=== PATIENT | female | born 1950 | race Asian ===

== ENCOUNTER 2016-10-21 12:48 | Outpatient (CLI) | payer MEDICARE, OTHER | END 2016-10-21 12:49 | disposition home or self-care (01) | DX: M85.88 Other specified disorders of bone density and structure, other site (principal) ==

== ENCOUNTER 2016-10-21 12:52 | Outpatient (CLI) | payer MEDICARE, OTHER | END 2016-10-21 12:53 | disposition home or self-care (01) | DX: Z12.31 Encounter for screening mammogram for malignant neoplasm of breast (principal) ==

== ENCOUNTER 2017-11-23 15:44 | Outpatient (CLI) | payer OTHER, MEDICARE ==
--- NOTE | 2017-11-25 13:08 | Mammography Report ---
Procedure Date: 11/23/2017 Accession Number: [id number] / [id number] Procedure: MGN - Screening Mammo Dig Bilat CPT Code: FULL RESULT: EXAM: Screening Mammo Dig Bilat DATE: 11/23/2017 4:00 PM CLINICAL HISTORY: Routine screening TECHNIQUE: Bilateral CC and MLO views were obtained. COMPARISON: 10/21/2016, 10/24/2015, 10/17/2014, 10/24/2013, and 10/18/2012 FINDINGS: The breast tissue is heterogeneously dense. No significant interval change. No suspicious masses, clustered microcalcifications, skin thickening, or regions of architectural distortion are identified. IMPRESSION: Negative. RECOMMENDATION: Routine annual screening unless otherwise clinically indicated. BIRADS CATEGORY 1: Negative. STANDARD QUALIFYING STATEMENTS: 1. This examination was reviewed with the aid of Computer-Aided Detection (CAD). 2. A negative or benign imaging report should not delay biopsy if clinically suspicious findings are present. Consider surgical consultation if warrented. More than 5% of cancers are not identified by imaging. 3. Dense breasts may obscure an underlying neoplasm.
== END 2017-11-23 15:45 | disposition home or self-care (01) ==
LOC: DI.N 15:44
PROVIDERS: ATTEND Physician Assistant Medical
DX: Z12.31 Encounter for screening mammogram for malignant neoplasm of breast (principal)
CPT/HCPCS: 77067

== ENCOUNTER 2018-05-13 07:36 | Outpatient (CLI) | payer MEDICARE, OTHER ==
[2018-05-13 19:55] LABS: HB2 TOTAL 13.4 g/dL; HEMOGLOBIN A1C 0.61 g/dL; HEMOGLOBIN A1C % 6.3 % (4.6-6.2)
== END 2018-05-13 23:59 | disposition home or self-care (01) ==
LOC: LAB.N 07:36
PROVIDERS: ATTEND Physician Assistant Medical
DX: R73.9 Hyperglycemia, unspecified (principal)
CPT/HCPCS: 36415; 83036

== ENCOUNTER 2018-10-08 10:10 | Outpatient (CLI) | payer OTHER, MEDICARE ==
--- NOTE | 2018-10-08 16:19 | XRAY Report ---
Reason: SHOULDER IMPINGEMENT SYNDROME,LEFT Procedure Date: 10/08/2018 Accession Number: [id number] / [id number] Procedure: WCP - Shoulder 2 View LT CPT Code: FULL RESULT: EXAM: LEFT SHOULDER RADIOGRAPHY EXAM DATE: 10/08/2018 10:16 AM. CLINICAL HISTORY: Chronic left shoulder pain. COMPARISON: None. TECHNIQUE: 2 views. FINDINGS: Bones: Normal. No fracture or bone lesion. Joints: The glenohumeral and acromioclavicular joints are normal. Soft tissues: The visualized hemithorax is unremarkable. No soft tissue swelling. IMPRESSION: Normal shoulder radiography. RADIA
== END 2018-10-08 10:11 | disposition home or self-care (01) ==
LOC: DI.WCP 10:10
PROVIDERS: ATTEND Physician Assistant Medical
DX: M75.42 Impingement syndrome of left shoulder (principal)

== ENCOUNTER 2018-10-11 08:50 | Outpatient (CLI) | payer OTHER, MEDICARE ==
[2018-10-11 12:30] LABS: BASOPHILS # (AUTO) 0.1 10^3/uL (0.0-0.1); EOSINOPHILS # (AUTO) 0.2 10^3/uL (0.0-0.7); EOSINOPHILS % (AUTO) 3.5 %; HGB - HEMOGLOBIN 12.6 g/dL (12.0-16.0); LYMPHOCYTES # (AUTO) 1.4 10^3/uL (1.5-3.5); LYMPHOCYTES % (AUTO) 22.3 %; MEAN CORPUSCULAR HEMOGLOBIN 31.8 pg (27.0-31.0); MEAN CORPUSCULAR HGB CONC 33.1 g/dL (32.0-36.0); MEAN CORPUSCULAR VOLUME 96.1 fL (81.0-99.0); MEAN PLATELET VOLUME 8.7 fL (7.9-10.8); MONOCYTES # (AUTO) 0.3 10^3/uL (0.0-1.0); MONOCYTES % (AUTO) 5.5 %; NEUTROPHILS # (AUTO) 4.1 10^3/uL (1.5-6.6); NEUTROPHILS % (AUTO) 67.7 %; PLT - PLATELET COUNT 250 10^3/uL (130-450); RED BLOOD COUNT 3.97 10^6/uL (4.20-5.40); RED CELL DISTRIBUTION WIDTH 12.9 % (12.0-15.0); WHITE BLOOD COUNT 6.1 x10^3/uL (4.8-10.8)
[2018-10-11 14:34] LABS: ALBUMIN 4.4 g/dL (3.2-5.5); ALBUMIN/GLOBULIN RATIO 1.4 (1.0-2.2); ALKALINE PHOSPHATASE 48 IU/L (42-121); ALT ALANINE AMINOTRANSFERASE 21 IU/L (10-60); AST ASPARTATE AMINOTRANSFERASE 24 IU/L (10-42); BILIRUBIN,TOTAL 0.9 mg/dL (0.2-1.0); BUN - BLOOD UREA NITROGEN 34 mg/dL (6-20); CALCIUM 9.3 mg/dL (8.5-10.3); CARBON DIOXIDE - CO2 28 mmol/L (21-32); CHLORIDE 97 mmol/L (101-111); CHOL/HDL RATIO 2.8 (<4.4); CHOLESTEROL 146 mg/dL; CREATININE 0.8 mg/dL (0.4-1.0); GFR - MDRD 71 (>89); GLUCOSE 139 mg/dL (70-100); HDL CHOLESTEROL 52 mg/dL; LDL CHOLESTEROL,CALCULATED 69 mg/dL; LDL/HDL RATIO 1.3 (<4.4); SODIUM 136 mmol/L (135-145); TOTAL PROTEIN 7.6 g/dL (6.7-8.2); VLDL CHOLESTEROL 25 mg/dL
[2018-10-12 12:43] LABS: HEPATITIS C ANTIBODY NON-REACTIVE (NON-REACTIVE)
== END 2018-10-11 08:51 | disposition home or self-care (01) ==
LOC: LAB.WCP 08:50
PROVIDERS: ATTEND Physician Assistant Medical
DX: Z00.00 Encounter for general adult medical examination without abnormal findings (principal); Z11.59 Encounter for screening for other viral diseases; E78.5 Hyperlipidemia, unspecified; J44.9 Chronic obstructive pulmonary disease, unspecified
CPT/HCPCS: 36415; 80053; 80061; 83721; 84443; 85025; 86803

== ENCOUNTER 2018-11-23 16:15 | Outpatient (CLI) | payer OTHER, MEDICARE ==
--- NOTE | 2018-11-24 08:25 | DEXA Report ---
Reason: BONE DISORDER Procedure Date: 11/23/2018 Accession Number: [id number] / [id number] Procedure: DEX - Dexa Spine and/or Hip CPT Code: FULL RESULT: EXAM: Dexa Spine and/or Hip DATE: 11/23/2018 5:05 PM CLINICAL HISTORY: BONE DISORDER TECHNIQUE: Dual energy x-ray absorptiometry (DXA) was performed on a [employer] System. Regions measured are the AP Spine, femoral neck, and if needed forearm. COMPARISON: 10/21/2016. In accordance with the International Society for Clinical Densitometry (ISCD) guidelines, data from previous exams may be reanalyzed using current recommendations and techniques. This is done to allow a more accurate basis for comparison with the current study. FINDINGS: The data for the lumbar spine is as follows: BMD (g/cm/cm) T-SCORE Z-SCORE REGION L1 1.070 -0.5 1.1 L2 1.165 -0.3 1.4 L3 1.299 0.8 2.5 L4 1.460 2.2 3.8 TOTAL 1.271 0.8 2.4 NOTE: All evaluable vertebrae are used for classification The data for the hip is as follows: BMD (g/cm/cm) T-SCORE Z-SCORE REGION Neck 0.840 -1.4 0.2 TOTAL 0.850 -1.2 0.2 NOTE: The femoral neck or total proximal femur, whichever is lowest, is used for classification. DXA RESULTS SUMMARY: Spine SCAN DATE AGE BMD CHANGE VS CHANGE VS PREVIOUS PREVIOUS % [birth year][age]23[birth year]2018 [age] 1.271 0.003 0.2 10/21/2016 66.0 1.268 * Denotes significant change at the 95% confidence level. Denotes dissimilar scan types or analysis methods. DXA RESULTS SUMMARY: Hip SCAN DATE AGE BMD CHANGE VS CHANGE VS PREVIOUS PREVIOUS % [birth year][age]23[birth year]2018 68.1 0.850 -0.031 -3.5 10/21/2016 66.0 0.881 * Denotes significant change at the 95% confidence level. Denotes dissimilar scan types or analysis methods. IMPRESSION: THE WHO CLASSIFICATION BASED ON THE INTERNATIONAL REFERENCE STANDARD IS OSTEOPENIA. THE FRACTURE RISK IS INCREASED. RECOMMENDATION: Patients with diagnosis of osteoporosis or osteopenia should have regular bone mineral density assessment. For those eligible for Medicare, routine testing is allowed once every 2 years. Testing frequency can be increased for patients who have rapidly progressing disease or for those who are receiving medical therapy to restore bone mass. COMMENT: World Health Organization (WHO) definitions for osteoporosis and osteopenia: NORMAL BMD: T-score at -1.0 or higher, fracture risk is low OSTEOPENIA BMD: T-score between -1.0 and -2.5, fracture risk is increased. OSTEOPOROSIS BMD: T-score at -2.5 or lower, fracture risk is high. National Osteoporosis Foundation recommends: 1. Obtain adequate dietary calcium (at least 1200 mg per day) and vitamin D (400-800 international units per day). 2. Participate, as appropriate, in regular weightbearing and muscle-strengthening exercise. 3. Avoid tobacco use and reduce alcohol and caffeine intake. 4. For more detailed information see the website at www.NOF.org.
== END 2018-11-23 16:16 | disposition home or self-care (01) ==
LOC: DI 16:15
PROVIDERS: ATTEND Physician Assistant Medical
DX: M85.88 Other specified disorders of bone density and structure, other site (principal)
CPT/HCPCS: 77080

== ENCOUNTER 2018-11-23 16:17 | Outpatient (CLI) | payer OTHER, MEDICARE ==
--- NOTE | 2018-11-24 09:01 | Mammography Report ---
Reason: ANNUAL Procedure Date: 11/23/2018 Accession Number: [id number] / [id number] Procedure: GONZALO - Screening Mammo Dig Bilat CPT Code: FULL RESULT: EXAM: Screening Mammo Dig Bilat DATE: 11/23/2018 4:49 PM CLINICAL HISTORY: Screening encounter. History of nulliparity. TECHNIQUE: (B) - Bilateral CC and MLO views were obtained. COMPARISON: 11/23/2017 through 10/21/2016. PARENCHYMAL PATTERN: (D) - The breast(s) demonstrate(s) heterogeneously dense fibroglandular parenchyma. FINDINGS: There are coarse typically benign calcifications. There are typically benign vascular calcifications. There are no suspicious masses, calcifications, or areas of distortion. IMPRESSION: Benign findings. BI-RADS category 2. RECOMMENDATION: (ANNUAL) - Recommend routine annual screening mammography. BI-RADS CATEGORY: (2) - Benign Findings. STANDARD QUALIFYING STATEMENTS: 1. This examination was not reviewed with the aid of Computer-Aided Detection (CAD). 2. A negative or benign imaging report should not preclude biopsy if clinically suspicious findings are present. 3. Dense breasts may obscure an underlying neoplasm. 4. This examination was reviewed without the aid of 3D breast imaging (tomosynthesis).
== END 2018-11-23 16:18 | disposition home or self-care (01) ==
LOC: DI 16:17
DX: Z12.31 Encounter for screening mammogram for malignant neoplasm of breast (principal)
CPT/HCPCS: 77067

== ENCOUNTER 2019-03-25 17:45 | Outpatient (CLI) | payer OTHER, MEDICARE ==
[2019-03-25 18:06] LABS: CREATININE 0.8 mg/dL (0.4-1.0)
[2019-03-25] MEDS ORDERED: IOVERSOL 320 100 ML VIAL IVP ONE ×2 (18:40→18:58)
--- NOTE | 2019-03-28 15:40 | CT Report ---
Reason: CALF CLAUDICATION, ARTERIAL INSUFFICIENCY,STENOSIS Procedure Date: 03/25/2019 Accession Number: [id number] / [id number] Procedure: CT - ANGIO ABD RUNOFF W/WO - B/L CPT Code: FULL RESULT: EXAM: ANGIOGRAM ABDOMEN RUNOFF WITH AND WITHOUT- BILATERAL EXAM DATE: 03/25/2019 06:56 PM. INDICATION: Calf claudication, arterial insufficiency, stenosis. COMPARISONS: 05/09/2013 4:25 PM. PELVIS ANGIO 03/25/2019 6:45 PM. TECHNIQUE: Routine helical imaging was performed through the abdomen, pelvis and bilateral lower extremities in arterial phase. IV Contrast: 120 cc of [id number]. Reconstructions: Coronal, sagittal, and 3D MIP reconstructions were performed. In accordance with CT protocol optimization, one or more of the following dose reduction techniques were utilized for this exam: automated exposure control, adjustment of mA and/or KV based on patient size, or use of iterative reconstructive technique. FINDINGS: Vascular: Locations of stenosis greater than 50% described below. Moderate stenosis is defined as 50-75% stenosis. High grade stenosis is defined as >75% stenosis. Atheromatous disease: Diffuse atheromatous plaque disease. Aorta: No hemodynamically significant focal stenosis, aneurysm or dissection. Celiac Bartley: Conventional vascular anatomy noted. Mild atheromatous disease at the origin of the celiac axis. No hemodynamically significant focal stenosis, aneurysm or dissection. SMA: Moderate stenosis at the origin of the SMA is noted. Remaining portions of the SMA are widely patent. Right renal artery: Patent without significant ostial or flow-limiting stenosis. Mild atheromatous narrowing at the origin of the right renal artery. Left renal artery: Patent without significant ostial or flow-limiting stenosis. Mild multifocal diffuse left renal artery atheromatous disease. CATRACHITA: Patent. No hemodynamically significant focal stenosis, aneurysm or dissection. Atheromatous disease noted at the origin of the CATRACHITA. Right Leg: Right Common, External and Internal Iliac: No hemodynamically significant focal stenosis, aneurysm or dissection. Patent right external iliac artery stent. Right Common Femoral, Superficial Femoral and Profunda Femoris arteries: Mild to moderate stenosis at the origin of the right superficial femoral and profunda femoral arteries. No hemodynamically significant stenosis of the right common femoral artery. Mild to moderate multifocal right superficial femoral artery stenosis. Right Popliteal and tibioperoneal Trunk: Patent. Anterior Tibial: Opacified to level of ankle. No hemodynamically significant focal stenosis, aneurysm or dissection. Posterior Tibial: Opacified to level of ankle. No hemodynamically significant focal stenosis, aneurysm or dissection. Peroneal: Opacified to level of ankle. No hemodynamically significant focal stenosis, aneurysm or dissection. Left Leg: Left Common, External and Internal Iliac: No hemodynamically significant focal stenosis, aneurysm or dissection. Patent left external iliac artery stent. Left Common Femoral, Superficial Femoral and Profunda Femoris arteries: No hemodynamically significant focal stenosis, aneurysm or dissection. Left Popliteal and Tibioperoneal Trunk: Patent. Anterior Tibial: Opacified to level of ankle. No hemodynamically significant focal stenosis, aneurysm or dissection. Posterior Tibial: Opacified to level of ankle. No hemodynamically significant focal stenosis, aneurysm or dissection. Peroneal: Opacified to level of ankle. No hemodynamically significant focal stenosis, aneurysm or dissection. Lung bases: Moderate bronchial wall thickening. Dependent atelectasis. Subpleural reticulation is noted bilaterally worse on the right and on the left. Atelectatic changes are noted in the right middle lobe. Small to moderate hiatal hernia. No cardiac enlargement. No pericardial effusion.No pleural effusion. Abdomen: 0.9 cm hypervascular focus in the right liver on image 2, 64 could represent a small flash filling hemangioma. No concerning liver mass or intrahepatic bile duct dilation. 1.6 cm low-density left adrenal nodule on image 2, 66. Remaining adrenal glands are normal. Normal gallbladder, common bile duct, pancreas and spleen. Simple renal cysts. No mass, stone or hydronephrosis. Peritoneal Cavity: No free fluid, free air, or acute inflammatory process.No evidence of intraluminal contrast concerning for hemorrhage. There are multiple diverticula seen which most severely affect the sigmoid colon. No wall thickening or adjacent inflammation seen. No obstruction noted. The appendix is well visualized and normal.Remaining stomach, small bowel and large bowel are normal. Small fat-containing umbilical hernia is noted. No inguinal hernia. Pelvis: Low-density 6.8 cm left ovarian cyst without thickened septations or mural nodules on image 2, 160. Low density 2.8 cm right ovarian cyst on image 163. Uterus is heterogeneous probably representing multiple fibroids.Pelvic contents otherwise normal. Lymph nodes: No pathologic adenopathy noted. Extremities: Lower extremity bones and soft tissues unremarkable.No significant degenerative changes. Diffuse degenerative disk disease and levoscoliosis of the lumbar spine. IMPRESSION: CTA of the abdominal aorta and iliac vessels: 1. Moderate stenosis at the origin of the SMA. Remaining mesenteric vessels are widely patent. 2. No hemodynamically significant focal stenosis, aneurysm or dissection. CTA of the lower extremities: No hemodynamically significant focal stenosis, aneurysm or dissection. 1. Mild to moderate stenosis at the origin of the right profunda femoral and superficial femoral arteries. 2. Multifocal mild to moderate atheromatous stenosis of the right superficial femoral artery. No hemodynamically significant focal stenosis in the remaining vessels of the right lower extremity. 3. No hemodynamically significant focal stenosis in the left lower extremity arterial system. 4. Patent bilateral external iliac artery stents. 5. Three-vessel runoff to the bilateral ankles. CT of the abdomen and pelvis: 1. Diverticulosis. Normal appendix. No inflammatory changes or obstruction. 2. 6.8 cm low density left ovarian cyst without concerning features. Smaller low density right ovarian cyst. Given the patient's age, recommend further evaluation with pelvic ultrasound or MRI examination. 3. Probable 0.9 cm right liver hemangioma. 4.No significant abnormality identified in the abdomen or pelvis. RADIA
== END 2019-03-25 17:46 | disposition home or self-care (01) ==
LOC: DI 17:45
PROVIDERS: ATTEND Surgery Vascular Surgery
DX: K55.1 Chronic vascular disorders of intestine (principal); I70.201 Unspecified atherosclerosis of native arteries of extremities, right leg; K57.30 Diverticulosis of large intestine without perforation or abscess without bleeding; N83.201 Unspecified ovarian cyst, right side; N83.202 Unspecified ovarian cyst, left side
CPT/HCPCS: 36415; 75635; 82565; Q9967

== ENCOUNTER 2019-04-18 08:00 | Outpatient (CLI) | payer OTHER, MEDICARE ==
[2019-04-18 12:22] LABS: ALBUMIN 4.5 g/dL (3.2-5.5); ALBUMIN/GLOBULIN RATIO 1.5 (1.0-2.2); BILIRUBIN,TOTAL 0.8 mg/dL (0.2-1.0); CALCIUM 9.5 mg/dL (8.5-10.3); CREATININE 0.8 mg/dL (0.4-1.0); TOTAL PROTEIN 7.6 g/dL (6.7-8.2)
[2019-04-18 12:38] LABS: HB2 TOTAL 12.9 g/dL; HEMOGLOBIN A1C 0.6 g/dL; HEMOGLOBIN A1C % 6.4 % (4.6-6.2)
== END 2019-04-18 23:59 | disposition home or self-care (01) ==
LOC: LAB.WCP 08:00
PROVIDERS: ATTEND Physician Assistant Medical
DX: R73.9 Hyperglycemia, unspecified (principal)
CPT/HCPCS: 36415; 80053; 83036

== ENCOUNTER 2019-07-15 16:38 | Outpatient (CLI) | payer OTHER, MEDICARE ==
--- NOTE | 2019-07-16 10:15 | Ultrasound Report ---
Reason: OVARIAN MASS Procedure Date: 07/15/2019 Accession Number: [id number] / [id number] Procedure: US - Pelvic w/Transvaginal CPT Code: Final Report FULL RESULT: EXAM: PELVIC ULTRASOUND EXAM DATE: 07/15/2019 05:16 PM. CLINICAL HISTORY: Ovarian mass seen incidentally on CT. COMPARISON: CT angiography 03/25/2019 ANGIO AORTA W/RUNOFF 03/25/2019 6:45 PM. TECHNIQUE: Realtime transabdominal pelvic scan performed to identify the uterus and adnexa and as an overview of other pelvic structures, followed by transvaginal scan to provide greater detail of the uterus and adnexa, with static image documentation. FINDINGS: Uterus: 4.8 x 1.7 x 3.7 cm, volume 16 cc. Anteflexed position. Normal overall size and echotexture. Masses: A centrally calcified exophytic mass from the left lower uterine segment edges 2.7 x 1.5 x 2.2 cm, unchanged. Endometrium: 2 mm. No mass or thickening evident. Cervix: A posterior cervical complex cystic lesion measures 0.7 x 0.8 x 1.4 cm and contains nonvascular internal debris, likely nabothian cyst. This was not well seen on prior CT. Right Ovary: 3.4 x 2.5 x 2.4 cm, volume 10.5 cc. Normal echotexture and blood flow. Dominant follicle or small cyst measures 2.5 cm. Left Ovary: 6.8 x 5.0 x 6.8 cm, volume 121 cc. A prominent simple cyst measures 6.8 x 4.7 x 6.3 cm, unchanged since prior CT. No hemorrhage or torsion evident. Free Fluid: None. Other: None. IMPRESSION: 1. 6.8 cm left ovarian simple cyst unchanged since prior CT. No evidence for hemorrhage or torsion. 2. Left anterior lower uterine segment partially calcified fibroid also unchanged measuring 2.7 cm. 3. 1.4 cm posterior cervical debris-containing nabothian cyst. RADIA
== END 2019-07-15 16:39 | disposition home or self-care (01) ==
LOC: DI 16:38
PROVIDERS: ATTEND Physician Assistant Medical
DX: N83.292 Other ovarian cyst, left side (principal); D25.9 Leiomyoma of uterus, unspecified; N88.8 Other specified noninflammatory disorders of cervix uteri
CPT/HCPCS: 76830; 76856

== ENCOUNTER 2019-08-05 14:36 | Outpatient (CLI) | payer OTHER, MEDICARE ==
--- NOTE | 2019-08-07 22:39 | XRAY Report ---
Reason: COPD Procedure Date: 08/05/2019 Accession Number: [id number] / [id number] Procedure: XR - Chest 2 View X-Ray CPT Code: 30490 Final Report FULL RESULT: EXAM: CHEST RADIOGRAPHY EXAM DATE: 08/05/2019 02:46 PM. CLINICAL HISTORY: COPD. COMPARISON: 10/11/2014 3:46 PM. TECHNIQUE: 2 views. FINDINGS: Lungs/Pleura: No infiltrates. No pleural effusions or pneumothorax. Mediastinum: Heart size within normal limits. No pulmonary vascular congestion. Osseous structures: No significant focal osseous lesions. IMPRESSION: No acute cardiopulmonary process identified radiographically. RADIA
== END 2019-08-05 14:37 | disposition home or self-care (01) ==
LOC: DI 14:36
PROVIDERS: ATTEND Physician Assistant Medical
DX: J44.9 Chronic obstructive pulmonary disease, unspecified (principal)
CPT/HCPCS: 71046

== ENCOUNTER 2019-08-05 14:50 | Outpatient (CLI) | payer OTHER, MEDICARE | END 2019-08-05 14:51 | disposition home or self-care (01) | LOC: LAB 14:50 | PROVIDERS: ATTEND Obstetrics & Gynecology | DX: N83.9 Noninflammatory disorder of ovary, fallopian tube and broad ligament, unspecified (principal) | CPT/HCPCS: 36415; 86304 ==

== ENCOUNTER 2019-08-08 14:55 | Outpatient (CLI) | payer OTHER, MEDICARE | END 2019-08-08 23:59 | disposition home or self-care (01) | LOC: LAB.N 14:55 | PROVIDERS: ATTEND Obstetrics & Gynecology | DX: N83.9 Noninflammatory disorder of ovary, fallopian tube and broad ligament, unspecified (principal) | CPT/HCPCS: 36415; 81599; 86305 ==

== ENCOUNTER 2019-10-13 16:45 | Outpatient (CLI) | payer OTHER, MEDICARE ==
--- NOTE | 2019-10-14 10:35 | Ultrasound Report ---
Reason: OVARIAN MASS Procedure Date: 10/13/2019 Accession Number: [id number] / [id number] Procedure: US - Pelvic w/Transvaginal CPT Code: Final Report FULL RESULT: EXAM: PELVIC ULTRASOUND EXAM DATE: 10/13/2019 06:02 PM. CLINICAL HISTORY: Ovarian mass. COMPARISON: PELVIC W/TRANSVAGINAL 07/15/2019 5:16 PM. TECHNIQUE: Realtime transabdominal pelvic scan performed to identify the uterus and adnexa and as an overview of other pelvic structures, followed by transvaginal scan to provide greater detail of the uterus and adnexa, with static image documentation. FINDINGS: Uterus: 5 x 4.8 x 3 cm, volume 37.7 cc. Anteverted position. Normal overall size and echotexture. Masses: 1. Left partly calcified anterior fundal subserosal, 1.9 x 1.9 x 2.3 cm. Endometrium: 2 mm. No increased vascularity. No endometrial masses. Cervix: Complex nabothian cyst noted. Right Ovary: 3.5 x 2.6 x 3 cm, volume 14.2 cc previously measured 10.5 cc. Within the right ovary is a 2.3 x 2 x 1.9 cm cyst previously measured at 2.5 x 2.1 x 2 cm. Left Ovary: 5.5 x 6.5 x 7.2 cm, volume 134.3 cc, previously 121 cc. Within the left ovary is a 5.8 x 4.3 x 6.4 cm cyst previously measured at 6.8 x 4.7 x 6.3 cm. Overall appearance is similar. Free Fluid: None. Other: None. IMPRESSION: 1. Myomatous uterus. 2. Bilateral ovarian cysts on the right measuring 2.3 cm, previously 2.5 cm although overall similar in size and left ovarian 6.4 cm cyst similar in size, previously measured 6.8 cm. Appearance is similar. Continued interval surveillance recommended of both ovarian cysts considering patient's current postmenopausal status in particular the larger left ovarian cyst therefore follow-up in 6-12 months recommended unless further evaluation is considered warranted with MRI. RADIA
== END 2019-10-13 16:46 | disposition home or self-care (01) ==
LOC: DI 16:45
PROVIDERS: ATTEND Obstetrics & Gynecology
DX: D25.2 Subserosal leiomyoma of uterus (principal); N83.202 Unspecified ovarian cyst, left side; N83.201 Unspecified ovarian cyst, right side
CPT/HCPCS: 76830; 76856

== ENCOUNTER 2019-10-19 15:30 | Outpatient (CLI) | payer OTHER, MEDICARE | END 2019-10-19 23:59 | disposition home or self-care (01) | LOC: LAB.WCP 15:30 | PROVIDERS: ATTEND Obstetrics & Gynecology | DX: N83.9 Noninflammatory disorder of ovary, fallopian tube and broad ligament, unspecified (principal) | CPT/HCPCS: 36415; 81599; 86304; 86305 ==

== ENCOUNTER 2019-11-16 07:58 | Outpatient (CLI) | payer OTHER, MEDICARE ==
[2019-11-16 12:53] LABS: ALBUMIN 4.2 g/dL (3.2-5.5); ALBUMIN/GLOBULIN RATIO 1.4 (1.0-2.2); ALKALINE PHOSPHATASE 51 IU/L (42-121); ALT ALANINE AMINOTRANSFERASE 24 IU/L (10-60); AST ASPARTATE AMINOTRANSFERASE 23 IU/L (10-42); BILIRUBIN,TOTAL 0.6 mg/dL (0.2-1.0); BUN - BLOOD UREA NITROGEN 26 mg/dL (6-20); CALCIUM 9.2 mg/dL (8.5-10.3); CARBON DIOXIDE - CO2 30 mmol/L (21-32); CHLORIDE 100 mmol/L (101-111); CHOL/HDL RATIO 3.6 (<4.4); CHOLESTEROL 192 mg/dL; CREATININE 0.7 mg/dL (0.4-1.0); GLUCOSE 117 mg/dL (70-100); HDL CHOLESTEROL 53 mg/dL; LDL CHOLESTEROL,CALCULATED 116 mg/dL; LDL/HDL RATIO 2.2 (<4.4); SODIUM 139 mmol/L (135-145); TOTAL PROTEIN 7.3 g/dL (6.7-8.2); VLDL CHOLESTEROL 23 mg/dL
[2019-11-16 13:36] LABS: HB2 TOTAL 12.6 g/dL; HEMOGLOBIN A1C 0.63 g/dL; HEMOGLOBIN A1C % 6.7 % (4.6-6.2)
== END 2019-11-16 23:59 | disposition home or self-care (01) ==
LOC: LAB.WCP 07:58
PROVIDERS: ATTEND Physician Assistant Medical
DX: E78.5 Hyperlipidemia, unspecified (principal); R73.9 Hyperglycemia, unspecified
CPT/HCPCS: 36415; 80053; 80061; 83036; 83721

== ENCOUNTER 2019-11-25 15:44 | Outpatient (CLI) | payer OTHER, MEDICARE ==
--- NOTE | 2019-11-30 10:54 | Mammography Report ---
BILATERAL DIGITAL SCREENING MAMMOGRAM: 11/25/2019 CLINICAL: Routine screening. Comparison is made to exams dated: 11/23/2018 mammogram and 10/21/2017 mammogram - [facility]. The tissue of both breasts is heterogeneously dense. This may lower the sensitivity of ma mmography. There is a possible developing asymmetry in the right breast middle depth superior region seen on the mediolateral oblique view only. This is more prominent. No other significant masses, calcifications, or other findings are seen in either breast. IMPRESSION: INCOMPLETE: NEEDS ADDITIONAL IMAGING EVALUATION The possible developing asymmetry in the right breast is indeterminate. Additional views with possible ultrasound are recommended. tomosynthesis view would be helpful for ev aluation of this abnormality. This exam was interpreted at Station ID: [id number]. NOTE: For mammograms, a report in lay terms will be sent to the patient. Approximately 15% of breast malignancies will not be visualized mammographically. In the management of a palpable breast mass, a negative mammogram must not discourage biopsy of a clinically suspicious lesion. Electronically Signed By: Jeremy Terrazas M.D. slc/:11/30/2019 08:34:14 ACR BI-RADS Category 0: Incomplete 3340F PARENCHYMAL PATTERN: (D) - The breast(s) demonstrate(s) heterogeneously dense fibroglandular parenchy ma. BI-RADS CATEGORY: (0) - 0 Mammo and US [id number] Immediate follow-up LATERALITY: (B)
== END 2019-11-25 15:45 | disposition home or self-care (01) ==
LOC: DI 15:44
DX: Z12.31 Encounter for screening mammogram for malignant neoplasm of breast (principal); R92.8 Other abnormal and inconclusive findings on diagnostic imaging of breast
CPT/HCPCS: 77067

== ENCOUNTER 2019-12-16 16:08 | Outpatient (CLI) | payer OTHER, MEDICARE ==
--- NOTE | 2019-12-16 20:05 | Ultrasound Report ---
PROCEDURE: Duplex Lwr Ext Arterial Bilat INDICATIONS: PERIPHERAL VASCULAR DISEASE, W/CLAUDIFICATION TECHNIQUE: Color and pulse Doppler interrogation was performed of both lower extremity arterial systems, with im age documentation. COMPARISON: None FINDINGS: Right lower extremity: Common femoral artery: 249 cm/sec, with monophasic flow. Deep femoral artery: 76 cm/sec, with monophasic flow. Proximal superficial femoral artery: 185 cm/sec, with monophasic flow. Mid superficial femoral artery: 87 cm/sec, with monophasic flow. Distal superficial femoral artery: 85 cm/sec, with monophasic flow. Popliteal artery: 63 cm/sec, with monophasic flow. Posterior tibial artery: 50 cm/sec, with monophasic flow. Anterior tibial artery/dorsalis pedis: 18 cm/sec, with monophasic flow. Lewis-scale imaging description: Extensive atherosclerotic plaque is present throughout the right low er extremity arteries. Left lower extremity: Common femoral artery: 155 cm/sec, with biphasic flow. Deep femoral artery: 107 cm/sec, with biphasic flow. Proximal superficial femoral artery: 152 cm/sec, with biphasic flow. Mid superficial femoral artery: 216 cm/sec, with biphasic flow. Distal superficial femoral artery: 132 cm/sec, with biphasic flow. Popliteal artery: 68 cm/sec, with biphasic flow. Posterior tibial artery: 26 cm/sec, with monophasic flow. Anterior tibial artery/dorsalis pedis: 70 cm/sec, with monophasic flow. Lewis-scale imaging description: Extensive atherosclerotic plaque is present throughout the right low er extremity arteries. IMPRESSION: 1. Monophasic waveforms throughout the right lower extremity arteries and extensive atherosclerotic p laque throughout. Findings suggest inflow stenosis within the iliac arteries. If further characteriza tion is warranted, CTA with bilateral lower extremity runoff could be helpful. Additionally, if the p atient endorses symptoms of claudication, CTA could be used for operative planning in the setting of possible percutaneous transluminal angioplasty. 2. Biphasic and monophasic waveforms throughout the left lower extremity. Slight increase in velocity within the midportion of the left SFA may represent a hemodynamically significant stenosis. Please note, if the patient endorses claudication symptoms and is interested in therapeutic intervent ion, please consider a consultation with interventional radiology at [facility] (ambulato ry consult to interventional radiology) with Todd Fairbanks, or [facility]. Reviewed by: Deb Brooks MD on 12/16/2019 8:03 PM PDT Approved by: Deb Brooks MD on 12/16/2019 8:03 PM PDT Station ID: [id number]
== END 2019-12-16 16:09 | disposition home or self-care (01) ==
LOC: DI 16:08
PROVIDERS: ATTEND Physician Assistant Medical
DX: I77.9 Disorder of arteries and arterioles, unspecified (principal)
CPT/HCPCS: 93925

== ENCOUNTER 2020-03-13 08:00 | Outpatient (CLI) | payer OTHER, MEDICARE ==
[2020-03-13 18:33] LABS: ALBUMIN 4.3 g/dL (3.2-5.5); ALBUMIN/GLOBULIN RATIO 1.1 (1.0-2.2); ALKALINE PHOSPHATASE 62 IU/L (42-121); ALT ALANINE AMINOTRANSFERASE 22 IU/L (10-60); AST ASPARTATE AMINOTRANSFERASE 26 IU/L (10-42); BILIRUBIN,TOTAL 1.1 mg/dL (0.2-1.0); BUN - BLOOD UREA NITROGEN 34 mg/dL (6-20); CALCIUM 9.4 mg/dL (8.5-10.3); CARBON DIOXIDE - CO2 26 mmol/L (21-32); CHLORIDE 102 mmol/L (101-111); CHOL/HDL RATIO 3.4 (<4.4); CHOLESTEROL 150 mg/dL; CREATININE 1.3 mg/dL (0.4-1.0); CREATININE,URINE 52.3 mg/dL; GLUCOSE 100 mg/dL (70-100); HDL CHOLESTEROL 44 mg/dL; LDL CHOLESTEROL,CALCULATED 82 mg/dL; LDL/HDL RATIO 1.9 (<4.4); MICROALBUM/CREATININE RATIO,UR 28.7 ug/mg (<30.0); MICROALBUMIN,URINE 1.5 mg/dL (0-300.0); SODIUM 140 mmol/L (135-145); TOTAL PROTEIN 8.3 g/dL (6.7-8.2); VLDL CHOLESTEROL 24 mg/dL
[2020-03-13 20:59] LABS: HEMOGLOBIN A1c% 6.7 % (4.27-6.07)
== END 2020-03-13 23:59 | disposition home or self-care (01) ==
LOC: LAB.WCP 08:00
PROVIDERS: ATTEND Physician Assistant Medical
DX: E11.9 Type 2 diabetes mellitus without complications (principal)
CPT/HCPCS: 36415; 80053; 80061; 82043; 82570; 83036; 83721

== ENCOUNTER 2020-03-24 14:35 | Outpatient (CLI) | payer OTHER, MEDICARE ==
--- NOTE | 2020-03-24 17:54 | XRAY Report ---
PROCEDURE: Hip w/Pelvis 1V LT INDICATIONS: LEFT HIP PAIN TECHNIQUE: AP pelvis with lateral view(s) of the bilateral hip(s). COMPARISON: None. FINDINGS: Bones: No fractures or dislocations. Mild scoliosis. Pelvic ring appears intact. No avascular necro sis of the left femoral head. Moderate joint space narrowing, acetabular roof sclerosis, and small os teophytes. No suspicious bony lesions. Soft tissues: Prominent stool in the colon. No suspicious soft tissue calcifications. Bilateral exter nal iliac stents. IMPRESSION: No fracture or dislocation identified. Moderate left hip DJD. Reviewed by: Jeremy Terrazas MD on 03/24/2020 5:52 PM PDT Approved by: Jeremy Terrazas MD on 03/24/2020 5:52 PM PDT Station ID: [id number]
== END 2020-03-24 14:36 | disposition home or self-care (01) ==
LOC: DI 14:35
PROVIDERS: ATTEND Physician Assistant Medical
DX: M16.12 Unilateral primary osteoarthritis, left hip (principal)

== ENCOUNTER 2020-04-05 08:00 | Outpatient (CLI) | payer OTHER, MEDICARE ==
[2020-04-05 18:50] LABS: CALCIUM 9.4 mg/dL (8.5-10.3); CREATININE 1.2 mg/dL (0.4-1.0)
== END 2020-04-05 08:01 | disposition home or self-care (01) ==
LOC: LAB.WCP 08:00
PROVIDERS: ATTEND Physician Assistant Medical
DX: E87.6 Hypokalemia (principal)
CPT/HCPCS: 36415; 80048

== ENCOUNTER → 2020-04-13 | Outpatient (CLI) | payer OTHER, MEDICARE ==
--- NOTE | 2020-04-13 16:22 | XRAY Report ---
PROCEDURE: Shoulder 3 View LT INDICATIONS: LEFT SHOULDER PAIN TECHNIQUE: 5 views of the shoulder were acquired. COMPARISON: None. FINDINGS: Bones: No fractures or dislocations. No suspicious bony lesions. Visualized ribs appear intact. M ild glenohumeral and acromioclavicular degenerative changes are seen. Soft tissues: No suspicious soft tissue calcifications. Atherosclerotic calcifications are seen in the aorta. IMPRESSION: No acute osseous abnormality. Mild glenohumeral and acromioclavicular degenerative changes are seen. If symptoms persist, further evaluation with MRI or CT may be obtained. Reviewed by: Delbert Love MD on 04/13/2020 4:20 PM [facility] Approved by: Delbert Love MD on 04/13/2020 4:20 PM PST Station ID: [id number]
== END ==
LOC: DI.WCP 08:02
PROVIDERS: ATTEND Orthopaedic Surgery
DX: M75.42 Impingement syndrome of left shoulder (principal); M19.012 Primary osteoarthritis, left shoulder

== ENCOUNTER 2020-04-14 07:50 | Outpatient (CLI) | payer OTHER, MEDICARE ==
--- NOTE | 2020-04-14 19:06 | Ultrasound Report ---
PROCEDURE: Pelvic w/Transvaginal INDICATIONS: OVARIAN MASS TECHNIQUE: Real-time scanning was performed of the pelvic organs, with image documentation. Additional endovagi nal scanning was necessary due to incomplete visualization of the adnexal and endometrial structures by transabdominal scanning. COMPARISON: 10/13/2019. FINDINGS: Transabdominal scanning: Limited scanning through the kidneys shows no hydronephrosis. No pathologi c free abdominal or pelvic fluid. Inferior left renal cyst measuring up to 2.4 cm. Endovaginal scanning: Uterus: Uterus is normal in size at 5.0 x 2.9 x 4.0 cm. The endometrium measures 2 mm in combined t hickness. Uterine echotexture is heterogeneous. There is a 2.2 x 1.7 x 2.6 cm subserosal uterine fibr oid noted in the left anterior aspect of the uterine fundus. This previously measured up to 2.3 cm in maximum dimension. There is a nabothian cyst identified which measures 1.3 cm in maximum dimension. Ovaries: Right ovary measures 2.6 x 2.2 x 2.3 cm. Previously described right ovarian cyst now measures 1.7 x 1 .7 x 1.7 cm, previously 2.3 x 2.0 x 1.9 cm. Left ovary measures 5.7 x 4.8 x 6.0 cm. Large cyst seen o n prior study now measures 5.3 x 4.3 x 5.4 cm, previously 5.8 x 4.3 x 6.4 cm. IMPRESSION: 1. Redemonstration of bilateral ovarian cysts which appear smaller in size compared to the prior stud y. Given their size, recommend continued annual surveillance. 2. Stable to slightly more prominent subserosal left anterior uterine fibroid. Attention to this can be made on follow-up imaging. 3. No acute sonographic abnormalities identified in the pelvis. Reviewed by: Mina Isaac MD on 04/14/2020 6:04 PM [facility] Approved by: Mina Isaac MD on 04/14/2020 6:04 PM [facility] Station ID: [id number]
== END 2020-04-14 07:51 | disposition home or self-care (01) ==
LOC: DI 07:50
PROVIDERS: ATTEND Obstetrics & Gynecology
DX: N83.202 Unspecified ovarian cyst, left side (principal); N83.201 Unspecified ovarian cyst, right side; D25.2 Subserosal leiomyoma of uterus
CPT/HCPCS: 76830; 76856

== ENCOUNTER 2020-04-21 17:45 | Outpatient (CLI) | payer OTHER, MEDICARE ==
--- NOTE | 2020-04-21 19:50 | Ultrasound Report ---
PROCEDURE: Retroperitoneal Limited INDICATIONS: PVD W/CLAUDICATION TECHNIQUE: Real time scanning was performed of the aorta and iliac arteries, with image documentatio n. COMPARISON: CTA 03/25/2019 FINDINGS: Aorta: Proximal aortic diameter measures 2.4 x 2.4 cm. Mid-aorta measures 2.1 x 2.2 cm. Distal aor tic diameter is 2.0 x 1.5 cm. Iliac arteries: Right common iliac artery measures 1.1 x 1.1 cm. Left common iliac artery measures 1.1 x 0.9 cm. Calcified atherosclerotic plaque is seen throughout the visualized arteries. IMPRESSION: Negative for abdominal aortic aneurysm. Reviewed by: Delbert Love MD on 04/21/2020 7:49 PM PST Approved by: Delbert Love MD on 04/21/2020 7:49 PM PST Station ID: [id number]
--- NOTE | 2020-04-21 20:31 | Ultrasound Report ---
PROCEDURE: Ankle Brachial Index INDICATIONS: PVD W/CLAUDICATION TECHNIQUE: Ankle-brachial indices were obtained bilaterally and recorded. COMPARISONS: None. FINDINGS: Right posterior tibial artery velocity is 67.6 cm/s with biphasic waveform. Right dorsalis pedis [place] 16.1 cm/s with monophasic waveform. Right ankle pressure 124/61 mmHg. Right brachial pressure 14 7/60 mmHg. Right ankle brachial index (CIRA): 0.8 Left posterior tibial artery velocity is 43.5 cm/s with biphasic waveform. Right dorsalis pedis veloc ity 52.0 cm/s with biphasic waveform. Left ankle pressure 128/50 mmHg. Left brachial pressure 156/54 mmHg. Left ankle brachial index (CIRA): 0.8 Healing potential: Ankle pressures >55 mm Hg in non-diabetics and >80 mm Hg in diabetics are likely to achieve primary h ealing of ischemic foot ulcers. Toe pressures >30 mm Hg are likely to achieve primary healing of ischemic foot ulcers, toe or transme tatarsal amputations. IMPRESSION: 1. Right ankle-brachial index is 0.8, compatible with mild peripheral arterial disease. 2. Left ankle-brachial index is 0.8, compatible with mild peripheral arterial disease. Reviewed by: Delbert Love MD on 04/21/2020 8:30 PM PST Approved by: Delbert Love MD on 04/21/2020 8:30 PM PST Station ID: [id number]
== END 2020-04-21 17:46 | disposition home or self-care (01) ==
LOC: DI 17:45
PROVIDERS: ATTEND Physician Assistant Medical
DX: I73.9 Peripheral vascular disease, unspecified (principal)
CPT/HCPCS: 76775; 93922

== ENCOUNTER 2020-06-15 15:42 | Outpatient (CLI) | payer OTHER, MEDICARE ==
--- NOTE | 2020-06-15 16:47 | XRAY Report ---
PROCEDURE: Hip w/Pelvis 2-3V LT INDICATIONS: LUMBAR SPINAL STENOSIS TECHNIQUE: AP pelvis with lateral view(s) of the bilateral hip(s). COMPARISON: 03/24/2020 FINDINGS: Bones: No fractures or dislocations. Pelvic ring appears intact. No suspicious bony lesions. Moder ate hip joint space narrowing and periarticular osteophyte formation are present. Soft tissues: The visualized bowel gas pattern is normal. No suspicious soft tissue calcifications. Bilateral iliac artery stents. Moderate vascular calcification. IMPRESSION: 1. Bilateral hip osteoarthritis. 2. No acute fracture. No osseous lesion. If symptoms and/or clinical suspicion for pathology continue , further assessment with repeat plain films, or advanced imaging (e.g., CT, MRI, or bone scan) is re commended for further assessment. Reviewed by: Palmira Daly MD on 06/15/2020 4:46 PM PST Approved by: Palmira Daly MD on 06/15/2020 4:46 PM PST Station ID: [id number]
--- NOTE | 2020-06-15 16:59 | XRAY Report ---
PROCEDURE: Cervical Spine Complete INDICATIONS: CERVICAL SPINAL STENOSIS TECHNIQUE: 6 view(s) of the cervical spine were acquired. COMPARISON: None. FINDINGS: Bones: No fractures or dislocations to the C7-T1 level. Grade 1 anterolisthesis of C3 on C4 is seen . Degenerative endplate changes and decreased intervertebral disc space is seen at C4-5 through C6-7 levels. Oblique views shows bilateral bony foraminal stenosis at C3-4 through C5-6 levels. The latera l masses of C1 appear intact on the odontoid view. No suspicious bony lesions. Soft tissues: No prevertebral soft tissue swelling. IMPRESSION: 1. Grade 1 anterolisthesis of C3 on C4. No acute fracture or dislocation. 2. Degenerative disc disease throughout cervical spine with suggestion of bilateral bony foraminal st enosis at C3-4 through C5-6 levels. Reviewed by: Yo Falcon MD on 06/15/2020 4:57 PM PST Approved by: Yo Falcon MD on 06/15/2020 4:57 PM PST Station ID: [id number]
--- NOTE | 2020-06-15 18:03 | MRI Report ---
PROCEDURE: Lumbar Spine W/O INDICATIONS: LUMBAR SPINAL STENOSIS TECHNIQUE: Noncontrast sagittal T1 spin echo and T2 fast echo, sagittal STIR, axial T1 and T2 fast spin echo thr ough the lumbar spine. In cases with scoliosis, additional coronal T2 fast spin echo may be performe d. COMPARISON: Correlation is made with the lumbar radiographs, 06/14/2020. FINDINGS: Image quality: Motion artifact is noted. Alignment and Curvature: There is mild to moderate levoconvex lumbar scoliosis. No significant AP a lignment abnormality can be seen. Bone Marrow: Marrow is of normal overall signal. No acute vertebral body compression fractures. Sc attered remote Schmorl's nodes are seen, with the most prominent seen at the inferior endplate of T12 on the left. Spinal Cord: Conus medullaris terminates at the L1 level. Visualized cord demonstrates normal signa l and size. Paraspinous Soft Tissues: No paravertebral masses. At the anterior pole of the left kidney, there i s an apparent simple cyst seen that measures 3 cm. T11-T12: Mild to moderate loss of disc height is seen. Bridging anterior osteophytes are seen. At howie st moderate bilateral neuroforaminal narrowing can be seen. Mild central canal narrowing is seen. T12-L1: Mild to moderate loss of disc height and disc signal can be seen. Moderate disc bulge is see n, which is eccentric to the left. There is moderate left-sided and minimal right-sided neuroforamina l narrowing seen. Mild central canal narrowing is seen. L1-L2: At least moderate loss of disc height and disc signal can be seen. Bridging anterior osteop hytes are seen. Moderate disc bulge is seen, which is eccentric to the left. There is mild to moderat e right-sided and mild left-sided neuroforaminal narrowing seen. There is at least moderate right-mehnaz ed and moderate to severe left-sided neuroforaminal narrowing seen. A degree of compression can be se en upon the exiting left L1 nerve root. Mild central canal narrowing is seen. L2-L3: Moderate loss of disc height and signal are seen. At least moderate disc bulge is seen. Zuly dging osteophytes are seen on the right. There is at least moderate right-sided and moderate left-si ded facet hypertrophy seen. There is moderate left-sided and moderate to severe right-sided neurofora gerard narrowing seen. Moderate central canal narrowing is seen. L3-L4: Moderate loss of disc height and signal are seen. Moderate disc bulge is seen, which is ec centric to the right side. Relatively prominent bridging endplate osteophytes can be seen on the righ t side. There is moderate to prominent right-sided and moderate left-sided facet hypertrophy seen. Th ere is mild to moderate left-sided and moderate to severe right-sided neuroforaminal narrowing seen. Moderate central canal narrowing is seen. L4-L5: There is at least moderate loss of disc height and disc signal seen on the right side. Bridg ing endplate osteophytes can be seen on the right. Moderate disc bulge is seen, which is eccentric to the right. Moderate to prominent facet hypertrophy is seen, right worse than left. There is moderate left-sided and moderate to severe right-sided neuroforaminal narrowing seen. There is a degree of co mpression seen upon the exiting right L4 nerve root. Moderate central canal narrowing is seen. L5-S1: Mild loss of disc height and disc signal are seen. Moderate disc bulge is seen, which is ecc entric to the left. There is moderate left-sided and moderate to severe right-sided facet hypertrophy seen. There is mild to moderate right-sided and moderate to severe left-sided neuroforaminal narrowi ng seen. A degree of compression can be seen upon the exiting left L5 nerve root. Moderate central c anal narrowing is seen. IMPRESSION: Levoconvex scoliosis and multiple levels of relatively prominent lumbar spine degenerati ve change can be seen. Several levels of moderate to severe neuroforaminal narrowing can be seen, with associated exiting ne rve root compression. Moderate central canal narrowing can be seen at L2-L3, L3-L4, L4-L5, and L5-S1. Reviewed by: Robin Jordan MD on 06/15/2020 5:02 PM [facility] Approved by: Robin Jordan MD on 06/15/2020 5:02 PM [facility] Station ID: [id number]
--- NOTE | 2020-06-15 18:14 | MRI Report ---
PROCEDURE: Cervical Spine W/O INDICATIONS: CERVICAL SPINAL STENOSIS TECHNIQUE: Noncontrast sagittal T1 spin echo and T2 fast spin echo, sagittal STIR, foraminal oblique sagittal T2 fast spin echo, and axial gradient echo or T2 fast spin echo through the cervical spine. Coronal T 2-weighted images were also performed in this patient. COMPARISON: Correlation is made with the accompanying cervical spine plain films, 06/15/2020. FINDINGS: Image quality: Motion artifact is noted. Alignment and Curvature: Reversal of the normal cervical lordosis is seen, with the apex at the C4-C5 level. There is minimal retrolisthesis seen at C4-C5 and the C5-C6. The extra convex cervicothoracic scoliotic curvature is seen. Bone Marrow: Marrow demonstrates normal overall signal. Spinal Cord: Visualized spinal cord has normal size and signal. No cerebellar tonsillar herniation. Paraspinous Soft Tissues: No paravertebral masses. Prevertebral soft tissues are normal in thicknes s. C2-C3: The disc height is well-preserved. There is loss of disc signal seen. Moderate disc osteophyt e complex is seen, which is eccentric to the right. There is moderate right-sided and mild left-sided facet hypertrophy seen. There is moderate to severe right-sided and moderate left-sided neuroforamin al narrowing seen. Mild central canal narrowing is seen. C3-C4: Moderate loss of disc height and signal are seen. Moderate disc osteophyte complex is seen , which is eccentric to the right. There is moderate to prominent right-sided and moderate left-sided facet hypertrophy seen. There is moderate to severe bilateral neuroforaminal narrowing seen, right w orse than left. Moderate central canal narrowing is seen. Associated mass effect is seen upon the ventral spinal cord. C4-C5: At least moderate loss of disc height and disc signal can be seen. Moderate disc osteophyte c omplex is seen, which is eccentric to the right. There is a central/left disc osteophyte protrusion s een, as on series 801 image 15. Moderate bilateral neural foraminal narrowing is seen. Moderate to severe bilateral neuroforaminal narrowing can be seen. Moderate to severe central canal narrowing is seen, with associated ventral cord flattening. C5-C6: Moderate to severe loss of disc height and disc signal can be seen. Moderate disc osteophyte complex is seen, which is eccentric to the left. There is a central/right disc osteophyte protrusion seen, as on series 801 image 11. Uncovertebral joint hypertrophy is seen at this level. At least mo derate facet hypertrophy can be seen. Moderate to severe bilateral neuroforaminal narrowing is seen. There is central canal narrowing is seen, as on series 801 image 12. There is associated ventral cord flattening. C6-C7: The disc height is well-preserved. There is loss of disc signal seen. Mild to moderate disc o steophyte complex is seen. There is moderate to prominent left-sided and moderate right-sided facet h ypertrophy seen. There is moderate right-sided and moderate to severe left-sided neuroforaminal narro wing seen. Moderate central canal narrowing is seen. Associated mass effect is seen upon the vent ral spinal cord. C7-T1: No significant abnormality is seen. IMPRESSION: Multiple levels of cervical spine degenerative change are seen, which are overall worst at the C5-C6 level. Reversal of the normal cervical lordosis is seen. This is commonly observed in patients with muscular spasm. Reviewed by: Robin Jordan MD on 06/15/2020 5:13 PM [facility] Approved by: Robin Jordan MD on 06/15/2020 5:13 PM [facility] Station ID: [id number]
--- NOTE | 2020-06-17 06:31 | XRAY Report ---
PROCEDURE: Lumbar Spine Complete INDICATIONS: LUMBAR SPINAL STENOSIS TECHNIQUE: 4 views of the lumbar spine were acquired. COMPARISON: None. FINDINGS: Bones: 5 [id number] vertebrae are present. There is moderate leftward scoliosis of lumbar spin e centered at L3-4 level. Degenerative endplate changes and bilateral facet arthrosis throughout lumb ar spine is seen more prominent at L4-5 and L5-S1 levels. No acute vertebral body compression fractur es. No suspicious bony lesions. Oblique views show no gross pars defects. Bilateral foraminal steno sis at L4-5 and L5-S1 levels are likely present. Soft tissues: Overlying bowel gas pattern is normal. No suspicious soft tissue calcifications. IMPRESSION: Degenerative disc disease throughout lumbar spine with suggestion of bilateral bony fora gerard stenosis at L4-5 and L5-S1 levels. No gross pars defect. No acute compression fracture. Moderat e levoscoliosis. Reviewed by: Yo Falcon MD on 06/15/2020 4:56 PM PST Approved by: Yo Falcon MD on 06/15/2020 4:56 PM PST Station ID: [id number]
--- OUTSIDE RECORDS SUMMARY | 2020-06-20 01:43 | EXTERNAL MEDICAL SUMMARY RPT | Continuity of Care Document ---
:1950 Demographics Phone Unavailable Preferred Language Belarusian Marital Status Unknown Yazidism Affiliation Unknown Race Unknown Ethnic Group Unknown Author Organization [place] Address [address] [place] [address] Phone Care Team Providers Name Role Phone PASophia Unavailable Unavailable Young Unavailable Unavailable Problems date description facility 2020-03-13 08:00 TYPE 2 DIABETES MELLITUS WITHOUT [facility] COMPLICATIONS 2020-03-22 00:00:00 [facility]semia [facility] 2020-03-22 00:00:00 HIP UNILATERAL 2 VIEW [facility] 2020-03-22 00:00:00 Basic Metabolic Panel (BMP) [facility] Primary Care [facility] 2020-03-22 00:00:00 Hypokalemia [facility] 2020-03-22 00:00:00 Chronic kidney disease, [facility] 2020-03-22 00:00:00 Health-related behavior [facility] 2020-03-22 00:00:00 Tobacco use and exposure [facility] Primary Care [facility] 2020-03-22 00:00:00 Exercise [facility] 2020-03-22 00:00:00 Details of drug misuse behavior [facility] Primary Care [facility] 2020-03-22 00:00:00 Alcohol use [facility] 2020-03-22 00:00:00 Tobacco smoking status [facility] 2020-03-22 00:00:00 Total score? [facility] 2020-03-22 00:00:00 [facility] 2020-03-22 00:00:00 [facility] 2020-03-24 14:35 [facility]AL [facility] LEFT HIP 2020-03-24 14:35 PAIN IN LEFT HIP [facility] 2020-04-05 00:00 [facility]EMIA [facility] 2020-04-05 08:00 [facility]PO[facility]ALEMIA [facility] 2020-04-11 00:00:00 SHOULDER COMPLETE 2 V-Ex/Int [facility] 2020-04-13 00:00:00 Disorders of bursae and tendons idb [facility] Primary Care in shoulder region, unspecified [facility] 2020-04-13 00:00:00 Unspecified rotator cuff tear or [facility] rupture of left shoulder, not [facility] specified as traumatic 2020-04-13 00:00:00 Health-related behavior [facility] 2020-04-13 00:00:00 Tobacco use and exposure [facility] 2020-04-13 00:00:00 Exercise [facility] 2020-04-13 00:00:00 Details of drug misuse behavior idb [facility] Primary Care [facility] 2020-04-13 00:00:00 Rotator cuff syndrome [facility] P [facility] 2020-04-13 00:00:00 [facility] 2020-04-13 00:00:00 Tobacco smoking status NHIS [facility] Primary [facility] 2020-04-13 00:00:00 [facility] 2020-04-13 00:00:00 Former smoker [facility] 2020-04-13 08:02 PRIMARY OSTEOARTHRITIS, LEFT [facility] SHOULDER 2020-04-13 08:02 IMPINGEMENT SYNDROME OF LEFT [facility] SHOULDER 2020-04-14 07:50 SUBSEROSAL LEIOMYOMA OF UTERUS [facility] 2020-04-14 07:50 UNSPECIFIED OVARIAN CYST, RIGHT [facility] SIDE 2020-04-14 07:50 UNSPECIFIED OVARIAN CYST, LEFT [facility] SIDE 2020-04-14 07:50 NONINFLAMMATORY DISORD OF OVARY, [facility] 2020-04-14 08:30 NONINFLAMMATORY DISORD OF OVARY, [facility] 2020-04-21 17:45 PERIPHERAL VASCULAR DISEASE, [facility] UNSPECIFIED 2020-04-21 18:15 PERIPHERAL VASCULAR DISEASE, [facility] UNSPECIFIED 2020-05-11 00:00:00 Osteoarthrosis, localized, [facility], involving pelvic region [facility] and thigh 2020-05-11 00:00:00 [facility]inal [facility] 2020-05-11 00:00:00 Spinal stenosis of lumbar [facility] without neurogenic claudication [facility] 2020-05-11 00:00:00 CERVICAL SPINE MIN 4[facility]W [facility] 2020-05-11 00:00:00 LUMBOSACRAL SPINE [address] [facility] 2020-05-11 00:00:00 MRI CERVICAL SPINE [facility] 2020-05-11 00:00:00 [facility] 2020-05-11 00:00:00 HIP UNILATERAL [facility] 2020-05-11 00:00:00 Unilateral [facility] osteoarthritis, left hip [facility] 2020-05-11 00:00:00 Spinal stenosis, cervical [facility] 2020-05-11 00:00:00 Spinal stenosis, lumbar [facility] without neurogenic claudication [facility] 2020-05-11 00:00:00 Spinal stenosis of lumbar [facility] 2020-05-11 00:00:00 Idiopathic osteoarthritis [facility] 2020-05-11 00:00:00 Spinal stenosis in cervical [facility] Primary Care region [facility] 2020-06-19 00:00 TYPE 2 DIABETES MELLITUS WITHOUT [facility] COMPLICATIONS 2020-06-19 00:00:00 Health-related behavior [facility] Primary Care [facility] 2020-06-19 00:00:00 Tobacco use and exposure [facility] Primary Care [facility] 2020-06-19 00:00:00 Exercise [facility] giovana Care [facility] 2020-06-19 00:00:00 Details of drug misuse behavior [facility] Primary Care [facility] 2020-06-19 00:00:00 Alcohol use [facility] giovana [facility] 2020-06-19 00:00:00 Tobacco smoking status [facility] 2020-06-19 00:00:00 Total score? [facility] 2020-06-19 00:00:00 Former smoker [facility] Allergies date description facility MILK/DAIRY PRODUCTS [facility] NO KNOWN ENVIRONMENTAL ALLERGIES [facility]ENICILLINS [facility] PENICILLINS [facility] NO KNOWN ALLERGIES [facility] LACTULOSE [facility] OXYCODONE [facility] CEPHALEXIN [facility] ZOLPIDEM [facility] NISOLDIPINE [facility] GABAPENTIN [facility] VENLAFAXINE [facility] METFORMIN [facility] TRAZODONE [facility] LEVETIRACETAM [facility] DULOXETINE [facility] LATEX [facility] NITROFURANTOIN [facility]OHYD/M-CR[facility] No Known Drug Allergies [facility] meperidine [facility] ADHESIVE \T\ TAPE [facility] AMLODIPINE BESYLATE [facility] CODEINE [facility] HYDROCODONE [facility] LISINOPRIL [facility] NICOTINE [facility] PROCHLORPERAZINE [facility] TETRACYCLINE [facility] NO KNOWN ENVIRONMENTAL ALLERGIES id[facility] PENICILLINS [facility] BEEF CONTAINING PRODUCTS [facility] CHICKEN DERIVED [facility] AMITRIPTYLINE [facility] AMLODIPINE [facility] LEVOFLOXACIN [facility] NEOMYCIN [facility] PENICILLINS [facility] [id number] REDUCTASE INHIBITORS [facility] SULFA (SULFONAMIDE ANTIBIOTICS) [facility] MILK [facility] EGG [facility] WALNUT [facility] PORK DERIVED (PORCINE) [facility] WHEAT BRAN [facility] NO KNOWN ALLERGIES [facility] No Known Drug Allergies [facility] Medications date description facility 2020-03-22 00:00:00 null [facility] 2020-03-22 00:00:00 null [facility] 2020-03-22 00:00:00 POTASSIUM CHLORIDE MERISSA CR [facility] 2020-03-22 00:00:00 POTASSIUM CHLORIDE MERISSA CR [facility] 2020-04-15 00:00:00 null [facility] 2020-04-15 00:00:00 null [facility] 2020-04-15 00:00:00 POTASSIUM CHLORIDE MERISSA ER [facility] 2020-04-15 00:00:00 POTASSIUM CHLORIDE MERISSA ER [facility] Procedures date description facility 2020-03-22 00:00:00 HIP UNILATERAL 2 [facility]IEW [facility] date description facility 2020-03-22 00:00:00 Basic Metabolic Panel (BMP) [facility] date description facility 2020-03-22 00:00:00 [facility] date description facility 2020-04-11 00:00:00 SHOULDER COMPLETE 2 V-Ex/Int [facility] date description facility 2020-04-11 00:00:00 [facility] date description facility 2020-04-13 00:00:00 Major Joint Injection [facility] date description facility 2020-04-13 00:00:00 [facility] date description facility 2020-05-11 00:00:00 CERVICAL SPINE MIN 4VW [facility] date description facility 2020-05-11 00:00:00 LUMBOSACRAL SPINE 4 VIEW [facility] date description facility 2020-05-11 00:00:00 MRI CERVICAL SPINE [facility] date description facility 2020-05-11 00:00:00 MRI LUMBAR SPINE WO [facility] date description facility 2020-05-11 00:00:00 HIP UNILATERAL 2 [facility]IEW [facility] date description facility 2020-05-11 00:00:00 [facility] Results Social History date description facility 2020-03-22 00:00:00 [facility] date description facility 2020-04-13 00:00:00 [facility] date description facility 2020-06-19 00:00:00 [facility] Social History date description facility 2020-03-22 00:00:00 [facility] date description facility 2020-04-13 00:00:00 [facility] date description facility 2020-06-19 00:00:00 Former smoker [facility] date description facility [id number]
== END 2020-06-15 15:43 | disposition home or self-care (01) ==
LOC: DI 15:42
PROVIDERS: ATTEND Orthopaedic Surgery
DX: M47.814 Spondylosis without myelopathy or radiculopathy, thoracic region (principal); M51.34 Other intervertebral disc degeneration, thoracic region; M51.35 Other intervertebral disc degeneration, thoracolumbar region; M48.05 Spinal stenosis, thoracolumbar region; M47.816 Spondylosis without myelopathy or radiculopathy, lumbar region; M51.36 Other intervertebral disc degeneration, lumbar region; M48.061 Spinal stenosis, lumbar region without neurogenic claudication; M47.817 Spondylosis without myelopathy or radiculopathy, lumbosacral region; M51.37 Other intervertebral disc degeneration, lumbosacral region; M48.07 Spinal stenosis, lumbosacral region; M43.12 Spondylolisthesis, cervical region; M47.812 Spondylosis without myelopathy or radiculopathy, cervical region; M50.31 Other cervical disc degeneration, high cervical region; M48.02 Spinal stenosis, cervical region; M16.0 Bilateral primary osteoarthritis of hip

== ENCOUNTER 2020-06-19 16:37 | Outpatient (CLI) | payer OTHER, MEDICARE ==
[2020-06-19 18:58] LABS: ALBUMIN 4.6 g/dL (3.2-5.5); ALBUMIN/GLOBULIN RATIO 1.3 (1.0-2.2); BILIRUBIN,TOTAL 0.8 mg/dL (0.2-1.0); CALCIUM 9.4 mg/dL (8.5-10.3); CREATININE 0.9 mg/dL (0.4-1.0); TOTAL PROTEIN 8.1 g/dL (6.7-8.2)
[2020-06-19 20:15] LABS: HEMOGLOBIN A1c% 6.2 % (4.27-6.07)
== END 2020-06-19 23:59 | disposition home or self-care (01) ==
LOC: LAB.WCP 16:37
PROVIDERS: ATTEND Physician Assistant Medical
DX: E11.9 Type 2 diabetes mellitus without complications (principal)
CPT/HCPCS: 36415; 80053; 83036

== ENCOUNTER 2020-09-11 08:00 | Outpatient (CLI) | payer OTHER, MEDICARE ==
[2020-09-11 18:27] LABS: BUN - BLOOD UREA NITROGEN 20 mg/dL (6-20); CALCIUM 9.2 mg/dL (8.5-10.3); CARBON DIOXIDE - CO2 25 mmol/L (21-32); CHLORIDE 105 mmol/L (101-111); CHOL/HDL RATIO 3.1 (<4.4); CHOLESTEROL 160 mg/dL; CREATININE 0.8 mg/dL (0.4-1.0); GFR - MDRD 71 (>89); GLUCOSE 96 mg/dL (70-100); HDL CHOLESTEROL 51 mg/dL; LDL CHOLESTEROL,CALCULATED 85 mg/dL; LDL/HDL RATIO 1.7 (<4.4); POTASSIUM 3.7 mmol/L (3.5-5.0); SODIUM 139 mmol/L (135-145); TRIGLYCERIDES 120 mg/dL; VLDL CHOLESTEROL 24 mg/dL
[2020-09-11 19:46] LABS: ESTIMATED AVERAGE GLUCOSE 143 mg/dL (70-100); HEMOGLOBIN A1c% 6.6 % (4.27-6.07)
== END 2020-09-11 23:59 | disposition home or self-care (01) ==
LOC: LAB.WCP 08:00
PROVIDERS: ATTEND Physician Assistant Medical
DX: E11.9 Type 2 diabetes mellitus without complications (principal)
CPT/HCPCS: 36415; 80048; 80061; 83036; 83721

== ENCOUNTER 2020-10-12 15:07 | Outpatient (CLI) | payer OTHER, MEDICARE ==
--- NOTE | 2020-10-12 16:10 | DEXA Report ---
PROCEDURE: Dexa Spine and/or Hip INDICATIONS: POST MENOPAUSAL TECHNIQUE: Dual energy x-ray absorptiometry (DXA) was performed on a [employer] System. Regions measur ed are the AP Spine, femoral neck, and if needed forearm. COMPARISON: DEXA, 11/23/2018.. FINDINGS: Lumbar Spine: Bone Mineral Density 1.095 g/cm/cm,T score -0.6 there is Left Hip: Bone Mineral Density 0.854 g/cm/cm,T score and is 1.2. Left Femoral Neck: Bone Mineral Density 0.813 g/cm/cm, T score -1.6. (T score greater or equal to -1.0: NORMAL) (T score from -1.1 to -2.4: OSTEOPENIA) (T score less than or equal to -2.5 to: OSTEOPOROSIS) Impression: Based on WHO criteria, the patient is osteopenic. Compared with the last exam, the patien t's bone mineral density in the left femoral neck is not statistically significantly changed. Patients with diagnosis of osteoporosis or osteopenia should have regular bone mineral density assess ment. For those eligible for Medicare, routine testing is allowed once every 2 years. Testing frequ ency can be increased for patients who have rapidly progressing disease or for those who are receivin g medical therapy to restore bone mass. Reviewed by: Ni Guadalupe MD on 10/12/2020 4:09 PM PDT Approved by: Ni Guadalupe MD on 10/12/2020 4:09 PM PDT Station ID: [id number]
== END 2020-10-12 15:08 | disposition home or self-care (01) ==
LOC: DI 15:07
PROVIDERS: ATTEND Physician Assistant Medical
DX: M85.88 Other specified disorders of bone density and structure, other site (principal)

== ENCOUNTER 2020-11-13 15:51 | Outpatient (CLI) | payer OTHER, MEDICARE ==
--- NOTE | 2020-11-13 16:33 | CT Report ---
PROCEDURE: Low Dose Lung Cancer Screen INDICATIONS: TOBACCO ABUSE TECHNIQUE: Noncontrast low-dose 5 mm thick sections acquired from the pulmonary apices to the posterior costophr enic angles. 7 mm thick coronal and sagittal MIP reformats were then acquired. For radiation dose r eduction, the following was used: automated exposure control, adjustment of mA and/or kV according t o patient size. COMPARISON: None. FINDINGS: Image quality: Excellent. Lungs and pleura: No evidence of pneumonia nor edema. 3 mm subpleural nodular density within the rig ht upper lobe posteriorly (series 4 image 74). 3 mm subpleural nodular density within the right upper lobe laterally ((series 4 image 126). Mild reticulonodular density consistent with scarring within t he right middle lobe medial and lateral segments. Calcified granuloma within the right middle lobe la teral segment. Mild reticulonodular density within the right lower lobe posteriorly, consistent with scarring. Mediastinum: Heart size is normal. Moderate catheters chronic calcification of the coronary vascula ture. No pericardial effusion. No mediastinal adenopathy by size criteria. Thoracic aorta and centr al pulmonary arteries are normal in size. Esophagus is normal in caliber. No hiatal hernia. Bones and chest wall: No suspicious bony lesions. No vertebral body compression fractures. No axil reg or supraclavicular adenopathy by size criteria. The thyroid is normal in size and there are no incidental findings. Abdomen: Visualized portions of the upper abdomen demonstrate bilateral renal calcifications, most o f which appear to be vascular. Nonobstructing collecting system calcifications may also be present. IMPRESSION: 1. Small right lung nodules. Lung RADS1. Repeat screening chest CT in one year is recommended. 2. Coronary artery disease. Next line 3. Right lung scarring. 4. Remote granulomatous disease. 5. Nonobstructing renal calcifications. CLINICAL RECOMMENDATION STATEMENTS: In patients <35 years with an ITN detected on CT, MRI, or extrathyroidal ultrasound, the Committee re commends further evaluation with dedicated thyroid ultrasound if the nodule is ?1 cm and has no suspi cious imaging features, and if the patient has normal life expectancy. In patients ?35 years with an ITN detected on CT, MRI, or extrathyroidal ultrasound, the Committee re commends further evaluation with dedicated thyroid ultrasound if the nodule is ?1.5 cm and has no zain picious imaging features, and if the patient has normal life expectancy. (ACR, 2014) Reviewed by: Palmira Daly MD on 11/13/2020 4:32 PM PDT Approved by: Palmira Daly MD on 11/13/2020 4:32 PM PDT Station ID: [id number]
== END 2020-11-13 15:52 | disposition home or self-care (01) ==
LOC: DI 15:51
PROVIDERS: ATTEND Physician Assistant Medical
DX: Z12.2 Encounter for screening for malignant neoplasm of respiratory organs (principal); Z87.891 Personal history of nicotine dependence; R91.8 Other nonspecific abnormal finding of lung field; J84.10 Pulmonary fibrosis, unspecified; I25.10 Atherosclerotic heart disease of native coronary artery without angina pectoris

== ENCOUNTER 2020-12-04 06:17 | Day surgery (SDC) | payer OTHER, MEDICARE ==
[2020-12-04] MEDS ORDERED: LACTATED RINGERS 1,000 ML IV ONE (06:57)
[2020-12-04] MEDS ORDERED: fentaNYL 250 MCG/5 ML VIAL ONE (08:42)
[2020-12-04] MEDS ORDERED: MIDAZOLAM 2 MG/2 ML VIAL ONE (08:42)
[2020-12-04] MEDS ORDERED: LACTATED RINGERS 700 ML IV ONE (09:19)
[2020-12-04 10:04] VITALS: BP 160/87
== END 2020-12-04 06:18 | disposition home or self-care (01) ==
LOC: SDS 06:17
PROVIDERS: ATTEND Surgery
PROC: 0DBH8ZZ Excision of Cecum, Via Natural or Artificial Opening Endoscopic (ICD-10-PCS; principal; 2020-12-04 07:30)
DX: Z12.11 Encounter for screening for malignant neoplasm of colon (principal); D12.0 Benign neoplasm of cecum; K64.4 Residual hemorrhoidal skin tags; K64.8 Other hemorrhoids; K57.30 Diverticulosis of large intestine without perforation or abscess without bleeding; Z80.0 Family history of malignant neoplasm of digestive organs
CPT/HCPCS: 45380; J3010; J7120

== ENCOUNTER 2020-12-07 08:00 | Outpatient (CLI) | payer OTHER, MEDICARE ==
[2020-12-07 18:20] LABS: ALBUMIN 4.5 g/dL (3.2-5.5); ALBUMIN/GLOBULIN RATIO 1.5 (1.0-2.2); ALKALINE PHOSPHATASE 48 IU/L (42-121); ALT ALANINE AMINOTRANSFERASE 28 IU/L (10-60); AST ASPARTATE AMINOTRANSFERASE 32 IU/L (10-42); BILIRUBIN,TOTAL 0.9 mg/dL (0.2-1.0); BUN - BLOOD UREA NITROGEN 18 mg/dL (6-20); CALCIUM 9.1 mg/dL (8.5-10.3); CARBON DIOXIDE - CO2 28 mmol/L (21-32); CHLORIDE 98 mmol/L (101-111); CHOL/HDL RATIO 2.6 (<4.4); CHOLESTEROL 143 mg/dL; CREATININE 0.7 mg/dL (0.4-1.0); GFR - MDRD 82 (>89); GLUCOSE 92 mg/dL (70-100); HDL CHOLESTEROL 55 mg/dL; LDL CHOLESTEROL,CALCULATED 59 mg/dL; LDL/HDL RATIO 1.1 (<4.4); POTASSIUM 3.8 mmol/L (3.5-5.0); SODIUM 135 mmol/L (135-145); TOTAL PROTEIN 7.5 g/dL (6.7-8.2); TRIGLYCERIDES 145 mg/dL; VLDL CHOLESTEROL 29 mg/dL
[2020-12-07 20:30] LABS: ESTIMATED AVERAGE GLUCOSE 143 mg/dL (70-100); HEMOGLOBIN A1c% 6.6 % (4.27-6.07)
== END 2020-12-07 08:01 | disposition home or self-care (01) ==
LOC: LAB.WCP 08:00
PROVIDERS: ATTEND Physician Assistant Medical
DX: E11.9 Type 2 diabetes mellitus without complications (principal)
CPT/HCPCS: 36415; 80053; 80061; 83036; 83721

== ENCOUNTER 2021-01-24 13:09 | Outpatient (CLI) | payer OTHER, MEDICARE ==
--- NOTE | 2021-01-25 13:12 | Mammography Report ---
BILATERAL DIGITAL SCREENING MAMMOGRAM 3D/2D: 01/24/2021 CLINICAL: Routine screening. Comparison is made to exams dated: 01/05/2020 mammogram, 01/05/2020 mammogram, 11/25/2019 mammogram, mammogram, 11/23/2017 mammogram, and 10/21/2017 mammogram - [facility]. The tissue of both breasts is heterogeneously dense. This may lower the sensitivity of mammography. No significant masses, calcifications, or other findings are seen in either breast. There has been no significant interval change. IMPRESSION: NEGATIVE There is no mammographic evidence of malignancy. A 1 year screening mammogram is recommended. This exam was interpreted at Station ID: [id number]. NOTE: For mammograms, a report in lay terms will be sent to the patient. Approximately 15% of breast malignancies will not be visualized mammographically. In the management of a palpable breast mass, a negative mammogram must not discourage biopsy of a clinically suspicious lesion. Electronically Signed By: Juan Jiang M.D. ddp/penrad:01/24/2021 14:25:04 ACR BI-RADS Category 1: Negative 3341F PARENCHYMAL PATTERN: (D) - The breast(s) demonstrate(s) heterogeneously dense fibroglandular ale prado. BI-RADS CATEGORY: (1) - 1 RECOMMENDATION: (ANNUAL) - Recommend routine annual screening mammography. [id number] 1 year screening LATERALITY: (B)
== END 2021-01-24 13:10 | disposition home or self-care (01) ==
LOC: DI 13:09
DX: Z12.31 Encounter for screening mammogram for malignant neoplasm of breast (principal)

== ENCOUNTER → 2021-03-12 | Outpatient (CLI) | payer OTHER, MEDICARE ==
[2021-03-12 18:00] LABS: CALCIUM 9.5 mg/dL (8.5-10.3); CREATININE 0.7 mg/dL (0.4-1.0); POTASSIUM 3.6 mmol/L (3.5-5.0)
[2021-03-12 20:13] LABS: ESTIMATED AVERAGE GLUCOSE 140 mg/dL (70-100); HEMOGLOBIN A1c% 6.5 % (4.27-6.07)
== END ==
LOC: LAB.WCP 08:00
PROVIDERS: ATTEND Physician Assistant Medical
DX: E11.9 Type 2 diabetes mellitus without complications (principal)
CPT/HCPCS: 36415; 80048; 83036

== ENCOUNTER 2021-07-12 07:33 | Outpatient (CLI) | payer OTHER, MEDICARE ==
[2021-07-12 11:58] LABS: BASOPHILS # (AUTO) 0.1 10^3/uL (0.0-0.1); BASOPHILS % (AUTO) 1.1 %; EOSINOPHILS # (AUTO) 0.2 10^3/uL (0.0-0.7); HCT - HEMATOCRIT 38.8 % (37.0-47.0); HGB - HEMOGLOBIN 12.5 g/dL (12.0-16.0); LYMPHOCYTES # (AUTO) 1.9 10^3/uL (1.5-3.5); LYMPHOCYTES % (AUTO) 25.5 %; MEAN CORPUSCULAR HEMOGLOBIN 32.8 pg (27.0-31.0); MEAN CORPUSCULAR HGB CONC 32.2 g/dL (32.0-36.0); MEAN CORPUSCULAR VOLUME 101.8 fL (81.0-99.0); MEAN PLATELET VOLUME 9.8 fL (7.9-10.8); MONOCYTES # (AUTO) 0.4 10^3/uL (0.0-1.0); MONOCYTES % (AUTO) 5.7 %; NEUTROPHILS # (AUTO) 4.9 10^3/uL (1.5-6.6); NEUTROPHILS % (AUTO) 65.4 %; PLT - PLATELET COUNT 284 10^3/uL (130-450); RED BLOOD COUNT 3.81 10^6/uL (4.20-5.40); RED CELL DISTRIBUTION WIDTH 12.5 % (12.0-15.0); WHITE BLOOD COUNT 7.4 x10^3/uL (4.8-10.8)
[2021-07-12 12:27] LABS: ESTIMATED AVERAGE GLUCOSE 146 mg/dL (70-100); HEMOGLOBIN A1c% 6.7 % (4.27-6.07)
[2021-07-12 12:32] LABS: ALBUMIN 4.2 g/dL (3.2-5.5); ALBUMIN/GLOBULIN RATIO 1.2 (1.0-2.2); ALKALINE PHOSPHATASE 54 IU/L (42-121); ALT ALANINE AMINOTRANSFERASE 16 IU/L (10-60); AST ASPARTATE AMINOTRANSFERASE 24 IU/L (10-42); BILIRUBIN,TOTAL 0.6 mg/dL (0.2-1.0); BUN - BLOOD UREA NITROGEN 19 mg/dL (6-20); CALCIUM 9.3 mg/dL (8.5-10.3); CARBON DIOXIDE - CO2 27 mmol/L (21-32); CHLORIDE 101 mmol/L (101-111); CHOLESTEROL 148 mg/dL; CREATININE 0.8 mg/dL (0.4-1.0); GFR - MDRD 71 (>89); GLUCOSE 132 mg/dL (70-100); HDL CHOLESTEROL 50 mg/dL; LDL CHOLESTEROL,CALCULATED 74 mg/dL; LDL/HDL RATIO 1.5 (<4.4); POTASSIUM 3.6 mmol/L (3.5-5.0); SODIUM 137 mmol/L (135-145); THYROID STIMULATING HORMONE 1.2 uIU/mL (0.34-5.60); TOTAL PROTEIN 7.8 g/dL (6.7-8.2); TRIGLYCERIDES 118 mg/dL; VLDL CHOLESTEROL 24 mg/dL
[2021-07-12 18:47] LABS: CREATININE,URINE 29.4 mg/dL; MICROALBUM/CREATININE RATIO,UR 64.6 ug/mg (<30.0); MICROALBUMIN,URINE 1.9 mg/dL (0-300.0)
== END 2021-07-12 07:34 | disposition home or self-care (01) ==
LOC: LAB.N 07:33
PROVIDERS: ATTEND Physician Assistant Medical
DX: E11.9 Type 2 diabetes mellitus without complications (principal); I10 Essential (primary) hypertension
CPT/HCPCS: 36415; 80053; 80061; 82043; 82570; 83036; 83721; 84443; 85025

== ENCOUNTER 2021-10-14 12:02 | Outpatient (CLI) | payer MEDICARE, OTHER ==
[2021-10-14 18:24] LABS: CALCIUM 9.3 mg/dL (8.5-10.3); CREATININE 0.8 mg/dL (0.4-1.0); POTASSIUM 3.9 mmol/L (3.5-5.0)
[2021-10-14 20:25] LABS: ESTIMATED AVERAGE GLUCOSE 154 mg/dL (70-100)
== END 2021-10-14 12:03 | disposition home or self-care (01) ==
LOC: LAB.N 12:02
PROVIDERS: ATTEND Physician Assistant Medical
DX: E11.9 Type 2 diabetes mellitus without complications (principal)
CPT/HCPCS: 36415; 80048; 83036

== ENCOUNTER 2022-02-06 09:11 | Outpatient (CLI) | payer MEDICARE, OTHER ==
--- NOTE | 2022-02-07 10:16 | Mammography Report ---
BILATERAL DIGITAL SCREENING MAMMOGRAM 3D/2D: 02/06/2022 CLINICAL: Routine screening. Comparison is made to exams dated: 01/24/2021 mammogram, 01/05/2020 mammogram, 01/05/2020 mammogram, mammogram, 11/23/2018 mammogram, and 11/23/2017 mammogram - [facility]. Both breasts are heterogeneously dense, which may obscure small masses (category c / 51-75% glandula r tissue). No significant masses, calcifications, or other findings are seen in either breast. There has been no significant interval change. IMPRESSION: NEGATIVE There is no mammographic evidence of malignancy. A 1 year screening mammogram is recommended. Based on the Tyrer Cuzick model (a risk assessment model) the patients lifetime risk is 6.9% and her 10 year risk is 5.2%. According to the ACR, ACS, and NCCN guidelines, an annual breast MRI exam siria g with mammogram is recommended if the patients lifetime risk is 20% or greater. This exam was interpreted at Station ID: [id number]. NOTE: For mammograms, a report in lay terms will be sent to the patient. Approximately 15% of breast malignancies will not be visualized mammographically. In the management of a palpable breast mass, a negative mammogram must not discourage biopsy of a clinically suspicious lesion. Electronically Signed By: Arturo stallings/ramona:02/06/2022 13:21:38 ACR BI-RADS Category 1: Negative 3341F PARENCHYMAL PATTERN: (D) - The breast(s) demonstrate(s) heterogeneously dense fibroglandular ale prado. BI-RADS CATEGORY: (1) - 1 RECOMMENDATION: (ANNUAL) - Recommend routine annual screening mammography. [id number] 1 year screening LATERALITY: (B)
== END 2022-02-06 09:12 | disposition home or self-care (01) ==
LOC: DI.N 09:11
DX: Z12.31 Encounter for screening mammogram for malignant neoplasm of breast (principal)

== ENCOUNTER 2022-02-08 07:51 | Outpatient (CLI) | payer MEDICARE ==
--- NOTE | 2022-02-08 08:52 | CT Report ---
PROCEDURE: Low Dose Lung Cancer Screen INDICATIONS: SCREEN FOR MALIGNANT NEOPLASM OF RESPIRATORY ORGAN TECHNIQUE: Noncontrast low-dose axial images were acquired from the pulmonary apices to the posterior costophren ic angles. Multiplanar MIP reformats were then reconstructed. For radiation dose reduction, the follo wing was used: automated exposure control, adjustment of mA and/or kV according to patient size. COMPARISON: CT chest 11/14/2019 FINDINGS: Image quality: Excellent. Lungs and pleura: Previously identified 3 mm subpleural nodules within the posterior right upper lob e are unchanged. There are streaky areas of opacity within the right middle lobe most suggestive of s carring. Slight appearance of bronchial wall thickening within the bases. No effusions or consolidati ons. Mediastinum: Heart size is normal. No pericardial effusion. No mediastinal adenopathy by size crit eria. Calcified mediastinal lymph nodes are present which can be indicative of prior granulomatous e xposure. Thoracic aorta and central pulmonary arteries are normal in size. Esophagus is normal in ca liber. No hiatal hernia. Bones and chest wall: No suspicious bony lesions. No vertebral body compression fractures. No axil reg or supraclavicular adenopathy by size criteria. The thyroid is normal in size and there are no incidental findings. Abdomen: Visualized upper abdomen solid organs and bowel loops appear normal in the absence of contr ast. IMPRESSION: Stable appearance of bilateral 3 mm pulmonary nodules. No new nodules are identified. Lung rads category 2. Continue annual screening. CLINICAL RECOMMENDATION STATEMENTS: In patients <35 years with an ITN detected on CT, MRI, or extrathyroidal ultrasound, the Committee re commends further evaluation with dedicated thyroid ultrasound if the nodule is "e1 cm and has no susp icious imaging features, and if the patient has normal life expectancy. In patients "e35 years with an ITN detected on CT, MRI, or extrathyroidal ultrasound, the Committee r ecommends further evaluation with dedicated thyroid ultrasound if the nodule is "e1.5 cm and has no s uspicious imaging features, and if the patient has normal life expectancy. (ACR, 2014) Reviewed by: Glo Johns MD on 02/08/2022 8:51 AM PDT Approved by: Glo Johns MD on 02/08/2022 8:51 AM PDT Station ID: [id number]
== END 2022-02-08 07:52 | disposition home or self-care (01) ==
LOC: DI 07:51
PROVIDERS: ATTEND Physician Assistant Medical
DX: Z12.2 Encounter for screening for malignant neoplasm of respiratory organs (principal); R91.8 Other nonspecific abnormal finding of lung field

== ENCOUNTER 2022-04-19 11:10 | Outpatient (CLI) | payer MEDICARE ==
[2022-04-19 18:50] LABS: CALCIUM 8.9 mg/dL (8.5-10.3); POTASSIUM 3.2 mmol/L (3.5-5.0)
[2022-04-20 08:00] LABS: ESTIMATED AVERAGE GLUCOSE 163 mg/dL (70-100); HEMOGLOBIN A1c% 7.3 % (4.27-6.07)
== END 2022-04-19 11:11 | disposition home or self-care (01) ==
LOC: LAB.N 11:10
PROVIDERS: ATTEND Physician Assistant Medical
DX: E11.9 Type 2 diabetes mellitus without complications (principal)
CPT/HCPCS: 36415; 80048; 83036

== ENCOUNTER 2022-05-06 07:51 | Outpatient (CLI) | payer MEDICARE ==
[2022-05-06 12:11] LABS: CALCIUM 9.5 mg/dL (8.5-10.3); POTASSIUM 4.3 mmol/L (3.5-5.0)
== END 2022-05-06 07:52 | disposition home or self-care (01) ==
LOC: LAB.N 07:51
PROVIDERS: ATTEND Physician Assistant Medical
DX: E87.6 Hypokalemia (principal)
CPT/HCPCS: 36415; 80048

== ENCOUNTER 2022-07-22 07:46 | Outpatient (CLI) | payer MEDICARE ==
[2022-07-22 12:03] LABS: ALBUMIN 3.9 g/dL (3.2-5.5); ALBUMIN/GLOBULIN RATIO 1.2 (1.0-2.2); ALKALINE PHOSPHATASE 52 IU/L (42-121); ALT ALANINE AMINOTRANSFERASE 13 IU/L (10-60); AST ASPARTATE AMINOTRANSFERASE 19 IU/L (10-42); BILIRUBIN,TOTAL 0.7 mg/dL (0.2-1.0); BUN - BLOOD UREA NITROGEN 28 mg/dL (6-20); CALCIUM 9.2 mg/dL (8.5-10.3); CARBON DIOXIDE - CO2 28 mmol/L (21-32); CHLORIDE 105 mmol/L (101-111); CHOL/HDL RATIO 2.7 (<4.4); CHOLESTEROL 126 mg/dL; GFR - MDRD 55 (>89); GLUCOSE 141 mg/dL (70-100); HDL CHOLESTEROL 47 mg/dL; LDL CHOLESTEROL,CALCULATED 56 mg/dL; LDL/HDL RATIO 1.2 (<4.4); POTASSIUM 3.8 mmol/L (3.5-5.0); SODIUM 140 mmol/L (135-145); TOTAL PROTEIN 7.1 g/dL (6.7-8.2); TRIGLYCERIDES 113 mg/dL; VLDL CHOLESTEROL 23 mg/dL
[2022-07-22 12:08] LABS: ESTIMATED AVERAGE GLUCOSE 166 mg/dL (70-100); HEMOGLOBIN A1c% 7.4 % (4.27-6.07)
== END 2022-07-22 07:47 | disposition home or self-care (01) ==
LOC: LAB.N 07:46
PROVIDERS: ATTEND Physician Assistant Medical
DX: E11.9 Type 2 diabetes mellitus without complications (principal)
CPT/HCPCS: 36415; 80053; 80061; 83036; 83721

== ENCOUNTER 2022-10-21 10:53 | Outpatient (CLI) | payer MEDICARE ==
[2022-10-21 17:53] LABS: CALCIUM 8.7 mg/dL (8.5-10.3); CREATININE 0.8 mg/dL (0.4-1.0); POTASSIUM 3.5 mmol/L (3.5-5.0)
[2022-10-22 16:36] LABS: ESTIMATED AVERAGE GLUCOSE 163 mg/dL (70-100); HEMOGLOBIN A1c% 7.3 % (4.27-6.07)
== END 2022-10-21 10:54 | disposition home or self-care (01) ==
LOC: LAB.N 10:53
PROVIDERS: ATTEND Physician Assistant Medical
DX: E11.9 Type 2 diabetes mellitus without complications (principal)
CPT/HCPCS: 36415; 80048; 83036

== ENCOUNTER 2022-12-19 12:40 | Outpatient (CLI) | payer MEDICARE ==
--- NOTE | 2022-12-19 14:59 | DEXA Report ---
PROCEDURE: Dexa Spine and/or Hip INDICATIONS: POST MENOPAUSAL TECHNIQUE: Dual energy x-ray absorptiometry (DXA) was performed on a [employer] System. Regions measur ed are the AP Spine, femoral neck, and if needed forearm. COMPARISON: 11/23/2018 FINDINGS: Lumbar Spine: Bone Mineral Density 1.259 g/cm/cm,T score 0.7. Normal, change from previous 1.9% Left Femoral Neck: Bone Mineral Density 0.781 g/cm/cm, T score -1.8. Osteopenia Left Hip: Bone Mineral Density 0.847 g/cm/cm,T score -1.3. Osteopenia, change from previous -0.8% (T score greater or equal to -1.0: NORMAL) (T score from -1.1 to -2.4: OSTEOPENIA) (T score less than or equal to -2.5 to: OSTEOPOROSIS) Impression: By WHO criteria, this patient has low bone density (osteopenia). Minimal change compared to the prior study. Patients with diagnosis of osteoporosis or osteopenia should have regular bone mineral density assess ment. For those eligible for Medicare, routine testing is allowed once every 2 years. Testing frequ ency can be increased for patients who have rapidly progressing disease or for those who are receivin g medical therapy to restore bone mass. Reviewed by: Latasha Linda MD on 12/19/2022 1:58 PM JOY Approved by: Latasha Linda MD on 12/19/2022 1:58 PM JOY Station ID: [id number]
== END 2022-12-19 12:41 | disposition home or self-care (01) ==
LOC: DI 12:40
PROVIDERS: ATTEND Physician Assistant Medical
DX: Z78.0 Asymptomatic menopausal state (principal); M85.89 Other specified disorders of bone density and structure, multiple sites

== ENCOUNTER 2023-01-21 07:59 | Outpatient (CLI) | payer MEDICARE ==
[2023-01-21 11:43] LABS: BASOPHILS # (AUTO) 0.1 10^3/uL (0.0-0.1); BASOPHILS % (AUTO) 1.1 %; EOSINOPHILS # (AUTO) 0.3 10^3/uL (0.0-0.7); EOSINOPHILS % (AUTO) 4.4 %; HCT - HEMATOCRIT 39.2 % (37.0-47.0); HGB - HEMOGLOBIN 12.5 g/dL (12.0-16.0); LYMPHOCYTES # (AUTO) 2.1 10^3/uL (1.5-3.5); LYMPHOCYTES % (AUTO) 28.6 %; MEAN CORPUSCULAR HEMOGLOBIN 29.6 pg (27.0-31.0); MEAN CORPUSCULAR HGB CONC 31.9 g/dL (32.0-36.0); MEAN CORPUSCULAR VOLUME 92.9 fL (81.0-99.0); MEAN PLATELET VOLUME 10.5 fL (7.9-10.8); MONOCYTES # (AUTO) 0.6 10^3/uL (0.0-1.0); MONOCYTES % (AUTO) 7.8 %; NEUTROPHILS # (AUTO) 4.2 10^3/uL (1.5-6.6); NEUTROPHILS % (AUTO) 57.8 %; PLT - PLATELET COUNT 221 10^3/uL (130-450); RED BLOOD COUNT 4.22 10^6/uL (4.20-5.40); RED CELL DISTRIBUTION WIDTH 13.5 % (12.0-15.0); WHITE BLOOD COUNT 7.3 x10^3/uL (4.8-10.8)
[2023-01-21 12:43] LABS: ALBUMIN 4.1 g/dL (3.2-5.5); ALBUMIN/GLOBULIN RATIO 1.1 (1.0-2.2); ALKALINE PHOSPHATASE 57 IU/L (42-121); ALT ALANINE AMINOTRANSFERASE 11 IU/L (10-60); AST ASPARTATE AMINOTRANSFERASE 20 IU/L (10-42); BUN - BLOOD UREA NITROGEN 26 mg/dL (6-20); CALCIUM 9.3 mg/dL (8.5-10.3); CARBON DIOXIDE - CO2 30 mmol/L (21-32); CHLORIDE 101 mmol/L (101-111); CHOL/HDL RATIO 3.5 (<4.4); CHOLESTEROL 137 mg/dL; CREATININE 0.9 mg/dL (0.4-1.0); GFR - MDRD 61 (>89); GLUCOSE 123 mg/dL (70-100); HDL CHOLESTEROL 39 mg/dL; LDL CHOLESTEROL,CALCULATED 70 mg/dL; LDL/HDL RATIO 1.8 (<4.4); POTASSIUM 3.7 mmol/L (3.5-5.0); SODIUM 137 mmol/L (135-145); TOTAL PROTEIN 7.8 g/dL (6.7-8.2); TRIGLYCERIDES 141 mg/dL; VLDL CHOLESTEROL 28 mg/dL
[2023-01-21 12:53] LABS: THYROID STIMULATING HORMONE 4.59 uIU/mL (0.34-5.60)
[2023-01-21 14:10] LABS: ESTIMATED AVERAGE GLUCOSE 154 mg/dL (70-100)
[2023-01-21 15:02] LABS: CREATININE,URINE 118.7 mg/dL; MICROALBUM/CREATININE RATIO,UR 12.6 ug/mg (<30.0); MICROALBUMIN,URINE 1.5 mg/dL (0-300.0)
== END 2023-01-21 08:00 | disposition home or self-care (01) ==
LOC: LAB.N 07:59
PROVIDERS: ATTEND Physician Assistant Medical
DX: E78.5 Hyperlipidemia, unspecified (principal); E11.9 Type 2 diabetes mellitus without complications; J44.9 Chronic obstructive pulmonary disease, unspecified
CPT/HCPCS: 36415; 80053; 80061; 82043; 82570; 83036; 83721; 84443; 85025

== ENCOUNTER 2023-02-16 12:35 | Outpatient (CLI) | payer MEDICARE ==
--- NOTE | 2023-02-17 09:34 | Mammography Report ---
BILATERAL DIGITAL SCREENING MAMMOGRAM 3D/2D: 02/16/2023 CLINICAL: Routine screening. Comparison is made to exams dated: 02/06/2022 mammogram, 01/24/2021 mammogram, 11/25/2019 mammogram, and 11/23/2018 mammogram - [facility]. Both breasts are heterogeneously dense, which may obscure small masses (category c / 51-75% glandular tissue). No significant masses, calcifications, or other findings are seen in either breast. There has been no significant interval change. IMPRESSION: NEGATIVE There is no mammographic evidence of malignancy. A 1 year screening mammogram is recommended. Based on the Tyrer Cuzick model (a risk assessment model) the patients lifetime risk is 6.5% and her 10 year risk is 5.3%. According to the ACR, ACS, and NCCN guidelines, an annual breast MRI exam siria g with mammogram is recommended if the patients lifetime risk is 20% or greater. This exam was interpreted at Station ID: [id number]. NOTE: For mammograms, a report in lay terms will be sent to the patient. Approximately 15% of breast malignancies will not be visualized mammographically. In the management of a palpable breast mass, a negative mammogram must not discourage biopsy of a clinically suspicious lesion. Electronically Signed By: Mina Isaac M.D. aty/:02/16/2023 16:51:09 letter sent: No_Letter ACR BI-RADS Category 1: Negative 3341F PARENCHYMAL PATTERN: (D) - The breast(s) demonstrate(s) heterogeneously dense fibroglandular ale prado. BI-RADS CATEGORY: (1) - 1 Mammogram [id number] 1 year screening LATERALITY: (B)
== END 2023-02-16 12:36 | disposition home or self-care (01) ==
LOC: DI 12:35
DX: Z12.31 Encounter for screening mammogram for malignant neoplasm of breast (principal)

== ENCOUNTER 2023-02-16 12:35 | Outpatient (CLI) | payer MEDICARE ==
--- NOTE | 2023-02-16 17:20 | Ultrasound Report ---
PROCEDURE: Pelvic w/Transvaginal INDICATIONS: OVARIAN MASS TECHNIQUE: Real-time scanning was performed of the pelvic organs, with image documentation. Additional endovagi nal scanning was necessary due to incomplete visualization of the adnexal and endometrial structures by transabdominal scanning. COMPARISON: Pelvic ultrasound 04/14/2020, 10/13/2019 FINDINGS: Uterus: Uterus is anteverted and normal in size at 5.7 x 1.9 x 3.5 cm. The myometrium is homogeneou s. The endometrium measures 1.6 mm in combined thickness. Within the left anterior subserosal regio n there is a 2.7 x 1.4 x 2.0 cm focus of heterogeneous echogenicity previously measuring 2.2 x 1.7 x 2.6 cm. Ovaries: The right ovary measures 2.8 x 3.0 x 2.6 cm, with a calculated ovarian volume of 11.4 cc. The left ovary measures 4.8 x 3.5 x 4.6 cm, with a calculated ovarian volume of 40.4 cc. Bilateral o varian cysts are present measuring 2.3 x 2.5 x 2.3 cm compared to 1.7 x 1.7 x 1.7 cm and 3.5 x 2.8 x 3.7 cm compared to 5.3 x 4.3 x 5.4 cm on the right and left respectively. Other: No pathologic free abdominal or pelvic fluid. IMPRESSION: Bilateral ovarian cystic structures enlarged on the right compared to prior exam and decreased in siz e on the left. Given interval increase in size, malignancy cannot be excluded although felt to be les s likely given the three-year period of stability. However, as clinically indicated, further evaluati on may be obtained with pelvic MRI. Uterine fibroid is present. Reviewed by: Glo Johns MD on 02/16/2023 5:19 PM PDT Approved by: Glo Johns MD on 02/16/2023 5:19 PM PDT Station ID: [id number]
== END 2023-02-16 12:36 | disposition home or self-care (01) ==
LOC: DI 12:35
PROVIDERS: ATTEND Physician Assistant Medical
DX: N83.202 Unspecified ovarian cyst, left side (principal); N83.201 Unspecified ovarian cyst, right side; D25.2 Subserosal leiomyoma of uterus

== ENCOUNTER 2023-04-15 09:36 | Outpatient (CLI) | payer MEDICARE ==
[2023-04-15 12:48] LABS: ESTIMATED AVERAGE GLUCOSE 143 mg/dL (70-100); HEMOGLOBIN A1c% 6.6 % (4.27-6.07)
[2023-04-15 12:50] LABS: CALCIUM 9.6 mg/dL (8.5-10.3); CREATININE 0.8 mg/dL (0.6-1.3); POTASSIUM 3.7 mmol/L (3.5-4.5)
== END 2023-04-15 09:37 | disposition home or self-care (01) ==
LOC: LAB.N 09:36
PROVIDERS: ATTEND Physician Assistant Medical
DX: E11.9 Type 2 diabetes mellitus without complications (principal)
CPT/HCPCS: 36415; 80048; 83036

== ENCOUNTER 2023-06-06 12:32 | Outpatient (CLI) | payer MEDICARE ==
--- NOTE | 2023-06-09 20:26 | Ultrasound Report ---
PROCEDURE: Arterial Duplex Lwr Ext BL INDICATIONS: RAD, CLAUDICATION, RENAL ARTER STENOSIS TECHNIQUE: Color and pulse Doppler interrogation was performed of both lower extremity arterial systems, with im age documentation. COMPARISON: Arterial duplex on March 13, 2022 FINDINGS: Right lower extremity: Common femoral artery (proximal/distal): 128/208 cm/sec, with biphasic flow. Deep femoral artery: 105 cm/sec, with biphasic flow. Proximal superficial femoral artery: 125 cm/sec, with biphasic flow. Mid superficial femoral artery: 115 cm/sec, with biphasic flow. Distal superficial femoral artery: 87 cm/sec, with biphasic flow. Popliteal artery: 44 cm/sec, with biphasic flow. Posterior tibial artery: 53 cm/sec, with biphasic flow. Anterior tibial artery/dorsalis pedis: 63/31 cm/sec, with biphasic flow. Lewis-scale imaging description: Scattered atherosclerotic plaque Left lower extremity: Common femoral artery: 138 cm/sec, with biphasic flow. Deep femoral artery: 58 cm/sec, with biphasic flow. Proximal superficial femoral artery: 86 cm/sec, with biphasic flow. Mid superficial femoral artery: 121 cm/sec, with biphasic flow. Distal superficial femoral artery: 91 cm/sec, with biphasic flow. Popliteal artery: 73 cm/sec, with biphasic flow. Posterior tibial artery: 50 cm/sec, with biphasic flow. Anterior tibial artery/dorsalis pedis: 78/56 cm/sec, with biphasic flow. Lewis-scale imaging description: Scattered atherosclerotic plaque CIRA Right brachial: 170 mmHg Right ankle: 145 mmHg Right ankle brachial index (CIRA): 0.82 Left brachial: ): 172mmHg Left ankle: ): 142mmHg Left ankle brachial index (CIRA): 0.80 Healing potential: Ankle pressures >55 mm Hg in non-diabetics and >80 mm Hg in diabetics are likely to achieve primary h ealing of ischemic foot ulcers. Toe pressures >30 mm Hg are likely to achieve primary healing of ischemic foot ulcers, toe or transme tatarsal amputations. IMPRESSION: 1. Right lower extremity: -Resting CIRA is mildly reduced at 0.82. -Multiphasic waveforms of the arterial vasculature with no velocity shift to suggest a hemodynamicall y significant stenosis. -Elevated velocity in the common femoral artery of 208 cm/S suggestive of a less than 50% stenosis. 2. Left lower extremity: -Resting CIRA is mildly reduced at 0.8. -Multiphasic waveforms of the arterial vasculature with no velocity shift to suggest a hemodynamicall y significant stenosis. IMPRESSION: Multiphasic waveforms in the bilateral lower extremity arterial Reviewed by: Denisha Gutierrez MD on 06/09/2023 8:25 PM PST Approved by: Denisha Gutierrez MD on 06/09/2023 8:25 PM PST Station ID: [id number]
--- NOTE | 2023-06-09 20:26 | Ultrasound Report ---
PROCEDURE: Ankle Brachial Index INDICATIONS: RAD, CLAUDICATION, RENAL ARTER STENOSIS TECHNIQUE: Ankle-brachial indices were obtained bilaterally and recorded. COMPARISONS: Arterial Duplex on March 13, 2022. FINDINGS: Right lower extremity: Common femoral artery (proximal/distal): 128/208 cm/sec, with biphasic flow. Deep femoral artery: 105 cm/sec, with biphasic flow. Proximal superficial femoral artery: 125 cm/sec, with biphasic flow. Mid superficial femoral artery: 115 cm/sec, with biphasic flow. Distal superficial femoral artery: 87 cm/sec, with biphasic flow. Popliteal artery: 44 cm/sec, with biphasic flow. Posterior tibial artery: 53 cm/sec, with biphasic flow. Anterior tibial artery/dorsalis pedis: 63/31 cm/sec, with biphasic flow. Lewis-scale imaging description: Scattered atherosclerotic plaque Left lower extremity: Common femoral artery: 138 cm/sec, with biphasic flow. Deep femoral artery: 58 cm/sec, with biphasic flow. Proximal superficial femoral artery: 86 cm/sec, with biphasic flow. Mid superficial femoral artery: 121 cm/sec, with biphasic flow. Distal superficial femoral artery: 91 cm/sec, with biphasic flow. Popliteal artery: 73 cm/sec, with biphasic flow. Posterior tibial artery: 50 cm/sec, with biphasic flow. Anterior tibial artery/dorsalis pedis: 78/56 cm/sec, with biphasic flow. Lewis-scale imaging description: Scattered atherosclerotic plaque CIRA Right brachial: 170 mmHg Right ankle: 145 mmHg Right ankle brachial index (CIRA): 0.82 Left brachial: ): 172mmHg Left ankle: ): 142mmHg Left ankle brachial index (CIRA): 0.80 Healing potential: Ankle pressures >55 mm Hg in non-diabetics and >80 mm Hg in diabetics are likely to achieve primary h ealing of ischemic foot ulcers. Toe pressures >30 mm Hg are likely to achieve primary healing of ischemic foot ulcers, toe or transme tatarsal amputations. IMPRESSION: 1. Right lower extremity: -Resting CIRA is mildly reduced at 0.82. -Multiphasic waveforms of the arterial vasculature with no velocity shift to suggest a hemodynamicall y significant stenosis. -Elevated velocity in the common femoral artery of 208 cm/S suggestive of a less than 50% stenosis. 2. Left lower extremity: -Resting CIRA is mildly reduced at 0.8. -Multiphasic waveforms of the arterial vasculature with no velocity shift to suggest a hemodynamicall y significant stenosis. IMPRESSION: Multiphasic waveforms in the bilateral lower extremity arterial Reviewed by: Denisha Gutierrez MD on 06/09/2023 8:25 PM PST Approved by: Denisha Gutierrez MD on 06/09/2023 8:25 PM PST Station ID: [id number]
== END 2023-06-06 12:33 | disposition home or self-care (01) ==
LOC: DI 12:32
DX: I73.9 Peripheral vascular disease, unspecified (principal); I70.1 Atherosclerosis of renal artery
CPT/HCPCS: 93922; 93925

== ENCOUNTER 2023-06-06 13:00 | Outpatient (CLI) | payer MEDICARE ==
--- NOTE | 2023-06-07 12:11 | Ultrasound Report ---
PROCEDURE: Duplex Aorta Complete INDICATIONS: PAD, CLAUDICATION TECHNIQUE: Arterial duplex of the aorta and bilateral common iliacs, external iliac and common femora l arteries. COMPARISON: Bilateral lower extremity arterial duplex on March 13, 2022. FINDINGS: Abdominal aorta: Proximal: : 58 cm/sec Mid: : 83 cm/sec Distal: : 66 cm/sec Right lower extremity: Common iliac artery (proximal): 127 cm/sec, with biphasic flow. Common iliac artery (proximal): 125 cm/sec, with biphasic flow. External iliac artery (proximal): 132 cm/sec, with biphasic flow. External iliac artery (distal): 177 cm/sec, with biphasic flow. Common femoral artery: 145 cm/sec, with biphasic flow. Greyscale findings: Patent external iliac artery stent. Multiphasic waveforms with scattered extensiv e atherosclerotic plaque. Left lower extremity: Common iliac artery (proximal): 112 cm/sec, with biphasic flow. Common iliac artery (proximal): 105 cm/sec, with biphasic flow. External iliac artery (proximal): 121 cm/sec, with biphasic flow. External iliac artery (distal): 166 cm/sec, with biphasic flow. Common femoral artery: 169 cm/sec, with biphasic flow. Greyscale findings: Patent external iliac artery stent. Multiphasic waveforms with scattered extensiv e atherosclerotic plaque. IMPRESSION: 1.Multiphasic waveforms of the aortobiiliac vasculature with no velocity shift to suggest a hemodynam ically significant stenosis. 2.Patent bilateral external iliac artery stents. Reviewed by: Denisha Gutierrez MD on 06/07/2023 12:10 PM PST Approved by: Denisha Gutierrez MD on 06/07/2023 12:10 PM PST Station ID: [id number]
== END 2023-06-06 23:59 | disposition home or self-care (01) ==
LOC: DI 13:00
PROVIDERS: ATTEND Surgery Vascular Surgery
DX: I73.9 Peripheral vascular disease, unspecified (principal); I70.1 Atherosclerosis of renal artery
CPT/HCPCS: 93978

== ENCOUNTER 2023-06-23 19:28 | Inpatient (IN) | payer MEDICARE ==
--- NOTE | 2023-06-23 20:32 | XRAY Report ---
PROCEDURE: Chest 1V INDICATIONS: Chest pain TECHNIQUE: One view of the chest was acquired. COMPARISON: Lung cancer screening chest CT 02/08/2022. FINDINGS: Surgical changes and devices: None. Lungs and pleura: No pleural effusions or pneumothorax. Lungs are clear. Mediastinum: Mediastinal contours appear normal. Aortic arch atherosclerotic calcifications. Heart s ize is normal. Bones and chest wall: No suspicious bony lesions. Overlying soft tissues appear unremarkable. IMPRESSION: No acute cardiopulmonary process. Reviewed by: Jeremy Terrazas MD on 06/23/2023 8:31 PM PST Approved by: Jeremy Terrazas MD on 06/23/2023 8:31 PM PST Station ID: [id number]
--- NOTE | 2023-06-23 20:46 | ED Physician Documentation ---
PD HPI DYSPNEA - Stated complaint Stated Complaint: SOA/FEVER - Chief complaint Chief Complaint: Resp - History obtained from History obtained from: Patient - Additional information Additional information: HPI from patient. Patient complains of 5 to 6 days of dyspnea, worse with exertion. This has been associated with a nonproductive cough. She does not offer chest pain is her chief complaint, but in review of systems, she says she has been experiencing left shoulder pain radiating to the left upper back over the past several days, as well. She is noncommittal when asked specifically if she is having any anterior chest pain. She denies leg swelling.Subjective fevers at home; patient says she feels like she has been having fevers, but has not measured her temperature. She denies sweats, but has been having episodes of shaking chills. Also on review of systems, patient notes mildly painful lesions of her upper and lower lips that developed a few days ago. Review of Systems Constitutional: reports: Chills. denies: Fatigue, Sweats Throat: denies: Sore throat Cardiac: denies: Palpitations, Pedal edema, Calf pain Respiratory: reports: Dyspnea, Cough. denies: Hemoptysis PD PAST MEDICAL HISTORY - Past Medical History Past Medical History: Yes Cardiovascular: Hypertension, High cholesterol - Past Surgical History Past Surgical History: Yes General: Colonoscopy Cardiovascular: Other - Present Medications Home Medications: Ambulatory Orders Medication Instructions Recorded Confirmed Clopidogrel Bisulfate [Plavix] 75 mg PO DAILY 06/24/23 06/24/23 Losartan [Cozaar] 50 mg PO BID 06/24/23 06/24/23 Metoprolol Succinate [Toprol Xl] 50 mg PO BID 06/24/23 06/24/23 Pantoprazole [Protonix] 40 mg PO BID 06/24/23 06/24/23 Rosuvastatin Calcium 20 mg PO HS 06/24/23 06/24/23 amLODIPine [Norvasc] 10 mg PO DAILY 06/24/23 06/24/23 - Allergies Allergies/Adverse Reactions: Allergies Allergy/AdvReac Type Severity Reaction Status Date / Time No Known Drug Allergies Allergy Verified 06/23/23 19:56 - Social History Does the pt smoke?: No Smoking Status: Never smoker PD ED PE NORMAL - Vitals Vital signs reviewed: Yes - General General: Alert and oriented X 3, No acute distress, Well developed/nourished, Other (NAD ) - HEENT HEENT: Other (there are a few scabbed-over lesions of lower>upper lips on ant but no mucosal/intraoral lesions ) - Neck Neck: Supple, no meningeal sign - Cardiac Cardiac: RRR, No murmur - Respiratory Respiratory: No respiratory distress, Clear bilaterally - Abdomen Abdomen: Soft, Non tender - Extremities Extremities: No edema Results - Vitals Vitals: Vital Signs - 24 hr 06/23/23 06/23/23 06/23/23 20:56 21:00 21:07 Temperature Heart Rate 92 60 59 L Respiratory 19 18 17 Rate Blood Pressure 122/67 112/77 O2 Saturation 90 L 88 L 93 If not protocol 2 : Oxygen Flow, liters/minute 06/23/23 06/23/23 06/23/23 21:30 22:59 23:22 Temperature 36.6 C Heart Rate 60 59 L 60 Respiratory 16 19 Rate Blood Pressure 116/42 L O2 Saturation 99 94 If not protocol 2 2 : Oxygen Flow, liters/minute 06/23/23 06/23/23 06/23/23 23:40 23:49 23:50 Temperature Heart Rate 63 Respiratory 12 Rate Blood Pressure O2 Saturation 94 89 L If not protocol 2 : Oxygen Flow, liters/minute 06/24/23 06/24/23 06/24/23 00:19 01:04 02:50 Temperature Heart Rate 65 65 64 Respiratory 14 17 16 Rate Blood Pressure 117/46 L O2 Saturation 94 91 L If not protocol 2 2 3 : Oxygen Flow, liters/minute 06/24/23 06/24/23 06/24/23 03:36 04:00 04:50 Temperature 36 C L Heart Rate 65 63 61 Respiratory 18 18 17 Rate Blood Pressure 120/54 L 103/44 L O2 Saturation 92 91 L 89 L If not protocol 2 2 2 : Oxygen Flow, liters/minute 06/24/23 06/24/23 06/24/23 06:11 07:00 10:49 Temperature Heart Rate 59 L 59 L 65 Respiratory 17 15 22 Rate Blood Pressure 115/45 L 111/45 L 128/52 L O2 Saturation 90 L 93 100 If not protocol 2 2 2 : Oxygen Flow, liters/minute 06/24/23 12:00 Temperature Heart Rate 62 Respiratory 18 Rate Blood Pressure 134/51 H O2 Saturation 97 If not protocol 2 : Oxygen Flow, liters/minute Oxygen O2 Source Nasal cannula Oxygen Flow Rate 2 - EKG (time done) No standard instances EKG releavant findings:: EKG personally interpreted by author of this note. Relevant findings are: Rate: Rate (enter#) (60) Rhythm: NSR [place]: Normal Intervals: Normal CT QRS: Normal Ischemia: Normal ST segments, ST depression (minimal ST depressions in V3-V6), T wave inversion, Other (diffuse biphasic and inverted T waves) Compare to prior EKG: Old EKG unavailable - Labs Labs: Laboratory Tests 06/23/23 06/23/23 06/23/23 20:50 20:50 20:50 WBC 10.8 RBC 4.42 Hgb 13.5 Hct 41.0 MCV 92.8 MCH 30.5 MCHC 32.9 RDW 12.3 Plt Count 188 MPV 10.6 Neut # (Auto) Not Reportable Lymph # (Auto) Not Reportable [place] # (Auto) Not Reportable Eos # (Auto) Not Reportable Baso # (Auto) Not Reportable Absolute Nucleated RBC Not Reportable Total Counted 100 Band Neuts % (Manual) 3 Reactive Lymphs % (Man) 1 Abnorm Lymph % (Manual) 0 Nucleated RBC % Not Reportable Neutrophils # (Manual) 7.2 H Lymphocytes # (Manual) 3.2 Monocytes # (Manual) 0.3 Eosinophils # (Manual) 0.0 Basophils # (Manual) 0.0 Differential Comment MANUAL DIFFERENTIAL Platelet Estimate NORMAL (130-450,000) Platelet Morphology NORMAL APPEARANCE RBC Morph Micro Appear NORMAL APPEARANCE Sodium 136 Potassium 3.4 L Chloride 97 L Carbon Dioxide 24 Anion Gap 15.0 H BUN 45 H Creatinine 2.1 H Estimated GFR (MDRD) 23 L Glucose 115 H Calcium 9.1 Total Bilirubin 0.7 AST 21 ALT 9 L Alkaline Phosphatase 58 Troponin I High Sens 27.8 H* B-Natriuretic Peptide 104 H Total Protein 7.9 Albumin 4.1 Globulin 3.8 Albumin/Globulin Ratio 1.1 Lipase 45 Nasal Adenovirus (PCR) Nasal B. parapertussis DNA (PCR) Nasal Coronavir 229E PCR Nasal Coronavir HKU1 PCR Nasal Coronavir NL63 PCR Nasal Coronavir OC43 PCR Nasal Enterovir/Rhinovir PCR Nasal Influ A H1 2009 PCR Nasal Influenza B PCR Nasal Influenza A PCR Nasal Parainfluen 1 PCR Nasal Parainfluen 2 PCR Nasal Parainfluen 3 PCR Nasal Parainfluen 4 PCR Nasal RSV (PCR) Nasal B.pertussis DNA PCR Nasal C.pneumoniae (PCR) [place] Human Metapneumo PCR Nasal M.pneumoniae (PCR) Nasal SARS-CoV-2 (PCR) 06/23/23 06/24/23 21:00 00:10 WBC RBC Hgb Hct MCV MCH MCHC RDW Plt Count MPV Neut # (Auto) Lymph # (Auto) [place] # (Auto) Eos # (Auto) Baso # (Auto) Absolute Nucleated RBC Total Counted Band Neuts % (Manual) Reactive Lymphs % (Man) Abnorm Lymph % (Manual) Nucleated RBC % Neutrophils # (Manual) Lymphocytes # (Manual) Monocytes # (Manual) Eosinophils # (Manual) Basophils # (Manual) Differential Comment Platelet Estimate Platelet Morphology RBC Morph Micro Appear Sodium 136 Potassium 3.5 Chloride 101 Carbon Dioxide 18 L Anion Gap 17.0 H BUN 43 H Creatinine 1.9 H Estimated GFR (MDRD) 26 L Glucose 120 H Calcium 8.1 L Total Bilirubin AST ALT Alkaline Phosphatase Troponin I High Sens 21.7 H* B-Natriuretic Peptide Total Protein Albumin Globulin Albumin/Globulin Ratio Lipase Nasal Adenovirus (PCR) NOT DETECTED Nasal B. parapertussis DNA (PCR) NOT DETECTED Nasal Coronavir 229E PCR NOT DETECTED Nasal Coronavir HKU1 PCR NOT DETECTED Nasal Coronavir NL63 PCR NOT DETECTED Nasal Coronavir OC43 PCR NOT DETECTED Nasal Enterovir/Rhinovir PCR NOT DETECTED Nasal Influ A H1 2009 PCR DETECTED A Nasal Influenza B PCR NOT DETECTED Nasal Influenza A PCR NOT DETECTED Nasal Parainfluen 1 PCR NOT DETECTED Nasal Parainfluen 2 PCR NOT DETECTED Nasal Parainfluen 3 PCR NOT DETECTED Nasal Parainfluen 4 PCR NOT DETECTED Nasal RSV (PCR) NOT DETECTED Nasal B.pertussis DNA PCR NOT DETECTED Nasal C.pneumoniae (PCR) NOT DETECTED [place] Human Metapneumo PCR NOT DETECTED Nasal M.pneumoniae (PCR) NOT DETECTED Nasal SARS-CoV-2 (PCR) DETECTED A - Rads (name of study) chest xray Relevant Findings:: Prelim report reviewed, See rad report PD Medical Decision Making - ED course Complexity details: reviewed results, re-evaluated patient, considered differential, d/w patient ED course: Respiratory panel is positive for both COVID and influenza A. She is in NAD at rest but exhibiting low pulse ox readings without known pulmonary diagnoses such ad COPD or asthma. She is given duoneb and 10mg IV decadron without significant improvement. Her pulse ox eventually worsened at rest to 88-90 percent with increasing c/o dyspnea and thus 2 L/min NC oxygen placed with improvement to lower-mid 90s pulse ox. given 2 puffs off albuterol MDI , again without improvement in pulse ox nor c/o dyspnea (although continued to not be in obvious respiratory distress). I had given her 30mg tamiflu (renal-adjusted dose for creatinine clearance of 10-30 range) and not given paxlovid due to potential interactions with several of her meds including her clopidogrel (which she takes due to BLE stents). She was eventually given another (albuterol) neb without significant change; her supplemental oxygen had to be increased to 3 L due to <90% pulse ox readings at times. Initial plans (earlier in stay) for d/c home were rescinded due to ongoing hypoxia, and a "road test" did not go well, with starting pulse ox 88% on RA, desaturating to 86% with increasin c/o dyspnea and noticeable tachypnea and dyspnea, as well. She is put back on supplemental oxygen with improvement in pulse ox and symptoms. The prolonged course of ED stay was significantly influenced by lack of beds available at [facility]. She is held in ED in anticipation of bed availability later in the morning. Care of patient turned over to at end of my shift. Blood tests are notable for elevated BUN and creatinine, with modest improvement after IV fluids. Her baseline, from previous results, is essentially normal kidney function tests. Mildly elevated hs-cTn but decreased on redraw a few hours later Departure - Departure Disposition: 66 [facility] DC/Xfer Clinical Impression: COVID, Influenza A, Hypoxia Condition: Good Discharge Date/Time: 06/24/23 14:31
[2023-06-23 21:07] LABS: BASOPHILS % (AUTO) 0.2 %; EOSINOPHILS % (AUTO) 0.1 %; HGB - HEMOGLOBIN 13.5 g/dL (12.0-16.0); LYMPHOCYTES % (AUTO) 22.4 %; MEAN CORPUSCULAR HEMOGLOBIN 30.5 pg (27.0-31.0); MEAN CORPUSCULAR HGB CONC 32.9 g/dL (32.0-36.0); MEAN CORPUSCULAR VOLUME 92.8 fL (81.0-99.0); MEAN PLATELET VOLUME 10.6 fL (7.9-10.8); MONOCYTES % (AUTO) 4.9 %; NEUTROPHILS % (AUTO) 72.1 %; PLT - PLATELET COUNT 188 10^3/uL (130-450); RED BLOOD COUNT 4.42 10^6/uL (4.20-5.40); RED CELL DISTRIBUTION WIDTH 12.3 % (12.0-15.0); WHITE BLOOD COUNT 10.8 x10^3/uL (4.8-10.8)
[2023-06-23 21:13] LABS: ABNORMAL LYMPHS % (MANUAL) 0 %
[2023-06-23] MEDS ORDERED: IPRATROPIUM/ALBUTEROL 3 ML NEB INH STA (21:19)
[2023-06-23] MEDS ORDERED: DEXAMETHASONE 10 MG/ML VIAL IVP STA (21:21)
[2023-06-23 21:45] LABS: TROPONIN I HIGH SENSITIVITY 27.8 ng/L (2.3-14.8)
[2023-06-23 21:48] LABS: BAND NEUTROPHILS % (MANUAL) 3 %; LYMPHOCYTES # (MANUAL) 3.2 10^3/uL (1.5-3.5); LYMPHOCYTES % (MANUAL) 29 %; MONOCYTES # (MANUAL) 0.3 10^3/uL (0.0-1.0); NEUTROPHILS # (MANUAL) 7.2 10^3/uL (1.5-6.6); PLATELET MORPHOLOGY NORMAL APPEARANCE (NORMAL); RBC MORPHOLOGY (MULTIPLE) NORMAL APPEARANCE (NORMAL); REACTIVE LYMPHS % (MANUAL) 1 %
[2023-06-23 21:49] LABS: DIFFERENTIAL COMMENT MANUAL DIFFERENTIAL; PLATELET ESTIMATE, MANUAL NORMAL (130-450,000) (NORMAL)
[2023-06-23 21:57] LABS: ALBUMIN 4.1 g/dL (3.2-5.5); ALBUMIN/GLOBULIN RATIO 1.1 (1.0-2.2); BILIRUBIN,TOTAL 0.7 mg/dL (0.2-1.0); CALCIUM 9.1 mg/dL (8.5-10.3); CREATININE 2.1 mg/dL (0.6-1.3); POTASSIUM 3.4 mmol/L (3.5-4.5); TOTAL PROTEIN 7.9 g/dL (6.4-8.9)
[2023-06-23 22:28] LABS: CORONAVIRUS 229E-RESP PCR NOT DETECTED; CORONAVIRUS HKU1-RESP PCR NOT DETECTED; CORONAVIRUS NL63-RESP PCR NOT DETECTED; CORONAVIRUS OC43-RESP PCR NOT DETECTED; HUMAN METAPNEUMOVIRUS NOT DETECTED; INFLUENZA A- RESP PCR PANEL NOT DETECTED; RHINOVIRUS/ENTEROVIRUS NOT DETECTED; SARS-CoV-2 -RESP PCR PANEL DETECTED
[2023-06-23 22:29] LABS: B. PARAPERTUSSIS- RESP PCR PAN NOT DETECTED; B. PERTUSSIS- RESP PCR PANEL NOT DETECTED; C. PNEUMONIAE- RESP PCR PANEL NOT DETECTED; INFLUENZA A H1 2009- RESP PCR DETECTED; INFLUENZA B - RESP PCR PANEL NOT DETECTED; M. PNEUMONIAE- RESP PCR PANEL NOT DETECTED; PARAINFLUENZA VIRUS 1 NOT DETECTED; PARAINFLUENZA VIRUS 2 NOT DETECTED; PARAINFLUENZA VIRUS 3 NOT DETECTED; PARAINFLUENZA VIRUS 4 NOT DETECTED; RSV- RESP PCR PANEL NOT DETECTED
[2023-06-23] MEDS ORDERED: SODIUM CHLORIDE 0.9% 1,000 ML IV STA (22:32)
[2023-06-23] MEDS ORDERED: ALBUTEROL 1 PUFF INH STA (23:26)
[2023-06-23] MEDS ORDERED: OSELTAMIVIR 75 MG CAPSULE PO STA (23:26)
[2023-06-23] MEDS ORDERED: OSELTAMIVIR 30 MG CAPSULE PO STA (23:30)
[2023-06-24 00:44] LABS: TROPONIN I HIGH SENSITIVITY 21.7 ng/L (2.3-14.8)
[2023-06-24 00:55] LABS: CALCIUM 8.1 mg/dL (8.5-10.3); CREATININE 1.9 mg/dL (0.6-1.3); POTASSIUM 3.5 mmol/L (3.5-4.5)
[2023-06-24] MEDS ORDERED: SODIUM CHLORIDE 0.9% 1,000 ML IV STA (01:08)
[2023-06-24] MEDS ORDERED: ALBUTEROL NEB 2.5 MG/3 ML INH STA (01:58)
[2023-06-24] MEDS ORDERED: ONDANSETRON 4 MG/2 ML VIAL IVP PRN (12:03)
[2023-06-24] MEDS ORDERED: ONDANSETRON ODT 4 MG TABLET TL PRN (12:03)
[2023-06-24] MEDS ORDERED: oxyCODONE 5 MG TABLET PO PRN (12:03)
[2023-06-24] MEDS ORDERED: SODIUM CHLORIDE FLUSH 0.9% 10 ML SYRINGE IVP PRN (12:03)
[2023-06-24] MEDS ORDERED: NON FORMULARY MED (Remdesivir 200 MG) IVP ONE (12:07)
[2023-06-24] MEDS ORDERED: REMDESIVIR 200 MG in SODIUM CHLORIDE 0.9% 250 ML IV SCH (13:00)
[2023-06-24] MEDS: OSELTAMIVIR 30 MG CAPSULE PO SCH (13:23)
[2023-06-24] MEDS: DEXAMETHASONE 10 MG/ML VIAL IVP SCH (13:23)
[2023-06-24] MEDS: ENOXAPARIN 30 MG/0.3 ML SYRINGE SUBQ SCH (13:23)
--- NOTE | 2023-06-24 14:52 | ED Physician Documentation ---
ED Addendum - Addendum Addendum: 06/24/23 Patient signed out to me this morning by Dr. Bonilla. She is awaiting admission for hypoxia related to influenza A and COVID. On evaluation this morning she is eating without any significant complaints. She does feel short of breath when she is ambulating to the bathroom. She does appear to be maintaining her sats on oxygen via nasal cannula. Discussed with Dr. Cloud after morning meeting and she will admit the patient for further management. Departure - Departure Disposition: 66 [facility] DC/Xfer Clinical Impression: COVID, Influenza A, Hypoxia Condition: Good Discharge Date/Time: 06/24/23 14:31
--- NOTE | 2023-06-24 15:18 | HISTORY & PHYSICAL EXAMINATION ---
Chief Complaint - Chief Complaint Chief Complaint: Shortness of breath/fever History of Present Illness - Admitted From Admitted From:: [facility] - History Obtained From Records Reviewed: [facility]EL [facility] records History obtained from: chart review, patient - History of Present Illness HPI Comment/Other: Betty Hung is a 72 yo F with a PMHx of COPD, peripheral vascular disease, renal artery stenosis, T2DM, HTN and HLD who presented to [facility] ED yesterday after dyspnea, worse with exertion x 6 days. Admits nonproductive cough, left shoulder pain radiating to upper back, subjective fever, shaking chills. EKG was done and revealed normal sinus rhythm, minimal ST depressions in v3-v6, T wave inversion, and diffuse biphasic and inverted T waves. WBC was 10.8, H&H WNL, AG of 15, BUN 45, creatinine 2.1. She is influenza A and COVID-19 positive. Upon admission to the med surg unit, her temperature was 36.4 C, SBP ranging between 100s-130s, and DBP 40s-70s, HR in 60s, and RR 14. O2 was 99% on 2 L nasal cannula. She is resting calmly in bed watching TV on her phone. She reports she started feeling poorly 7 days ago, with shortness of breath, fever, chills, weakness, productive cough, and a recent episode of chest pain that prompted her to visit the ER. She was concerned because her mother of an ID when she was 47. She says she has had 4 episodes of chest pain in her life, all of which resolved spontaneously. She reports she feels "40% better" today compared to when she arrived, denies any physical pain, shortness of breath, or current chest pain. She notes diarrhea x4 days. No N/V, abdominal pain. She lives alone in [place] and is able to complete all her ADLs independently. Retired after working for the [employer] for 30 years. She quit tobacco use 10 years ago, used to smoke 1/2-1 ppd for 40 years. Denies alcohol or substance use, states never used. She said cold sores on her mouth appeared 4 days ago, applies topical emollient to help. She has been eating and drinking water OK. PCP is Blanca Hernandez in [place]. She reports taking medication for her cholesterol and for her high blood pressure, though does not recall the names of these medications. History - Past Medical History Cardiovascular: reports: Hypertension, High cholesterol, Peripheral Vascular Disease, Other (renal artery stenosis) Respiratory: reports: COPD Endocrine/Autoimmune: reports: Type 2 diabetes AUDIT MGR: reports: Other (ovarian mass 2019) : reports: Renal insuffiency (chronic) Musculoskeletal: reports: Osteoarthritis (L Hip primary osteoarthritis 2019, R hip osteoarthritis 2021), Chronic back pain, Other (cervical spine stenosis, spinal stenosis of lumbar region) MRSA Hx?: No - Past Surgical History General: reports: Colonoscopy - Family & Social History Family History: Mother: ( at age 48 from ID), ID, Father: Dece ased, Alzheimer's Disease, Sister: , Cancer (Sister had colon cancer), Diabetes, Type 2 Family History Comment/Other: Reports diabetes in many family members, does not specify further Living arrangement: At home Living Situation: Alone Social History Notes: Does not have children. - Substance History Use: Uses substance without health or social issues: NONE Tobacco Details: Cigarettes (Former smoker, quit 10 years ago. Smoked 1/2-1 ppd for 20 years. ) Meds/Allgy - Home Medications Home Medications: Ambulatory Orders Medication Instructions Recorded Confirmed Clopidogrel Bisulfate [Plavix] 75 mg PO DAILY 06/24/23 06/24/23 Losartan [Cozaar] 50 mg PO BID 06/24/23 06/24/23 Metoprolol Succinate [Toprol Xl] 50 mg PO BID 06/24/23 06/24/23 Pantoprazole [Protonix] 40 mg PO BID 06/24/23 06/24/23 Rosuvastatin Calcium 20 mg PO HS 06/24/23 06/24/23 amLODIPine [Norvasc] 10 mg PO DAILY 06/24/23 06/24/23 - Allergies Allergies/Adverse Reactions: Allergies Allergy/AdvReac Type Severity Reaction Status Date / Time No Known Drug Allergies Allergy Verified 06/23/23 19:56 Review of Systems - Constitutional Constitutional: reports: Fatigue, Fever, Chills, Malaise, Weakness, Other (No unintentional weight changes) - Eyes Eyes: reports: Corrective lenses. denies: Pain, Vision loss - Ears, Nose & Throat Ears, Nose & Throat: reports: Mouth lesions. denies: Ear pain, Nasal pain, Nasal discharge, Nasal congestion, Postnasal drainage, Sore throat, Hoarseness - Cardiovascular Cariovascular: reports: Palpitations (intermittently, not currently.), Chest pain, Exertional dyspnea. denies: Edema, Lightheadedness, Syncope - Respiratory Respiratory: reports: Cough, SOB at rest, SOB with exertion. denies: Sputum production, Wheezing, Hemoptysis - Gastrointestinal Gastrointestinal: reports: Diarrhea. denies: Abdominal pain, Abdominal distention, Constipation, Rectal bleeding, Black stools, Bloody stools, Nausea, Vomiting, Bile emesis, Phill blood emesis, Coffee grounds emesis, Bloating - Genitourinary Genitourinary: denies: Dysuria, Frequency, Urgency, Hematuria, Incontinence - Musculoskeletal Musculoskeletal: denies: Muscle pain, Back pain - Integumentary Integumentary: reports: Lesions (Lesions around her mouth). denies: Rash, Pruritis, Dryness - Neurological Neurological: reports: General weakness. denies: Focal weakness, Headache, Dizziness, Numbness, Seizures, Incoordination, Slurred speech - Psychiatric Psychiatric: denies: Delusions, Hallucinations - Endocrine Endocrine: denies: Polyuria, Polydypsia - Hematologic/Lymphatic Hematologic/Lymphatic: denies: Bruising, Petechiae, Lymphadenopathy Prior Level of Functionality: She is able to ambulate and complete ADLs independently. Exam - Vital Signs Reviewed Vital Signs: Yes Vital Signs: Vital Signs x48h Temp Pulse Pulse Resp BP BP Pulse Ox 06/24/23 14:23 36.4 C L 63 14 160/62 H 99 06/24/23 14:05 06/24/23 12:00 62 18 134/51 H 97 06/24/23 10:49 65 22 128/52 L 100 O2 Flow Rate 06/24/23 14:23 2 06/24/23 14:05 2 06/24/23 12:00 2 06/24/23 10:49 2 - Physical Exam General Appearance: positive: No acute distress, Alert, Other (Pleasant, well groomed patient resting comfortably in hospital bed.) Eyes Bilateral: positive: Normal inspection, Other (corrective lenses in place) ENT: positive: Oral lesions (Crusted lesions on upper and lower lips), Dry mucous membranes Neck: positive: Nml inspection Respiratory: positive: Chest non-tender, No respiratory distress, Breath sounds nml Cardiovascular: positive: No murmur, No gallop, Bradycardia Peripheral Pulses: positive: 2+ Abdomen: positive: Non-tender, No organomegaly, No distention. negative: Guarding, Rebound, Mass Back: positive: Nml inspection Skin: positive: Warm, Dry, Other (ecchymosis on L arm) Extremities: positive: Non-tender, Nml appearance, No pedal edema Neurologic/Psychiatric: positive: Oriented x3, Mood/affect nml. negative: Facial droop, Slurred/abnml speech, Depressed mood/affect Conclusion/Plan - Problem List (1) Acute respiratory failure with hypoxia Conclusion/Plan: Secondary to COVID-19 and influenza infection. Likely exacerbated by COPD. She is currently on 2 L nasal cannula. CXR yesterday was reassuring there is not any acute cardiopulmonary process. Upon examination today she is not in respiratory distress. Her AG is elevated, unclear of etiology, will continue to monitor. Plan - continue supplemental oxygen - start oseltamivir and remdesivir - continue home medications as appropriate (2) Influenza A Conclusion/Plan: Influenza A positive. Plan: - Continue tamiflu as above (3) COVID Conclusion/Plan: COVID-19 positive on admission Plan - Remdesivir as above (4) COPD (chronic obstructive pulmonary disease) Conclusion/Plan: Pulmonary function test in August 2016 revealed moderately reduced FEV1, COPD with underlying emphysema. Patient did not report inhalers used at home, will await pharmacy reconciliation and continue home medications as appropriate. Plan: -Continue supplemental oxygen (5) Acute kidney injury Conclusion/Plan: Likely secondary to viral infection. Patient has a history of renal artery stenosis and chronic renal insufficiency. His creatinine upon admission was 2.1, BUN was 45. Baseline creatinine ranges 0.8-1.0. To encourage hydration and continue to monitor. Plan: - Encourage PO hydration - daily chemistry (6) Hypertension Conclusion/Plan: Most recent readings 160/62 and 151/57. Unclear if she has taken her home hypertension medication today. To resume home medications when reconciled if appropriate. (7) Type 2 diabetes mellitus Conclusion/Plan: Does not take daily medications for this, last A1c was 6.6. Glucose upon admission was 115, it appears she is well controlled on diet. - Lab Results Fish Bones: 06/23/23 20:50 06/24/23 00:10
--- NOTE | 2023-06-24 16:50 | PHARMACY PROGRESS NOTE ---
- Best Possible Medication History Admit Date and Time: 06/24/23 1203 Processed by: Pharmacy Medication History completed: Yes Patient Interview: Pt unable to participate Secondary Source(s): Insurance records As the person ultimately responsible for medication therapy, providers are able to order a medication from an existing home medication list in [facility] via the "Reconcile Routine" prior to Confirmation of that medication by windows support engineer. Such practice is discouraged except when the physician, in their clinical judgment, deems that a medical need exists for a medication without regard to previous use.
[2023-06-24] MEDS: SODIUM CHLORIDE FLUSH 0.9% 10 ML SYRINGE IVP SCH (17:21)
[2023-06-25] MEDS: SODIUM CHLORIDE FLUSH 0.9% 10 ML SYRINGE IVP SCH ×3 (01:30→16:50)
--- NOTE | 2023-06-25 07:34 | PROVIDER PROGRESS NOTE ---
Subjective - Prog Note Date Prog Note Date: 06/25/23 Prog Note Time: 07:32 - Subjective Pt reports feeling: Improved Subjective: Patient is sitting up in hospital bed, nasal cannula in place, watching television on her phone. She reports she is feeling "55%" of her baseline today. Denies physical pain, no shortness of breath, chest pain, palpitations. Still coughing intermittently. She has been drinking lots of tea and eating well. She has not had a bowel movement since before admission. Current Medications - Current Medications Current Medications: Active Medications Acetaminophen (Acetaminophen 325 Mg Tablet) 650 mg PO Q4HR PRN PRN Reason: Pain 1 to 4, or Fever Dexamethasone Sodium Phosphate (Dexamethasone 10 Mg/Ml Vial) 6 mg IVP DAILY [facility] Stop: 07/02/23 09:01 Last Admin: 06/24/23 13:23 Dose: 6 mg Enoxaparin Sodium (Enoxaparin 30 Mg/0.3 Ml Syringe) 30 mg SUBQ DAILY [facility] Last Admin: 06/24/23 13:23 Dose: 30 mg Ondansetron HCl (Ondansetron Odt 4 Mg Tablet) 4 mg TL Q6HR PRN PRN Reason: Nausea / Vomiting Ondansetron HCl (Ondansetron 4 Mg/2 Ml Vial) 4 mg IVP Q6HR PRN PRN Reason: Nausea / Vomiting Oseltamivir Phosphate (Oseltamivir 30 Mg Capsule) 30 mg PO DAILY [facility] Stop: 07/01/23 09:01 Last Admin: 06/24/23 13:23 Dose: 30 mg Oxycodone HCl (Oxycodone 5 Mg Tablet) 5 mg PO Q4HR PRN PRN Reason: Pain 5 to 7 Sodium Chloride (Sodium Chloride Flush 0.9% 10 Ml Syringe) 10 ml IVP PRN PRN PRN Reason: NEEDED PER PROVIDER ORDERS Sodium Chloride (Sodium Chloride Flush 0.9% 10 Ml Syringe) 10 ml IVP 0100 ,0900,1700 [facility] Last Admin: 06/25/23 01:30 Dose: 10 ml Clopidogrel Bisulfate [Plavix] 75 mg PO DAILY 06/24/23 Losartan [Cozaar] 50 mg PO BID 06/24/23 Metoprolol Succinate [Toprol Xl] 50 mg PO BID 06/24/23 Pantoprazole [Protonix] 40 mg PO BID 06/24/23 Rosuvastatin Calcium 20 mg PO HS 06/24/23 amLODIPine [Norvasc] 10 mg PO DAILY 06/24/23 Objective - Vital Signs/Intake & Output Reviewed Vital Signs: Yes Vital Signs: Vital Signs x48h Temp Pulse Resp BP Pulse Ox O2 Flow Rate 06/25/23 05:30 36.6 C 763 H 18 93 3 06/25/23 01:29 36.7 C 68 18 133/57 H 93 3 Intake & Output: Intake & Output 06/22/23 06/23/23 06/24/23 06/25/23 23:59 23:59 23:59 23:59 Intake Total 732.6 1637.400 150 Balance 732.6 1637.400 150 - Objective General Appearance: positive: No acute distress, Alert, Other (Pleasant patient resting comfortably in hospital bed. Well nourished and well groomed.) Eyes Bilateral: positive: Normal inspection, No lid inflammation, Conjunctivae nml ENT: positive: Oral lesions (Several crusted lesions present on upper and lower lips.), Other (Nasal cannula in place. Patient coughing intermittently) Neck: positive: Nml inspection Respiratory: positive: Chest non-tender, No respiratory distress, Breath sounds nml Cardiovascular: positive: Regular rate & rhythm Abdomen: positive: Non-tender, No organomegaly, No distention. negative: Guarding, Rebound, Mass Skin: positive: Warm, Dry Extremities: positive: Non-tender, No pedal edema Neurologic/Psychiatric: positive: Oriented x3, Motor nml, Sensation nml, Mood/affect nml. negative: Facial droop, Slurred/abnml speech, Depressed mood/affect - Lab Results Fish Bones: 06/23/23 20:50 06/24/23 00:10 ABX Reporting Has patient been on IV antibiotics over the past 48 hours?: No Assessment/Plan - Problem List (1) Acute respiratory failure with hypoxia Impression: Secondary to COVID-19 and influenza infection. Likely exacerbated by COPD. 02 sat 92% 2 L supplemental oxygen. CXR 06/25 was reassuring there is not any acute cardiopulmonary process. Her troponin and BNP were mildly elevated on admission, this is likely secondary to viral infection. She denies chest pain today. She is not in respiratory distress. Her AG is elevated, unclear of etiology, will continue to monitor. Plan - continue isolation precautions - continue supplemental oxygen - continue oseltamivir and dexamethasone - intermittent CMP during hospitalization - Continue home pantoprazole (2) Influenza A Impression: Influenza A positive on admission. Isolation precautions to continue until 7 days of illness onset or until 24 hours after resolution of respiratory sx. She will continue oseltamivir until 07/01/23. Plan: - continue isolation precautions - continue tamiflu (3) COVID Impression: COVID-19 positive on admission. Isolation precautions can be discontinued after 10 days of symptom onset. Continue dexamethasone until 07/02/23. Plan: - continue isolation precautions - continue dexamethasone (4) COPD (chronic obstructive pulmonary disease) Impression: Pulmonary function test in August 2016 revealed moderately reduced FEV1, COPD with underlying emphysema. Patient does not use inhalers used at home or need supplemental oxygen. Continue to manage viral infections and hypoxia as above. Plan: -Continue supplemental oxygen (5) Acute kidney injury Impression: Likely secondary to viral infection. Patient has a history of renal artery stenosis and chronic renal insufficiency. His creatinine upon admission was 2.1, BUN was 45. Baseline creatinine ranges 0.8-1.0. To encourage hydration and continue to monitor. Patient has good PO fluid intake. Plan: - Encourage PO hydration - CMP tomorrow (6) Hypertension Impression: She has been hypertensive during admission, has not been taking home medications. To restart home BP medications. - continue home amlodipine, losartan, metoprolol (7) Type 2 diabetes mellitus Impression: Does not take daily medications for this, last A1c was 6.6. Glucose upon ad mission was 115, it appears she is well controlled on diet. (8) Dyslipidemia Impression: Will hold home rosuvastatin this admission. (9) Peripheral Arterial Disease with lower extremity bilateral claudication Impression: Continue home clopidogrel.
[2023-06-25] MEDS: DEXAMETHASONE 10 MG/ML VIAL IVP SCH (08:10)
[2023-06-25] MEDS: OSELTAMIVIR 30 MG CAPSULE PO SCH (08:10)
[2023-06-25] MEDS: ENOXAPARIN 30 MG/0.3 ML SYRINGE SUBQ SCH (08:11)
[2023-06-25] MEDS: polyethylene glycoL 3350 17 GM PACKET PO SCH (12:29)
[2023-06-25] MEDS: CHOLECALCIFEROL 25 MCG TABLET PO SCH (16:49)
[2023-06-25] MEDS: SODIUM CHLORIDE 0.9% 1,000 ML IV SCH (16:58)
[2023-06-25] MEDS: LOSARTAN 50 MG TABLET PO SCH (20:34)
[2023-06-25] MEDS: PANTOPRAZOLE 40 MG TABLET PO SCH (20:34)
[2023-06-25] MEDS: METOPROLOL SUCCINATE 50 MG TABLET PO SCH (20:34)
[2023-06-25] MEDS: guaiFENesin 600 MG TABLET PO SCH (20:34)
[2023-06-26] MEDS: SODIUM CHLORIDE FLUSH 0.9% 10 ML SYRINGE IVP SCH ×3 (00:21→16:41)
[2023-06-26] MEDS: SODIUM CHLORIDE 0.9% 1,000 ML IV SCH (04:36)
[2023-06-26 05:36] LABS: BASOPHILS % (AUTO) 0.1 %; HCT - HEMATOCRIT 38.8 % (37.0-47.0); HGB - HEMOGLOBIN 12.5 g/dL (12.0-16.0); LYMPHOCYTES # (AUTO) 0.9 10^3/uL (1.5-3.5); LYMPHOCYTES % (AUTO) 11.4 %; MEAN CORPUSCULAR HGB CONC 32.2 g/dL (32.0-36.0); MEAN CORPUSCULAR VOLUME 93.3 fL (81.0-99.0); MEAN PLATELET VOLUME 10.2 fL (7.9-10.8); MONOCYTES # (AUTO) 0.6 10^3/uL (0.0-1.0); MONOCYTES % (AUTO) 7.5 %; NEUTROPHILS # (AUTO) 6.4 10^3/uL (1.5-6.6); NEUTROPHILS % (AUTO) 80.4 %; PLT - PLATELET COUNT 218 10^3/uL (130-450); RED BLOOD COUNT 4.16 10^6/uL (4.20-5.40); RED CELL DISTRIBUTION WIDTH 12.3 % (12.0-15.0); WHITE BLOOD COUNT 7.9 x10^3/uL (4.8-10.8)
[2023-06-26 05:53] LABS: CALCIUM 8.3 mg/dL (8.5-10.3); POTASSIUM 3.4 mmol/L (3.5-4.5)
--- NOTE | 2023-06-26 08:07 | PROVIDER PROGRESS NOTE ---
Subjective - Prog Note Date Prog Note Date: 06/26/23 Prog Note Time: 08:02 - Subjective Pt reports feeling: Improved Subjective: Patient reports feeling better today, denies any physical pain. Denies chest pain, SOB, sputum production, hemoptysis, sore throat. She states she still has a cough that is bothering her, guaifenesin does not help much. Current Medications - Current Medications Current Medications: Active Medications Acetaminophen (Acetaminophen 325 Mg Tablet) 650 mg PO Q4HR PRN PRN Reason: Pain 1 to 4, or Fever Amlodipine Besylate (Amlodipine 5 Mg Tablet) 10 mg PO DAILY [facility] Cholecalciferol (Cholecalciferol 25 Mcg Tablet) 50 mcg PO DAILY [facility] Last Admin: 06/25/23 16:49 Dose: 50 mcg Clopidogrel Bisulfate (Clopidogrel 75 Mg Tablet) 75 mg PO DAILY [facility] Dexamethasone (Dexamethasone 4 Mg Tablet) 6 mg PO DAILY [facility] Stop: 07/02/23 09:01 Enoxaparin Sodium (Enoxaparin 30 Mg/0.3 Ml Syringe) 30 mg SUBQ DAILY [facility] Last Admin: 06/25/23 08:11 Dose: 30 mg Guaifenesin (Guaifenesin 600 Mg Tablet) 600 mg PO BID [facility] Last Admin: 06/25/23 20:34 Dose: 600 mg Sodium Chloride (Normal Saline 0.9%) 1,000 mls @ 83.333 mls/hr IV .Q12H [facility] Last Admin: 06/26/23 04:36 Dose: 83.333 mls/hr Remdesivir 100 mg/ Sodium (Chloride) 100 mls @ 200 mls/hr IV DAILY [facility] Stop: 06/29/23 09:29 Losartan Potassium (Losartan 50 Mg Tablet) 50 mg PO BID [facility] Last Admin: 06/25/23 20:34 Dose: 50 mg Metoprolol Succinate (Metoprolol Succinate 50 Mg Tablet) 50 mg PO BID [facility] Last Admin: 06/25/23 20:34 Dose: 50 mg Ondansetron HCl (Ondansetron Odt 4 Mg Tablet) 4 mg TL Q6HR PRN PRN Reason: Nausea / Vomiting Ondansetron HCl (Ondansetron 4 Mg/2 Ml Vial) 4 mg IVP Q6HR PRN PRN Reason: Nausea / Vomiting Oseltamivir Phosphate (Oseltamivir 30 Mg Capsule) 30 mg PO DAILY [facility] Stop: 07/01/23 09:01 Last Admin: 06/25/23 08:10 Dose: 30 mg Oxycodone HCl (Oxycodone 5 Mg Tablet) 5 mg PO Q4HR PRN PRN Reason: Pain 5 to 7 Pantoprazole Sodium (Pantoprazole 40 Mg Tablet) 40 mg PO BID [facility] Last Admin: 06/25/23 20:34 Dose: 40 mg Polyethylene Glycol (Polyethylene Glycol 3350 17 Gm Packet) 17 gm PO DAILY [facility] Last Admin: 06/25/23 12:29 Dose: 17 gm Sodium Chloride (Sodium Chloride Flush 0.9% 10 Ml Syringe) 10 ml IVP PRN PRN PRN Reason: NEEDED PER PROVIDER ORDERS Sodium Chloride (Sodium Chloride Flush 0.9% 10 Ml Syringe) 10 ml IVP 0100,0900,1700 [facility] Last Admin: 06/26/23 00:21 Dose: Not Given Clopidogrel Bisulfate [Plavix] 75 mg PO DAILY 06/24/23 Losartan [Cozaar] 50 mg PO BID 06/24/23 Metoprolol Succinate [Toprol Xl] 50 mg PO BID 06/24/23 Pantoprazole [Protonix] 40 mg PO BID 06/24/23 Rosuvastatin Calcium 20 mg PO HS 06/24/23 amLODIPine [Norvasc] 10 mg PO DAILY 06/24/23 Objective - Vital Signs/Intake & Output Reviewed Vital Signs: Yes Intake & Output: Intake & Output 06/23/23 06/24/23 06/25/23 06/26/23 23:59 23:59 23:59 23:59 Intake Total 732.6 1637.400 860 950 Balance 732.6 1637.400 860 950 - Objective General Appearance: positive: No acute distress, Alert Eyes Bilateral: positive: Normal inspection, No lid inflammation, Conjunctivae nml ENT: positive: Other (Nasal cannula in place, crusted lesion on upper and lower lips.) Neck: positive: Nml inspection Respiratory: positive: Chest non-tender, No respiratory distress, Breath sounds nml (Decreased breath sounds at the bases bilaterally.) Cardiovascular: positive: Regular rate & rhythm Abdomen: positive: Non-tender, No organomegaly, No distention. negative: Guarding, Rebound, Hepatomegaly, Splenomegaly, Mass Skin: positive: Warm, Dry Extremities: positive: Non-tender, Nml appearance, No pedal edema Neurologic/Psychiatric: positive: Oriented x3, Mood/affect nml - Lab Results Fish Bones: 06/26/23 05:12 06/26/23 05:12 Other Labs: Lab Results x24hrs 06/26/23 06/26/23 Range/Units 05:12 05:12 WBC 7.9 (4.8-10.8) x10^3/uL RBC 4.16 L (4.20-5.40) 10^6/uL Hgb 12.5 (12.0-16.0) g/dL Hct 38.8 (37.0-47.0) % MCV 93.3 (81.0-99.0) fL MCH 30.0 (27.0-31.0) pg MCHC 32.2 (32.0-36.0) g/dL RDW 12.3 (12.0-15.0) % Plt Count 218 (130-450) 10^3/uL MPV 10.2 (7.9-10.8) fL Neut # (Auto) 6.4 (1.5-6.6) 10^3/uL Lymph # (Auto) 0.9 L (1.5-3.5) 10^3/uL [place] # (Auto) 0.6 (0.0-1.0) 10^3/uL Eos # (Auto) 0.0 (0.0-0.7) 10^3/uL Baso # (Auto) 0.0 (0.0-0.1) 10^3/uL Absolute Nucleated RBC 0.00 x10^3/uL Nucleated RBC % 0.0 /100WBC Sodium 140 (135-145) mmol/L Potassium 3.4 L (3.5-4.5) mmol/L Chloride 108 (101-111) mmol/L Carbon Dioxide 25 (21-32) mmol/L Anion Gap 7.0 (6-13) BUN 29 H (6-20) mg/dL Creatinine 1.0 (0.6-1.3) mg/dL Estimated GFR (MDRD) 54 L (>89) Glucose 135 H (74-104) mg/dL Calcium 8.3 L (8.5-10.3) mg/dL ABX Reporting Has patient been on IV antibiotics over the past 48 hours?: No Assessment/Plan - Problem List (1) Acute respiratory failure with hypoxia Impression: Secondary to COVID-19 and influenza infection. Likely exacerbated by COPD. CXR 06/25 was reassuring there is not any acute cardiopulmonary process. Her troponin and BNP were mildly elevated on admission, this is likely secondary to viral infection. She denies chest pain today. She is not in respiratory distress. AG WNL today. She still has a cough, guaifenesin does not seem to help much. She is afebrile, O2 sat 94% 2 L supplemental oxygen. Today we trialled removal of oxygen, saturation came down to an average of 86% on RA with associated shortness of breath. When ambulating to restroom RN gave patient 1 L of O2 nasal canula on for activity. She had associated SOB and increased respirations with this, O2 saturation after ambulation was 76%. Patient recovered well after this trial. Plan - continue isolation precautions - continue supplemental oxygen - switch to robutussin for cough - continue oseltamivir, remdesivir and dexamethasone - daily BMP - Continue home pantoprazole (2) Influenza A Impression: Influenza A positive on admission. Isolation precautions to continue until 7 days of illness onset or until 24 hours after resolution of respiratory sx. She will continue oseltamivir until 07/01/23. Plan: - continue isolation precautions - continue tamiflu (3) COVID Impression: COVID-19 positive on admission. Isolation precautions can be discontinued after 10 days of symptom onset. Continue dexamethasone until 07/02/23. Plan: - continue isolation precautions - continue dexamethasone and remdesivir (4) COPD (chronic obstructive pulmonary disease) Impression: Pulmonary function test in August 2016 revealed moderately reduced FEV1, COPD with underlying emphysema. Patient does not use inhalers used at home or need supplemental oxygen. Continue to manage viral infections and hypoxia as above. Plan: -Continue supplemental oxygen (5) Hypokalemia Impression: 3.4 today, replete potassium (6) Acute kidney injury Impression: Resolved. Likely secondary to viral infection. Patient has a history of renal artery stenosis and chronic renal insufficiency. His creatinine upon admission was 2.1, BUN was 45. Baseline creatinine ranges 0.8-1.0. Today creatinine is 1.0 and BUN has decreased. (7) Hypertension Impression: She has been hypertensive during admission, she missed several days of her home hypertensive medications. - continue home amlodipine, losartan, metoprolol (8) Type 2 diabetes mellitus Impression: Does not take daily medications for this, last A1c was 6.6. Glucose upon admission was 115, it appears she is well controlled on diet. (9) Dyslipidemia Impression: Will hold home rosuvastatin this admission. (10) Peripheral Arterial Disease with lower extremity bilateral claudication Impression: Continue home clopidogrel.
[2023-06-26] MEDS ORDERED: SODIUM CHLORIDE 0.9% 100ML 100 ML IV ONE (08:18)
[2023-06-26] MEDS: polyethylene glycoL 3350 17 GM PACKET PO SCH (09:03)
[2023-06-26] MEDS: ENOXAPARIN 30 MG/0.3 ML SYRINGE SUBQ SCH (09:03)
[2023-06-26] MEDS: REMDESIVIR 100 MG in SODIUM CHLORIDE 0.9% 100ML 100 ML IV SCH (09:03)
[2023-06-26] MEDS: PANTOPRAZOLE 40 MG TABLET PO SCH ×2 (09:04→20:33)
[2023-06-26] MEDS: dexAMETHasone 4 MG TABLET PO SCH (09:04)
[2023-06-26] MEDS: LOSARTAN 50 MG TABLET PO SCH ×2 (09:06→20:37)
[2023-06-26] MEDS: OSELTAMIVIR 30 MG CAPSULE PO SCH (09:06)
[2023-06-26] MEDS: guaiFENesin 600 MG TABLET PO SCH ×2 (09:06→20:33)
[2023-06-26] MEDS: METOPROLOL SUCCINATE 50 MG TABLET PO SCH ×2 (09:06→20:37)
[2023-06-26] MEDS: CHOLECALCIFEROL 25 MCG TABLET PO SCH (09:06)
[2023-06-26] MEDS: CLOPIDOGREL 75 MG TABLET PO SCH (09:06)
[2023-06-26] MEDS: amLODIPine 5 MG TABLET PO SCH (09:07)
[2023-06-26] MEDS: POTASSIUM CHLORIDE 20 MEQ/15 ML UDC PO SCH (14:59)
[2023-06-26] MEDS: guaiFENesin/CODEINE 5 ML UDC PO PRN (20:37)
[2023-06-27] MEDS: SODIUM CHLORIDE FLUSH 0.9% 10 ML SYRINGE IVP SCH ×3 (00:29→15:56)
[2023-06-27 06:03] LABS: BASOPHILS % (AUTO) 0.1 %; HGB - HEMOGLOBIN 12.3 g/dL (12.0-16.0); LYMPHOCYTES # (AUTO) 1.2 10^3/uL (1.5-3.5); LYMPHOCYTES % (AUTO) 17.5 %; MEAN CORPUSCULAR HEMOGLOBIN 30.2 pg (27.0-31.0); MEAN CORPUSCULAR HGB CONC 33.2 g/dL (32.0-36.0); MEAN CORPUSCULAR VOLUME 90.9 fL (81.0-99.0); MEAN PLATELET VOLUME 10.2 fL (7.9-10.8); MONOCYTES # (AUTO) 0.7 10^3/uL (0.0-1.0); MONOCYTES % (AUTO) 9.5 %; NEUTROPHILS # (AUTO) 5.1 10^3/uL (1.5-6.6); NEUTROPHILS % (AUTO) 72.2 %; PLT - PLATELET COUNT 229 10^3/uL (130-450); RED BLOOD COUNT 4.07 10^6/uL (4.20-5.40); RED CELL DISTRIBUTION WIDTH 12.3 % (12.0-15.0)
[2023-06-27 06:13] LABS: CALCIUM 8.3 mg/dL (8.5-10.3); CREATININE 0.9 mg/dL (0.6-1.3); POTASSIUM 3.9 mmol/L (3.5-4.5)
--- NOTE | 2023-06-27 08:07 | PROVIDER PROGRESS NOTE ---
Subjective - Prog Note Date Prog Note Date: 06/27/23 Prog Note Time: 07:20 - Subjective Subjective: Patient resting comfortably in bed. Denies physical pain, says she has sternal chest pain when she coughs but she states this is unchanged since over a week ago when her symptoms started. Denies any new chest pain or tightness, swelling, palpitations, headache. She states she took a shower today, was not attached to supplemental oxygen. Reports that she did not feel symptomatic or short of breath in the shower, however when she got out and started moving around and getting dressed she became short of breath again. She estimates she feels 55-60% of her baseline today. Eating and drinking water okay. One BM yesterday, she states it was loose/diarrhea. Current Medications - Current Medications Current Medications: Active Medications Acetaminophen (Acetaminophen 325 Mg Tablet) 650 mg PO Q4HR PRN PRN Reason: Pain 1 to 4, or Fever Amlodipine Besylate (Amlodipine 5 Mg Tablet) 10 mg PO DAILY [facility] Last Admin: 06/26/23 09:07 Dose: 10 mg Cholecalciferol (Cholecalciferol 25 Mcg Tablet) 50 mcg PO DAILY [facility] Last Admin: 06/26/23 09:06 Dose: 50 mcg Clopidogrel Bisulfate (Clopidogrel 75 Mg Tablet) 75 mg PO DAILY [facility] Last Admin: 06/26/23 09:06 Dose: 75 mg Dexamethasone (Dexamethasone 4 Mg Tablet) 6 mg PO DAILY [facility] Stop: 07/02/23 09:01 Last Admin: 06/26/23 09:04 Dose: 6 mg Docusate Sodium (Docusate Sodium 250 Mg Capsule) 250 - 500 mg PO DAILY [facility] Enoxaparin Sodium (Enoxaparin 30 Mg/0.3 Ml Syringe) 30 mg SUBQ DAILY [facility] Last Admin: 06/26/23 09:03 Dose: 30 mg Guaifenesin (Guaifenesin 600 Mg Tablet) 600 mg PO BID [facility] Last Admin: 06/26/23 20:33 Dose: 600 mg Guaifenesin/Codeine Phosphate (Guaifenesin/Codeine 5 Ml Udc) 5 ml PO Q6HR PRN PRN Reason: Cough Last Admin: 06/26/23 20:37 Dose: 5 ml Remdesivir 100 mg/ Sodium (Chloride) 100 mls @ 200 mls/hr IV DAILY [facility] Stop: 06/29/23 09:29 Last Infusion: 06/26/23 10:14 Dose: Infused Losartan Potassium (Losartan 50 Mg Tablet) 50 mg PO BID [facility] Last Admin: 06/26/23 20:37 Dose: 50 mg Metoprolol Succinate (Metoprolol Succinate 50 Mg Tablet) 50 mg PO BID [facility] Last Admin: 06/26/23 20:37 Dose: 50 mg Ondansetron HCl (Ondansetron Odt 4 Mg Tablet) 4 mg TL Q6HR PRN PRN Reason: Nausea / Vomiting Ondansetron HCl (Ondansetron 4 Mg/2 Ml Vial) 4 mg IVP Q6HR PRN PRN Reason: Nausea / Vomiting Oseltamivir Phosphate (Oseltamivir 30 Mg Capsule) 30 mg PO DAILY [facility] Stop: 07/01/23 09:01 Last Admin: 06/26/23 09:06 Dose: 30 mg Oxycodone HCl (Oxycodone 5 Mg Tablet) 5 mg PO Q4HR PRN PRN Reason: Pain 5 to 7 Pantoprazole Sodium (Pantoprazole 40 Mg Tablet) 40 mg PO BID [facility] Last Admin: 06/26/23 20:33 Dose: 40 mg Polyethylene Glycol (Polyethylene Glycol 3350 17 Gm Packet) 17 gm PO DAILY [facility] Last Admin: 06/26/23 09:03 Dose: 17 gm Potassium Chloride (Potassium Chloride 20 Meq/15 Ml Udc) 20 meq PO DAILYWM [facility] Last Admin: 06/26/23 14:59 Dose: 20 meq Senna (Senna 8.6 Mg Tablet) 8.6 - 17.2 mg PO DAILY [facility] Sodium Chloride (Sodium Chloride Flush 0.9% 10 Ml Syringe) 10 ml IVP PRN PRN PRN Reason: NEEDED PER PROVIDER ORDERS Sodium Chloride (Sodium Chloride Flush 0.9% 10 Ml Syringe) 10 ml IVP 0100,0900,1700 [facility] Last Admin: 06/27/23 00:29 Dose: 10 ml Clopidogrel Bisulfate [Plavix] 75 mg PO DAILY 06/24/23 Losartan [Cozaar] 50 mg PO BID 06/24/23 Metoprolol Succinate [Toprol Xl] 50 mg PO BID 06/24/23 Pantoprazole [Protonix] 40 mg PO BID 06/24/23 Rosuvastatin Calcium 20 mg PO HS 06/24/23 amLODIPine [Norvasc] 10 mg PO DAILY 06/24/23 Objective - Vital Signs/Intake & Output Reviewed Vital Signs: Yes Vital Signs: Vital Signs x48h Temp Pulse Resp BP Pulse Ox O2 Flow Rate 06/27/23 00:09 36.8 C 53 L 16 154/67 H 92 1 Intake & Output: Intake & Output 06/24/23 06/25/23 06/26/23 06/27/23 23:59 23:59 23:59 23:59 Intake Total 1637.408 595 7315 Balance 1637.235 840 7114 - Objective General Appearance: positive: No acute distress, Alert, Other (Pleasant elderly woman resting comfortably in her bed, nasal cannula in place.) Eyes Bilateral: positive: Normal inspection, No lid inflammation ENT: positive: ENT inspection nml, Other (crusted lesions on lips, improved today) Neck: positive: Nml inspection Respiratory: positive: Chest non-tender, No respiratory distress, Other (Decreased breath sounds at the bases.) Cardiovascular: positive: Bradycardia (Regular rate) Abdomen: positive: Non-tender, No organomegaly, Nml bowel sounds, No distention. negative: Guarding, Rebound, Mass Skin: positive: Warm, Dry Extremities: positive: Non-tender, No pedal edema Neurologic/Psychiatric: positive: Oriented x3, Mood/affect nml, Other. negative: Facial droop, Slurred/abnml speech (Pleasant, calm and cooperative patient.) - Lab Results Fish Bones: 06/27/23 05:10 06/27/23 05:10 Other Labs: Lab Results x24hrs 06/27/23 06/27/23 Range/Units 05:10 05:10 WBC 7.0 (4.8-10.8) x10^3/uL RBC 4.07 L (4.20-5.40) 10^6/uL Hgb 12.3 (12.0-16.0) g/dL Hct 37.0 (37.0-47.0) % MCV 90.9 (81.0-99.0) fL MCH 30.2 (27.0-31.0) pg MCHC 33.2 (32.0-36.0) g/dL RDW 12.3 (12.0-15.0) % Plt Count 229 (130-450) 10^3/uL MPV 10.2 (7.9-10.8) fL Neut # (Auto) 5.1 (1.5-6.6) 10^3/uL Lymph # (Auto) 1.2 L (1.5-3.5) 10^3/uL [place] # (Auto) 0.7 (0.0-1.0) 10^3/uL Eos # (Auto) 0.0 (0.0-0.7) 10^3/uL Baso # (Auto) 0.0 (0.0-0.1) 10^3/uL Absolute Nucleated RBC 0.00 x10^3/uL Nucleated RBC % 0.0 /100WBC Sodium 141 (135-145) mmol/L Potassium 3.9 (3.5-4.5) mmol/L Chloride 108 (101-111) mmol/L Carbon Dioxide 26 (21-32) mmol/L Anion Gap 7.0 (6-13) BUN 24 H (6-20) mg/dL Creatinine 0.9 (0.6-1.3) mg/dL Estimated GFR (MDRD) 61 L (>89) Glucose 120 H (74-104) mg/dL Calcium 8.3 L (8.5-10.3) mg/dL ABX Reporting Has patient been on IV antibiotics over the past 48 hours?: No Assessment/Plan - Problem List (1) Acute respiratory failure with hypoxia Impression: Secondary to COVID-19 and influenza infection. Likely exacerbated by COPD. CXR 06/25 was reassuring there is not any acute cardiopulmonary process. Her troponin and BNP were mildly elevated on admission, this is likely secondary to viral infection. She is not in respiratory distress. AG WNL today. She is afebrile, O2 sat 92% 1 L supplemental oxygen. She is able to ambulate independently. After her shower today, her O2 sat decreased to 82% on RA. When resting back in her bed her O2 returned to the 90s. Plan - continue isolation precautions - continue supplemental oxygen - continue robutussin - continue oseltamivir, remdesivir and dexamethasone - daily BMP - Continue home pantoprazole (2) Influenza A Impression: Influenza A positive on admission. Isolation precautions to continue until 7 da ys of illness onset or until 24 hours after resolution of respiratory sx. She will continue oseltamivir until 07/01/23. Plan: - continue isolation precautions - continue tamiflu (3) COVID Impression: COVID-19 positive on admission. Isolation precautions can be discontinued after 10 days of symptom onset. Continue dexamethasone until 07/02/23. Plan: - continue isolation precautions - continue dexamethasone and remdesivir (4) COPD (chronic obstructive pulmonary disease) Impression: Pulmonary function test in August 2016 revealed moderately reduced FEV1, COPD with underlying emphysema. Patient does not use inhalers used at home or need supplemental oxygen. Continue to manage viral infections and hypoxia as above. Plan: -Continue supplemental oxygen (5) Hypokalemia Impression: Resolved. Potassium 3.9 today. (6) Acute kidney injury Impression: Resolved. Likely secondary to viral infection. Patient has a history of renal artery stenosis and chronic renal insufficiency. His creatinine upon admission was 2.1, BUN was 45. Baseline creatinine ranges 0.8-1.0. Today creatinine is 0.9 and BUN has decreased. (7) Hypertension Impression: She has been hypertensive during admission, will continue her home medications and continue to monitor. - continue home amlodipine, losartan, metoprolol (8) Type 2 diabetes mellitus Impression: Does not take daily medications for this, last A1c was 6.6. It appears she is well controlled on diet. Her glucose has been elevated between 110s-130s since admission, will continue to monitor, she does not need insulin at this time. (9) Dyslipidemia Impression: Will hold home rosuvastatin this admission. (10) Peripheral Arterial Disease with lower extremity bilateral claudication Impression: Continue home clopidogrel.
[2023-06-27] MEDS ORDERED: SODIUM CHLORIDE 0.9% 100ML 100 ML IV ONE (08:40)
[2023-06-27] MEDS: POTASSIUM CHLORIDE 20 MEQ/15 ML UDC PO SCH (09:03)
[2023-06-27] MEDS: polyethylene glycoL 3350 17 GM PACKET PO SCH (09:04)
[2023-06-27] MEDS: guaiFENesin 600 MG TABLET PO SCH ×2 (09:06→20:37)
[2023-06-27] MEDS: CLOPIDOGREL 75 MG TABLET PO SCH (09:06)
[2023-06-27] MEDS: OSELTAMIVIR 30 MG CAPSULE PO SCH (09:06)
[2023-06-27] MEDS: PANTOPRAZOLE 40 MG TABLET PO SCH ×2 (09:06→20:37)
[2023-06-27] MEDS: DOCUSATE SODIUM 250 MG CAPSULE PO SCH (09:07)
[2023-06-27] MEDS: CHOLECALCIFEROL 25 MCG TABLET PO SCH (09:08)
[2023-06-27] MEDS: REMDESIVIR 100 MG in SODIUM CHLORIDE 0.9% 100ML 100 ML IV SCH (09:10)
[2023-06-27] MEDS: amLODIPine 5 MG TABLET PO SCH (09:14)
[2023-06-27] MEDS: LOSARTAN 50 MG TABLET PO SCH ×2 (09:14→20:35)
[2023-06-27] MEDS: METOPROLOL SUCCINATE 50 MG TABLET PO SCH ×2 (09:15→20:36)
[2023-06-27] MEDS: dexAMETHasone 4 MG TABLET PO SCH (09:15)
[2023-06-27] MEDS: SENNA 8.6 MG TABLET PO SCH (09:19)
[2023-06-27] MEDS: ENOXAPARIN 30 MG/0.3 ML SYRINGE SUBQ SCH (12:50)
[2023-06-27] MEDS: ACETAMINOPHEN 325 MG TABLET PO PRN ×2 (16:00→20:36)
[2023-06-27] MEDS: guaiFENesin/CODEINE 5 ML UDC PO PRN (20:37)
[2023-06-28] MEDS: SODIUM CHLORIDE FLUSH 0.9% 10 ML SYRINGE IVP SCH ×4 (00:03→23:59)
[2023-06-28] MEDS: polyethylene glycoL 3350 17 GM PACKET PO SCH (01:50)
[2023-06-28] MEDS: DOCUSATE SODIUM 250 MG CAPSULE PO SCH (01:54)
[2023-06-28] MEDS: SENNA 8.6 MG TABLET PO SCH (01:54)
[2023-06-28 05:55] LABS: BASOPHILS % (AUTO) 0.1 %; HCT - HEMATOCRIT 35.6 % (37.0-47.0); HGB - HEMOGLOBIN 11.8 g/dL (12.0-16.0); LYMPHOCYTES # (AUTO) 1.6 10^3/uL (1.5-3.5); LYMPHOCYTES % (AUTO) 20.7 %; MEAN CORPUSCULAR HEMOGLOBIN 30.3 pg (27.0-31.0); MEAN CORPUSCULAR HGB CONC 33.1 g/dL (32.0-36.0); MEAN CORPUSCULAR VOLUME 91.3 fL (81.0-99.0); MEAN PLATELET VOLUME 10.3 fL (7.9-10.8); MONOCYTES # (AUTO) 0.6 10^3/uL (0.0-1.0); MONOCYTES % (AUTO) 7.2 %; NEUTROPHILS # (AUTO) 5.5 10^3/uL (1.5-6.6); NEUTROPHILS % (AUTO) 71.3 %; PLT - PLATELET COUNT 236 10^3/uL (130-450); RED CELL DISTRIBUTION WIDTH 12.4 % (12.0-15.0); WHITE BLOOD COUNT 7.7 x10^3/uL (4.8-10.8)
[2023-06-28 06:19] LABS: CALCIUM 8.4 mg/dL (8.5-10.3); CREATININE 0.9 mg/dL (0.6-1.3); POTASSIUM 3.6 mmol/L (3.5-4.5)
[2023-06-28] MEDS ORDERED: SODIUM CHLORIDE 0.9% 100ML 100 ML IV ONE (08:30)
[2023-06-28] MEDS: POTASSIUM CHLORIDE 20 MEQ/15 ML UDC PO SCH (08:43)
[2023-06-28] MEDS: CHOLECALCIFEROL 25 MCG TABLET PO SCH (08:44)
[2023-06-28] MEDS: ENOXAPARIN 30 MG/0.3 ML SYRINGE SUBQ SCH (08:44)
[2023-06-28] MEDS: OSELTAMIVIR 30 MG CAPSULE PO SCH (08:44)
[2023-06-28] MEDS: dexAMETHasone 4 MG TABLET PO SCH (08:44)
[2023-06-28] MEDS: LOSARTAN 50 MG TABLET PO SCH ×2 (08:45→21:06)
[2023-06-28] MEDS: amLODIPine 5 MG TABLET PO SCH (08:45)
[2023-06-28] MEDS: CLOPIDOGREL 75 MG TABLET PO SCH (08:45)
[2023-06-28] MEDS: PANTOPRAZOLE 40 MG TABLET PO SCH ×2 (08:45→21:06)
[2023-06-28] MEDS: METOPROLOL SUCCINATE 50 MG TABLET PO SCH ×2 (08:46→21:05)
[2023-06-28] MEDS: guaiFENesin 600 MG TABLET PO SCH ×2 (08:46→21:06)
[2023-06-28] MEDS: REMDESIVIR 100 MG in SODIUM CHLORIDE 0.9% 100ML 100 ML IV SCH (09:47)
--- NOTE | 2023-06-28 14:12 | PROVIDER PROGRESS NOTE ---
Subjective - Prog Note Date Prog Note Date: 06/28/23 Prog Note Time: 14:01 - Subjective Pt reports feeling: No change Subjective: Patient's friend, Leroy, present at bedside. Patient reports she is feeling about the same. Denies physical pain or any new symptoms. She feels most comfortable with discharge tomorrow. BMs have continued to be loose, diarrhea. Current Medications - Current Medications Current Medications: Active Medications Acetaminophen (Acetaminophen 325 Mg Tablet) 650 mg PO Q4HR PRN PRN Reason: Pain 1 to 4, or Fever Last Admin: 06/27/23 20:36 Dose: 650 mg Amlodipine Besylate (Amlodipine 5 Mg Tablet) 10 mg PO DAILY [facility] Last Admin: 06/28/23 08:45 Dose: 10 mg Cholecalciferol (Cholecalciferol 25 Mcg Tablet) 50 mcg PO DAILY [facility] Last Admin: 06/28/23 08:44 Dose: 50 mcg Clopidogrel Bisulfate (Clopidogrel 75 Mg Tablet) 75 mg PO DAILY [facility] Last Admin: 06/28/23 08:45 Dose: 75 mg Dexamethasone (Dexamethasone 4 Mg Tablet) 6 mg PO DAILY [facility] Stop: 07/02/23 09:01 Last Admin: 06/28/23 08:44 Dose: 6 mg Docusate Sodium (Docusate Sodium 250 Mg Capsule) 250 - 500 mg PO DAILY [facility] Last Admin: 06/28/23 01:54 Dose: Not Given Enoxaparin Sodium (Enoxaparin 30 Mg/0.3 Ml Syringe) 30 mg SUBQ DAILY [facility] Last Admin: 06/28/23 08:44 Dose: 30 mg Guaifenesin (Guaifenesin 600 Mg Tablet) 600 mg PO BID [facility] Last Admin: 06/28/23 08:46 Dose: 600 mg Guaifenesin/Codeine Phosphate (Guaifenesin/Codeine 5 Ml Udc) 5 ml PO Q6HR PRN PRN Reason: Cough Last Admin: 06/27/23 20:37 Dose: 5 ml Remdesivir 100 mg/ Sodium (Chloride) 100 mls @ 200 mls/hr IV DAILY [facility] Stop: 06/29/23 09:29 Last Infusion: 06/28/23 10:22 Dose: Infused Losartan Potassium (Losartan 50 Mg Tablet) 50 mg PO BID [facility] Last Admin: 06/28/23 08:45 Dose: 50 mg Metoprolol Succinate (Metoprolol Succinate 50 Mg Tablet) 50 mg PO BID [facility] Last Admin: 06/28/23 08:46 Dose: 50 mg Ondansetron HCl (Ondansetron Odt 4 Mg Tablet) 4 mg TL Q6HR PRN PRN Reason: Nausea / Vomiting Ondansetron HCl (Ondansetron 4 Mg/2 Ml Vial) 4 mg IVP Q6HR PRN PRN Reason: Nausea / Vomiting Oseltamivir Phosphate (Oseltamivir 30 Mg Capsule) 30 mg PO DAILY [facility] Stop: 07/01/23 09:01 Last Admin: 06/28/23 08:44 Dose: 30 mg Oxycodone HCl (Oxycodone 5 Mg Tablet) 5 mg PO Q4HR PRN PRN Reason: Pain 5 to 7 Pantoprazole Sodium (Pantoprazole 40 Mg Tablet) 40 mg PO BID [facility] Last Admin: 06/28/23 08:45 Dose: 40 mg Polyethylene Glycol (Polyethylene Glycol 3350 17 Gm Packet) 17 gm PO DAILY [facility] Last Admin: 06/28/23 01:50 Dose: Not Given Potassium Chloride (Potassium Chloride 20 Meq/15 Ml Udc) 20 meq PO DAILYWM [facility] Last Admin: 06/28/23 08:43 Dose: 20 meq Senna (Senna 8.6 Mg Tablet) 8.6 - 17.2 mg PO DAILY [facility] Last Admin: 06/28/23 01:54 Dose: Not Given Sodium Chloride (Sodium Chloride Flush 0.9% 10 Ml Syringe) 10 ml IVP PRN PRN PRN Reason: NEEDED PER PROVIDER ORDERS Sodium Chloride (Sodium Chloride Flush 0.9% 10 Ml Syringe) 10 ml IVP 0100,0900,1700 [facility] Last Admin: 06/28/23 08:48 Dose: 10 ml Clopidogrel Bisulfate [Plavix] 75 mg PO DAILY 06/24/23 Losartan [Cozaar] 50 mg PO BID 06/24/23 Metoprolol Succinate [Toprol Xl] 50 mg PO BID 06/24/23 Pantoprazole [Protonix] 40 mg PO BID 06/24/23 Rosuvastatin Calcium 20 mg PO HS 06/24/23 amLODIPine [Norvasc] 10 mg PO DAILY 06/24/23 Objective - Vital Signs/Intake & Output Reviewed Vital Signs: Yes Vital Signs: Vital Signs x48h Temp Pulse Resp BP Pulse Ox O2 Flow Rate 06/28/23 11:50 36.7 C 20 154/64 H 92 1 06/28/23 07:55 36.4 C L 61 18 155/71 H 92 1 Intake & Output: Intake & Output 06/25/23 06/26/23 06/27/23 06/28/23 23:59 23:59 23:59 23:59 Intake Total 860 3370 1860 1060 Balance 860 3370 1860 1060 - Objective General Appearance: positive: No acute distress, Alert, Other (Pleasant woman resting in bed, nasal cannula in place, watching television.) Eyes Bilateral: positive: Normal inspection, No lid inflammation, Conjunctivae nml ENT: positive: Oral lesions (crusted lesions on lips bilaterally) Respiratory: positive: Chest non-tender, No respiratory distress, Other (crackles at the bases bilaterally) Cardiovascular: positive: Bradycardia (regular rhythm) Abdomen: positive: Non-tender Skin: positive: Warm, Dry Extremities: positive: Non-tender, No pedal edema Neurologic/Psychiatric: positive: Oriented x3 - Lab Results Fish Bones: 06/28/23 05:17 06/28/23 05:17 Other Labs: Lab Results x24hrs 06/28/23 06/28/23 Range/Units 05:17 05:17 WBC 7.7 (4.8-10.8) x10^3/uL RBC 3.90 L (4.20-5.40) 10^6/uL Hgb 11.8 L (12.0-16.0) g/dL Hct 35.6 L (37.0-47.0) % MCV 91.3 (81.0-99.0) fL MCH 30.3 (27.0-31.0) pg MCHC 33.1 (32.0-36.0) g/dL RDW 12.4 (12.0-15.0) % Plt Count 236 (130-450) 10^3/uL MPV 10.3 (7.9-10.8) fL Neut # (Auto) 5.5 (1.5-6.6) 10^3/uL Lymph # (Auto) 1.6 (1.5-3.5) 10^3/uL [place] # (Auto) 0.6 (0.0-1.0) 10^3/uL Eos # (Auto) 0.0 (0.0-0.7) 10^3/uL Baso # (Auto) 0.0 (0.0-0.1) 10^3/uL Absolute Nucleated RBC 0.00 x10^3/uL Nucleated RBC % 0.0 /100WBC Sodium 139 (135-145) mmol/L Potassium 3.6 (3.5-4.5) mmol/L Chloride 106 (101-111) mmol/L Carbon Dioxide 25 (21-32) mmol/L Anion Gap 8.0 (6-13) BUN 27 H (6-20) mg/dL Creatinine 0.9 (0.6-1.3) mg/dL Estimated GFR (MDRD) 61 L (>89) Glucose 115 H (74-104) mg/dL Calcium 8.4 L (8.5-10.3) mg/dL ABX Reporting Has patient been on IV antibiotics over the past 48 hours?: No Assessment/Plan - Problem List (1) Acute respiratory failure with hypoxia Impression: Secondary to COVID-19 and influenza infection. Likely exacerbated by COPD. CXR 06/25 was reassuring there is not any acute cardiopulmonary process. Her troponin and BNP were mildly elevated on admission, this is likely secondary to viral infection. She is not in respiratory distress. AG WNL today. She is afebrile, O2 sat 92% 1 L supplemental oxygen. Room air oxygen trial today showed her O2 averaged 91-92%, she was symptomatic and SOB when moving to the edge of her bed. She ambulated to and from the bathroom and appeared to be short of breath, slightly tachypnic at 24 RR. O2 was 87% initially when 1L O2 nasal cannula placed on patient, then after about 5 deep breaths from patient, O2 deana to 92%. Patient recovered well. Plan for discharge tomorrow with 1L oxygen Plan - continue isolation precautions - continue supplemental oxygen - continue robutussin - continue oseltamivir, remdesivir and dexamethasone - daily BMP - Continue home pantoprazole (2) Influenza A Impression: Influenza A positive on admission. Isolation precautions to continue until 7 days of illness onset or until 24 hours after resolution of respiratory sx. She will continue oseltamivir until 07/01/23. Plan: - continue isolation precautions - continue tamiflu (3) COVID Impression: COVID-19 positive on admission. Isolation precautions can be discontinued after 10 days of symptom onset. Continue dexamethasone until 07/02/23. Last day of Remdesivir is tomorrow. Plan: - continue isolation precautions - continue dexamethasone and remdesivir (4) COPD (chronic obstructive pulmonary disease) Impression: Pulmonary function test in August 2016 revealed moderately reduced FEV1, COPD with underlying emphysema. Patient does not use inhalers used at home or need supplemental oxygen. Continue to manage viral infections and hypoxia as above. Plan: -Continue supplemental oxygen (5) Hypokalemia Impression: Resolved. Potassium 3.6 today. (6) Acute kidney injury Impression: Resolved. Likely secondary to viral infection. Patient has a history of renal artery stenosis and chronic renal insufficiency. His creatinine upon admission was 2.1, BUN was 45. Baseline creatinine ranges 0.8-1.0. Today creatinine is 0.9 and BUN has decreased. (7) Hypertension Impression: She has been hypertensive during admission, will continue her home medications and continue to monitor. - continue home amlodipine, losartan, metoprolol (8) Type 2 diabetes mellitus Impression: Does not take daily medications for this, last A1c was 6.6. It appears she is well controlled on diet. Her glucose has been elevated between 110s-130s since admission, will continue to monitor, she does not need insulin at this time. (9) Dyslipidemia Impression: Will hold home rosuvastatin this admission. (10) Peripheral Arterial Disease with lower extremity bilateral claudication Impression: Continue home clopidogrel.
[2023-06-28] MEDS: ACETAMINOPHEN 325 MG TABLET PO PRN ×2 (16:28→21:06)
[2023-06-28] MEDS: guaiFENesin/CODEINE 5 ML UDC PO PRN (21:07)
[2023-06-29] MEDS: guaiFENesin/CODEINE 5 ML UDC PO PRN (05:39)
[2023-06-29 06:04] LABS: BASOPHILS % (AUTO) 0.1 %; EOSINOPHILS % (AUTO) 0.1 %; HCT - HEMATOCRIT 37.5 % (37.0-47.0); HGB - HEMOGLOBIN 12.1 g/dL (12.0-16.0); LYMPHOCYTES # (AUTO) 1.8 10^3/uL (1.5-3.5); LYMPHOCYTES % (AUTO) 21.6 %; MEAN CORPUSCULAR HEMOGLOBIN 30.1 pg (27.0-31.0); MEAN CORPUSCULAR HGB CONC 32.3 g/dL (32.0-36.0); MEAN CORPUSCULAR VOLUME 93.3 fL (81.0-99.0); MEAN PLATELET VOLUME 9.8 fL (7.9-10.8); MONOCYTES # (AUTO) 0.5 10^3/uL (0.0-1.0); MONOCYTES % (AUTO) 6.3 %; NEUTROPHILS # (AUTO) 5.8 10^3/uL (1.5-6.6); NEUTROPHILS % (AUTO) 71.3 %; PLT - PLATELET COUNT 267 10^3/uL (130-450); RED BLOOD COUNT 4.02 10^6/uL (4.20-5.40); RED CELL DISTRIBUTION WIDTH 12.4 % (12.0-15.0); WHITE BLOOD COUNT 8.1 x10^3/uL (4.8-10.8)
[2023-06-29 06:17] LABS: CALCIUM 8.3 mg/dL (8.5-10.3); POTASSIUM 3.9 mmol/L (3.5-4.5)
[2023-06-29 08:18] VITALS: BP 147/63; O2SAT 87
--- NOTE | 2023-06-29 08:24 | DISCHARGE SUMMARY ---
"Discharge Summary Admit Date: 06/24/23 Discharge Date: 06/29/23 Discharging Provider: Larisa Cloud MD Primary Care Provider: Blanca Hernandez PA-C Condition at Discharge: Stable Discharge Disposition: Home, Self Care Discharge Facility Name: [facility] - DIAGNOSES Discharge Diagnoses with Status of Each Condition: 1. Acute Respiratory failure with hypoxia - Stable upon discharge. Discharged on 2 L of supplemental oxygen to be used at all times. 2. Influenza A - Treated with tamiflu - 1 more day upon discharge. 3. COVID - Finished Remdesivir, 2 more days of dexamethasone upon discharge. Robutussin given during admission for cough relief. 4. COPD - f/u PCP 5. Hypokalemia - Repleted with oral potassium, follow up with PCP. 6. Acute Kidney Injury - Creatinine/BUN elevated at admission. Resolved upon discharge. Follow up with PCP. 7. Hypertension - Hypertensive throughout admission, follow up with PCP. 8. Type 2 Diabetes Mellitus - f/u PCP 9. Dyslipidemia - f/u PCP 10. Peripheral Arterial Disease with hernadez extremity bilateral claudication- f/u PCP - HPI History of Present Illness: Pleasant 72 year old woman resting comfortably in bed, no oxygen nasal cannula in place. Reports she is feeling about the same. Denies physical pain, shortness of breath at rest. Still short of breath with ambulation. Admits intermittent sharp chest pain when she coughs. Chest pain is unchanged in frequency, duration, or quality since admission. Diarrhea has resolved. She states her friend Leroy will be coming in today to help her get home. - CONSULTS | PROCEDURES Procedures: 06/23/23 - CXR - Lungs clear, no pleural effusions or pneumothorax. No cardiom egaly. Aortic arch atherosclerotic calcifications. No acute cardiopulmonary process. 06/24/23 - EKG - Rate 60, Sinus rhythm. Normal axis. Normal [place] interval. Normal QRS. Normal ST segments. Nondiagnostic ST depressions in V3-V6, T wave inversion, diffuse biphasic and inverted T waves. - HOSPITAL COURSE Hospital Course: Betty Hung is a 72 yo F with a PMHx of COPD, peripheral vascular disease, renal artery stenosis, T2DM, HTN and HLD who presented to [facility] ED for dyspnea worse with exertion x 6 days. Nonproductive cough, left shoulder pain radiating to upper back, subjective fever, shaking chills. EKG was done and revealed normal sinus rhythm, minimal ST depressions in v3-v6, T wave inversion, and diffuse biphasic and inverted T waves. WBC was 10.8, H&H WNL, AG of 15, BUN 45, creatinine 2.1. Influenza A and COVID-19 positive. Upon admission to the med surg unit, temperature was 36.4 C, SBP ranging between 100s-130s, and DBP 40s-70s, HR in 60s, and RR 14. O2 was 99% on 2 L nasal cannula. Reported feeling poorly 7 days ago, with shortness of breath, fever, chills, weakness, productive cough, and a recent episode of chest pain that prompted her to visit the ER. She was concerned because her mother of an AL when she was 47. Denied any physical pain, shortness of breath, or current chest pain. Diarrhea x4 days. No N/V, abdominal pain. She was placed in isolation precautions and was treated with oseltamivir, remdesivir and dexamethasone and kept on 2L nasal cannula. Robotussin given for nonproductive cough that reproduces sharp chest pain. Her potassium was low during admission, and was repleted with PO supplementation. Home amlodipine, losartan and metoprolol were continued throughout admission, though she remained hypertensive. She became symptomatic when ambulating in her room, dropping as low as 76% on room air. She was hypoxic at rest, with room air O2 sats of 85% At rest with 2 lpm nasal cannula, her O2 sats improved to 95% With ambulation on 2 lpm nasal cannula, her O2 sats were 97% I am ordering home O2, 2 lpm at rest and exertion to treat her COVID pneumonia and hypoxia. - ALLERGIES Allergies/Adverse Reactions: Allergies Allergy/AdvReac Type Severity Reaction Status Date / Time No Known Drug Allergies Allergy Verified 06/23/23 19:56 - MEDICATIONS Home Medications: Ambulatory Orders Medication Instructions Recorded Confirmed Clopidogrel Bisulfate [Plavix] 75 mg PO DAILY 06/24/23 06/24/23 Losartan [Cozaar] 50 mg PO BID 06/24/23 06/24/23 Metoprolol Succinate [Toprol Xl] 50 mg PO BID 06/24/23 06/24/23 Pantoprazole [Protonix] 40 mg PO BID 01/17/24 01/17/24 Rosuvastatin Calcium 20 mg PO HS 06/24/23 06/24/23 amLODIPine [Norvasc] 10 mg PO DAILY 06/24/23 06/24/23 Oseltamivir [Tamiflu] 30 mg PO DAILY #2 cap 06/29/23 dexAMETHasone [Decadron] 6 mg PO DAILY #6 tab 06/29/23 - PHYSICAL EXAM AT DISCHARGE General Appearance: positive: No acute distress, Alert Eyes Bilateral: positive: No lid inflammation, Conjunctivae nml Respiratory: positive: Chest non-tender, Breath sounds nml, Other (Breathing on RA, no respiratory distress) Cardiovascular: positive: Regular rate & rhythm Abdomen: positive: Non-tender Skin: positive: Warm, Dry Neurologic/Psychiatric: positive: Oriented x3, Mood/affect nml - LABS Result Diagrams: 06/29/23 05:58 06/29/23 05:58 - FOLLOW UP Follow Up: Follow up with PCP - TIME SPENT Time Spent in Discharge (Minutes): 40"
--- NOTE | 2023-06-29 08:56 | Discharge Plan ---
Discharge Plan Problem Reviewed?: Yes Disposition: Home, Self Care Condition: Stable Prescriptions: dexAMETHasone [Decadron] 6 mg PO DAILY #6 tab Oseltamivir [Tamiflu] 30 mg PO DAILY #2 cap Diet: Regular Activity Restrictions: No Restrictions Shower Restrictions: No Driving Restrictions: No Instruction Topics: ED Flu, ED Viral Syndrome, Medication: Tamiflu (Oseltamivir) Health Concerns: You came to the emergency room because of shortness of breath, cough, and fever. Your past medical history is significant for emphysema, diabetes, hypertension, and peripheral vascular disease of the legs. You came to the emergency room on June 23 and has been going on for 6 days. Chest x-ray did not show pneumonia but you had positive influenza A and positive COVID-19. Unfortunately you had stay in the ER overnight because we did not have any beds inside the hospital. The next day we did and you were able to be admitted. You have now completed remdesivir. You need to do 4 more days of Decadron. You need to do 1 more day of Tamiflu for the flu. And you also have to do oxygen. Plan of Treatment: At discharge, we have evaluated you for how much oxygen you needed. On room air your oxygen saturation was 85% With walking in the room your oxygen saturation was 95% with 2 liters. As such she will be sent home with 2 liters of nasal cannula Please finish the Tamiflu for 2 pills today. Please finish the Decadron for the COVID. 1-1/2 tablets for 4 more days. Please see your primary care provider in follow-up. They can keep on checking your oxygen to see when it is time to come off of it. Care Goals: To stabilize your emphysema and asthma. And eventually come off oxygen. Assessment: Patient is a rajiv female who is alert, oriented to person, place, time, situation is self decisional No Smoking: If you smoke, Please STOP! Call for help. Follow-up with: Blanca Hernandez PA-C [Primary Care Provider] -
[2023-06-29] MEDS: REMDESIVIR 100 MG in SODIUM CHLORIDE 0.9% 100ML 100 ML IV SCH (09:32)
[2023-06-29] MEDS: ENOXAPARIN 30 MG/0.3 ML SYRINGE SUBQ SCH (09:33)
[2023-06-29] MEDS: polyethylene glycoL 3350 17 GM PACKET PO SCH (09:33)
[2023-06-29] MEDS: CHOLECALCIFEROL 25 MCG TABLET PO SCH (09:34)
[2023-06-29] MEDS: POTASSIUM CHLORIDE 20 MEQ/15 ML UDC PO SCH (09:34)
[2023-06-29] MEDS: OSELTAMIVIR 30 MG CAPSULE PO SCH (09:34)
[2023-06-29] MEDS: SENNA 8.6 MG TABLET PO SCH (09:34)
[2023-06-29] MEDS: DOCUSATE SODIUM 250 MG CAPSULE PO SCH (09:34)
[2023-06-29] MEDS: guaiFENesin 600 MG TABLET PO SCH (09:35)
[2023-06-29] MEDS: dexAMETHasone 4 MG TABLET PO SCH (09:35)
[2023-06-29] MEDS: METOPROLOL SUCCINATE 50 MG TABLET PO SCH (09:35)
[2023-06-29] MEDS: PANTOPRAZOLE 40 MG TABLET PO SCH (09:35)
[2023-06-29] MEDS: LOSARTAN 50 MG TABLET PO SCH (09:35)
[2023-06-29] MEDS: amLODIPine 5 MG TABLET PO SCH (09:36)
[2023-06-29] MEDS: CLOPIDOGREL 75 MG TABLET PO SCH (09:36)
[2023-06-29] MEDS: SODIUM CHLORIDE FLUSH 0.9% 10 ML SYRINGE IVP SCH (09:36)
[2023-06-29] MEDS: ACETAMINOPHEN 325 MG TABLET PO PRN (09:52)
== END 2023-06-29 12:40 | disposition home or self-care (01) | DRG 189 ==
LOC: ED 19:28 → MS2 06-24 12:03
PROVIDERS: ADMIT Specialist; ATTEND Specialist
PROC: XW033E5 Introduction of Remdesivir Anti-infective into Peripheral Vein, Percutaneous Approach, New Technology Group 5 (ICD-10-PCS; principal; 2023-06-24)
DX: J96.01 Acute respiratory failure with hypoxia (principal); U07.1 COVID-19; R09.02 Hypoxemia; R79.89 Other specified abnormal findings of blood chemistry; I10 Essential (primary) hypertension; J12.82 Pneumonia due to coronavirus disease 2019; N17.9 Acute kidney failure, unspecified; J44.0 Chronic obstructive pulmonary disease with (acute) lower respiratory infection; J10.1 Influenza due to other identified influenza virus with other respiratory manifestations; E87.6 Hypokalemia; E78.5 Hyperlipidemia, unspecified; E11.51 Type 2 diabetes mellitus with diabetic peripheral angiopathy without gangrene; M25.512 Pain in left shoulder; R19.7 Diarrhea, unspecified; E11.22 Type 2 diabetes mellitus with diabetic chronic kidney disease; N18.9 Chronic kidney disease, unspecified; I12.9 Hypertensive chronic kidney disease with stage 1 through stage 4 chronic kidney disease, or unspecified chronic kidney disease; M16.0 Bilateral primary osteoarthritis of hip; M48.02 Spinal stenosis, cervical region; M48.061 Spinal stenosis, lumbar region without neurogenic claudication; K13.0 Diseases of lips; Z79.899 Other long term (current) drug therapy; Z80.0 Family history of malignant neoplasm of digestive organs; Z82.0 Family history of epilepsy and other diseases of the nervous system; Z82.49 Family history of ischemic heart disease and other diseases of the circulatory system; Z83.3 Family history of diabetes mellitus; Z87.891 Personal history of nicotine dependence
CPT/HCPCS: 36415; 71045; 80048; 80053; 83690; 83880; 84484; 85025; 87633; 93005; 94640; 94664; 94761; 96374; 99284; 99285; A9270; J1650; J8540

== ENCOUNTER 2023-07-15 08:58 | Outpatient (CLI) | payer MEDICARE ==
[2023-07-15 09:48] LABS: ALBUMIN 3.9 g/dL (3.2-5.5); ALBUMIN/GLOBULIN RATIO 1.1 (1.0-2.2); ALKALINE PHOSPHATASE 53 IU/L (42-121); ALT ALANINE AMINOTRANSFERASE 9 IU/L (10-60); AST ASPARTATE AMINOTRANSFERASE 15 IU/L (10-42); BILIRUBIN,TOTAL 0.8 mg/dL (0.2-1.0); BUN - BLOOD UREA NITROGEN 17 mg/dL (6-20); CALCIUM 9.4 mg/dL (8.5-10.3); CARBON DIOXIDE - CO2 30 mmol/L (21-32); CHLORIDE 100 mmol/L (101-111); CHOL/HDL RATIO 3.6 (<4.4); CHOLESTEROL 144 mg/dL; CREATININE 0.8 mg/dL (0.6-1.3); GFR - MDRD 70 (>89); GLUCOSE 154 mg/dL (74-104); HDL CHOLESTEROL 40 mg/dL; LDL CHOLESTEROL,CALCULATED 76 mg/dL; LDL/HDL RATIO 1.9 (<4.4); POTASSIUM 4.1 mmol/L (3.5-4.5); SODIUM 137 mmol/L (135-145); TOTAL PROTEIN 7.4 g/dL (6.4-8.9); TRIGLYCERIDES 140 mg/dL (48-352); VLDL CHOLESTEROL 28 mg/dL
[2023-07-15 12:30] LABS: ESTIMATED AVERAGE GLUCOSE 160 mg/dL (70-100); HEMOGLOBIN A1c% 7.2 % (4.27-6.07)
--- NOTE | 2023-07-15 17:16 | XRAY Report ---
PROCEDURE: Chest 2V INDICATIONS: INFLUENZA TECHNIQUE: 2 views of the chest were acquired. COMPARISON: None. FINDINGS: Surgical changes and devices: None. Lungs and pleura: No pleural effusions or pneumothorax. Lungs are clear. Mediastinum: Mildly tortuous thoracic aorta is seen. Heart size is normal. Bones and chest wall: No suspicious bony lesions. Overlying soft tissues appear unremarkable. IMPRESSION: No acute cardiopulmonary process. Reviewed by: Yo Falcon MD on 07/15/2023 5:15 PM PST Approved by: Yo Falcon MD on 07/15/2023 5:15 PM PST Station ID: [id number]
== END 2023-07-15 08:59 | disposition home or self-care (01) ==
LOC: LAB 08:58
PROVIDERS: ATTEND Physician Assistant Medical
DX: E11.9 Type 2 diabetes mellitus without complications (principal); U07.1 COVID-19; J10.1 Influenza due to other identified influenza virus with other respiratory manifestations
CPT/HCPCS: 36415; 80053; 80061; 83036; 83721

== ENCOUNTER 2023-12-24 12:38 | Emergency (ER) | payer MEDICARE, OTHER ==
--- NOTE | 2023-12-24 13:11 | ED Physician Documentation ---
PD HPI DYSPNEA - Stated complaint Stated Complaint: SOA - Chief complaint Chief Complaint: Resp - History obtained from History obtained from: Patient, Family - Additional information Additional information: The patient comes to the emergency department chief complaint of dyspnea that has been persistent for the last few weeks. She states that she had COVID back in June and with her history of COPD, was quite sick with the COVID. She came home on supplemental oxygen and was on this for some months before finally deciding that she thought she was better enough to be able to get off of it. Adriel fernanda sent all her equipment back to [facility] [place] about 3 weeks ago and states that shortly after, she realized she was not ready to be off the oxygen yet. She states she has been short of breath ever since, especially at night. She denies fevers or chills or any other feeling of illness. She does not have any aches or any sputum production with her cough. No nasal congestion. The patient states she just feels like she still needs to be on oxygen. She states at night, especially when she lays back, she is coughing and that keeps her up at night. states that the patient's oxygen saturations have been dropping significantly when she walks around or when she lays down at night. He has noticed drops down to the low 80s. They state they tried calling the patient's primary care office but they could not see them until January or February. PD PAST MEDICAL HISTORY - Past Medical History Past Medical History: Yes Cardiovascular: Hypertension, High cholesterol Respiratory: COPD Endocrine/Autoimmune: Type [address]: Other : Renal insuffiency Musculoskeletal: Osteoarthritis, Chronic back pain, Other - Past Surgical History Past Surgical History: Yes General: Colonoscopy Ortho: Other /COURT REPORTER: Other Cardiovascular: Other - Present Medications Home Medications: Ambulatory Orders Medication Instructions Recorded Confirmed Clopidogrel Bisulfate [Plavix] 75 mg PO DAILY 06/24/23 06/24/23 Losartan [Cozaar] 50 mg PO BID 06/24/23 06/24/23 Metoprolol Succinate [Toprol Xl] 50 mg PO BID 06/24/23 06/24/23 Pantoprazole [Protonix] 40 mg PO BID 06/24/23 06/24/23 Rosuvastatin Calcium 20 mg PO HS 06/24/23 06/24/23 amLODIPine [Norvasc] 10 mg PO DAILY 06/24/23 06/24/23 Oseltamivir [Tamiflu] 30 mg PO DAILY #2 cap 06/29/23 dexAMETHasone [Decadron] 6 mg PO DAILY #6 tab 06/29/23 Ipratropium/Albuterol [Duoneb] 3 ml INH Q6H PRN #30 ea 12/24/23 predniSONE [Deltasone] 10 mg PO [id number] #42 tab 12/24/23 - Allergies Allergies/Adverse Reactions: Allergies Allergy/AdvReac Type Severity Reaction Status Date / Time No Known Drug Allergies Allergy Verified 12/24/23 12:49 - Social History Does the pt smoke?: No Smoking Status: Former smoker Does the pt drink ETOH?: No Does the pt have substance abuse?: No - Immunizations Immunizations are current?: Yes PD ED PE NORMAL - Vitals Vital signs reviewed: Yes - General General: Alert and oriented X 3, No acute distress, Well developed/nourished - HEENT HEENT: Atraumatic, EOMI, Moist mucous membranes - Neck Neck: Supple, no meningeal sign - Cardiac Cardiac: RRR, No murmur - Respiratory Respiratory: No respiratory distress, Other (Bilateral expiratory rhonchi with slightly prolonged expiratory phase.) - Abdomen Abdomen: Soft, Non tender, Non distended - Derm Derm: Normal color, Warm and dry, No rash - Extremities Extremities: No deformity - Neuro Neuro: Alert and oriented X 3 - Psych Psych: Normal mood, Normal affect Results - Vitals Vitals: Vital Signs - 24 hr 12/24/23 12/24/23 12/24/23 12:43 13:26 13:39 Temperature 36.5 C Heart Rate 76 79 67 Respiratory 20 17 16 Rate Blood Pressure 143/57 H 120/69 O2 Saturation 87 L 95 Oxygen O2 Source Room air - Labs Labs: Laboratory Tests 12/24/23 12/24/23 12/24/23 13:05 13:05 13:05 WBC 8.1 RBC 4.64 Hgb 13.3 Hct 42.6 MCV 91.8 MCH 28.7 MCHC 31.2 L RDW 12.9 Plt Count 278 MPV 9.6 Neut # (Auto) 4.4 Lymph # (Auto) 2.0 [place] # (Auto) 0.3 Eos # (Auto) 1.4 H Baso # (Auto) 0.1 Absolute Nucleated RBC 0.00 Nucleated RBC % 0.0 Manual Slide Review Indicated RBC Morph Micro Appear 1+ ANISOCYTOSIS Sodium 141 Potassium 3.3 L Chloride 103 Carbon Dioxide 31 Anion Gap 7.0 BUN 14 Creatinine 0.7 Estimated GFR (MDRD) 82 L Glucose 139 H Calcium 9.6 Total Bilirubin 0.6 AST 12 ALT 6 L Alkaline Phosphatase 65 B-Natriuretic Peptide 176 H Total Protein 8.3 Albumin 4.4 Globulin 3.9 Albumin/Globulin Ratio 1.1 Lipase 13 - Rads (name of study) chest XR Relevant Findings:: Final report received, See rad report (neg) PD Medical Decision Making - ED course Complexity details: reviewed results, re-evaluated patient, considered differential, d/w patient ED course: The patient was treated with a DuoNeb and Solu-Medrol and worked up with chest x-ray and labs. She did not sound as though she was acutely ill by her description, and I felt she most likely mainly needed to be back on oxygen as needed. The patient reported feeling better after her DuoNeb and steroids. Her evaluation by RT showed her to stay mostly in the 90s with extended walking and unfortunately, she was outside the 30-day window for resumption of services without reevaluation for oxygen. The patient was advised that she will need to have a sleep study if her desaturations are mainly at night. For now, I will prescribe her a Nebulizer machine with Nebules since this has seemed to have helped here in the emergency department. She will also be placed on a short course of steroids. She is advised to make the next available appointment her primary doctor to have further evaluation for her night breathing issues. Departure - Departure Disposition: 01 Home, Self Care Clinical Impression: COPD exacerbation Condition: Stable Instructions: COPD Dc Prescriptions: predniSONE [Deltasone] 10 mg PO [id number] #42 tab Ipratropium/Albuterol [Duoneb] 3 ml INH Q6H PRN #30 ea PRN Reason: Wheezing Comments: Your chest x-ray looks good. You improved with the medications we gave you in the emergency department, which is good. Unfortunately, because you sent all the equipment back and signed off of the respiratory services, and because it has been more than 30 days, you have to be reevaluated and excepted for oxygen services all over again. Your oxygen saturations did not drop that much while you are up walking about with respiratory therapy, and so they have stated that you do not qualify for oxygen for regular activities. If there is a nighttime issue, you have to have a sleep study before you can be approved for oxygen as an outpatient. You will need to call your primary doctor's office to set up the next available appointment to be seen and evaluated for this. In the meantime, I have prescribed you a nebulizer machine and some nebules to use to help with your breathing and coughing. I have also prescribed a steroid taper that you will take for the next 10 days to assist in opening your airways up. If you feel that you are severely short of breath or that there is an acute issue, please return to the emergency department. Your prescriptions have been electronically transmitted to the [facility] pharmacy in [place]. Please pick your medications up this afternoon. Forms: PCP List
[2023-12-24] MEDS: methylPREDNISolone SUCCINATE 125 MG/2 ML VIAL IVP STA (13:16)
[2023-12-24 13:19] LABS: BASOPHILS # (AUTO) 0.1 10^3/uL (0.0-0.1); BASOPHILS % (AUTO) 1.1 %; EOSINOPHILS # (AUTO) 1.4 10^3/uL (0.0-0.7); EOSINOPHILS % (AUTO) 16.7 %; HCT - HEMATOCRIT 42.6 % (37.0-47.0); HGB - HEMOGLOBIN 13.3 g/dL (12.0-16.0); LYMPHOCYTES % (AUTO) 24.2 %; MEAN CORPUSCULAR HEMOGLOBIN 28.7 pg (27.0-31.0); MEAN CORPUSCULAR HGB CONC 31.2 g/dL (32.0-36.0); MEAN CORPUSCULAR VOLUME 91.8 fL (81.0-99.0); MEAN PLATELET VOLUME 9.6 fL (7.9-10.8); MONOCYTES # (AUTO) 0.3 10^3/uL (0.0-1.0); MONOCYTES % (AUTO) 4.2 %; NEUTROPHILS # (AUTO) 4.4 10^3/uL (1.5-6.6); NEUTROPHILS % (AUTO) 53.6 %; PLT - PLATELET COUNT 278 10^3/uL (130-450); RED BLOOD COUNT 4.64 10^6/uL (4.20-5.40); RED CELL DISTRIBUTION WIDTH 12.9 % (12.0-15.0); WHITE BLOOD COUNT 8.1 x10^3/uL (4.8-10.8)
[2023-12-24 13:21] LABS: SLIDE REVIEW? Indicated
[2023-12-24] MEDS: IPRATROPIUM/ALBUTEROL 3 ML NEB INH STA (13:22)
[2023-12-24 13:38] LABS: ALBUMIN 4.4 g/dL (3.2-5.5); ALBUMIN/GLOBULIN RATIO 1.1 (1.0-2.2); BILIRUBIN,TOTAL 0.6 mg/dL (0.2-1.0); CALCIUM 9.6 mg/dL (8.5-10.3); CREATININE 0.7 mg/dL (0.6-1.3); POTASSIUM 3.3 mmol/L (3.5-4.5); TOTAL PROTEIN 8.3 g/dL (6.4-8.9)
[2023-12-24 13:45] LABS: RBC MORPHOLOGY (MULTIPLE) 1+ ANISOCYTOSIS (NORMAL)
--- NOTE | 2023-12-24 13:52 | XRAY Report ---
PROCEDURE: Chest 1V INDICATIONS: cough/dyspnea TECHNIQUE: One view of the chest was acquired. COMPARISON: 07/15/2023. FINDINGS: Surgical changes and devices: None. Lungs and pleura: No pleural effusions or pneumothorax. Lungs are clear. Mediastinum: Mediastinal contours appear normal. Tortuous, calcified thoracic aorta. Heart size is normal. Bones and chest wall: No suspicious bony lesions. Overlying soft tissues appear unremarkable. IMPRESSION: No acute cardiopulmonary process. Reviewed by: Shahbaz Hutchins MD on 12/24/2023 1:51 PM PDT Approved by: Shahbaz Hutchins MD on 12/24/2023 1:51 PM PDT Station ID: [id number]
[2023-12-24 15:39] VITALS: BP 145/74; O2SAT 94
== END 2023-12-24 15:30 | disposition home or self-care (01) ==
LOC: ED 12:38
DX: J44.1 Chronic obstructive pulmonary disease with (acute) exacerbation (principal); Z87.891 Personal history of nicotine dependence
CPT/HCPCS: 36415; 80053; 83690; 83880; 85025; 94640; 96374; 99284

== ENCOUNTER 2024-01-29 08:26 | Outpatient (CLI) | payer MEDICARE ==
[2024-01-29 12:43] LABS: ALBUMIN/GLOBULIN RATIO 1.1 (1.0-2.2); ALKALINE PHOSPHATASE 83 IU/L (42-121); ALT ALANINE AMINOTRANSFERASE 11 IU/L (10-60); AST ASPARTATE AMINOTRANSFERASE 18 IU/L (10-42); BILIRUBIN,TOTAL 0.6 mg/dL (0.2-1.0); BUN - BLOOD UREA NITROGEN 21 mg/dL (6-20); CALCIUM 9.3 mg/dL (8.5-10.3); CARBON DIOXIDE - CO2 31 mmol/L (21-32); CHLORIDE 103 mmol/L (101-111); CHOL/HDL RATIO 3.3 (<4.4); CHOLESTEROL 144 mg/dL; CREATININE 0.7 mg/dL (0.6-1.3); ESTIMATED AVERAGE GLUCOSE 146 mg/dL (70-100); GFR - MDRD 82 (>89); GLUCOSE 120 mg/dL (74-104); HDL CHOLESTEROL 43 mg/dL; HEMOGLOBIN A1c% 6.7 % (4.27-6.07); LDL CHOLESTEROL,CALCULATED 71 mg/dL; LDL/HDL RATIO 1.7 (<4.4); POTASSIUM 4.3 mmol/L (3.5-4.5); SODIUM 140 mmol/L (135-145); TOTAL PROTEIN 7.5 g/dL (6.4-8.9); TRIGLYCERIDES 149 mg/dL; VLDL CHOLESTEROL 30 mg/dL
== END 2024-01-29 08:27 | disposition home or self-care (01) ==
LOC: LAB.N 08:26
PROVIDERS: ATTEND Physician Assistant Medical
DX: E11.9 Type 2 diabetes mellitus without complications (principal)
CPT/HCPCS: 36415; 80053; 80061; 83036; 83721

== ENCOUNTER 2024-02-29 10:57 | Outpatient (CLI) | payer MEDICARE ==
--- NOTE | 2024-03-02 11:00 | Mammography Report ---
BILATERAL DIGITAL SCREENING MAMMOGRAM 3D/2D: 02/29/2024 CLINICAL: Routine screening. Comparison is made to exams dated: 02/16/2023 mammogram, 02/06/2022 mammogram, 01/24/2021 mammogram, 12/08 mammogram, 01/05/2020 mammogram, and 11/25/2019 mammogram - [facility]. The breasts are heterogeneously dense, which may obscure small masses (category c / 51-75% glandular tissue). No significant masses, calcifications, or other findings are seen in either breast. There has been no significant interval change. IMPRESSION: NEGATIVE There is no mammographic evidence of malignancy. A 1 year screening mammogram is recommended. Based on the Tyrer Cuzick model (a risk assessment model) the patient's lifetime risk is 6.1% and her 10 year risk is 5.5%. According to the ACR, ACS, and NCCN guidelines, an annual breast MRI exam siria g with mammogram is recommended if the patient's lifetime risk is 20% or greater. This exam was interpreted at Station ID: [id number]. NOTE: For mammograms, a report in lay terms will be sent to the patient. Approximately 15% of breast malignancies will not be visualized mammographically. In the management of a palpable breast mass, a negative mammogram must not discourage biopsy of a clinically suspicious lesion. Electronically Signed By: Jie Lincoln M.D., Ph.D. eb/penrad:03/01/2024 09:57:17 ACR BI-RADS Category 1: Negative PARENCHYMAL PATTERN: (D) - The breast(s) demonstrate(s) heterogeneously dense fibroglandular ale prado. BI-RADS CATEGORY: (1) - 1 RECOMMENDATION: (ANNUAL) - Recommend routine annual screening mammography. [id number] 1 year screening LATERALITY: (B)
== END 2024-02-29 10:58 | disposition home or self-care (01) ==
LOC: DI.N 10:57
DX: Z12.31 Encounter for screening mammogram for malignant neoplasm of breast (principal); R92.333 Mammographic heterogeneous density, bilateral breasts